=== PATIENT | male | born 1960 | race African-American/Black ===

== ENCOUNTER 2017-05-05 05:30 | Outpatient (CLI) | payer BC, OTHER ==
[~2017-05-05] VITALS: Ht 180.3 cm; Wt 95.3 kg
[2017-05-05] MEDS ORDERED: QUET25TA73 PO ×2 (10:49)
[2017-05-05] MEDS ORDERED: METF500T4 PO ×2 (10:49)
[2017-05-05] MEDS ORDERED: BACL10TA PO ×2 (10:49)
[2017-05-05] MEDS ORDERED: NITR100C10 PO ×2 (10:49)
[2017-05-05] MEDS ORDERED: OXYC-465 PO ×2 (10:49)
[2017-05-05] MEDS ORDERED: SIMV10TA3 PO ×2 (10:49)
[2017-05-05] MEDS ORDERED: LISI10TA2 PO ×2 (10:49)
[2017-05-07] MEDS ORDERED: NITR-68 PO ×2 (10:38)
[2017-05-07] MEDS ORDERED: TAMS0.4C98 PO ×2 (10:38)
== END 2017-05-05 10:50 ==
LOC: PREOP 05:30
PROVIDERS: ATTEND Urology
DX: Z01.818 Encounter for other preprocedural examination; N20.1 Calculus of ureter

== ENCOUNTER 2017-05-07 07:15 | Day surgery (SDC) | payer BC, OTHER ==
[~2017-05-07] VITALS: Ht 180.3 cm; Wt 95.3 kg
[~2017-05-07 07:15] MED LIST: BACL10TA PO; LISI10TA2 PO; METF500T4 PO; NITR100C10 PO; OXYC-465 PO; QUET25TA73 PO; SIMV10TA3 PO
[2017-05-07 07:22] VITALS: BP 134/95
--- NOTE | 2017-05-07 07:36 | Progress Note-Pre Operative ---
Pre-Operative Progress Note H&P Reviewed The H&P was reviewed, patient examined and no changes noted. Date Seen by Provider: May 07, 2017 Time Seen by Provider: 07:35 Date H&P Reviewed: May 07, 2017 Time H&P Reviewed: 07:35 Pre-Operative Diagnosis: RT URETERAL STONE KIANA MATSON MD May 07, 2017 7:36 am
[2017-05-07] MEDS ORDERED: LACTATED RINGERS 1,000 ML IV PRN (07:37)
[2017-05-07] MEDS ORDERED: cefTRIAXone 1 GM/NS 50 ML IVPB IV ONE ×2 (07:45)
[2017-05-07] MEDS ORDERED: CATHETER FLUSH 10 ML SYR IV PRN (07:45)
[2017-05-07] MEDS ORDERED: fentaNYL INJECTION 100 MCG/2 ML AMP ONE (08:07)
[2017-05-07] MEDS ORDERED: proPOfol 200 MG/20 ML (DIPRIVAN) VIAL IV ONE (08:08)
[2017-05-07] MEDS ORDERED: MIDAZOLAM 2 MG/2 ML (VERSED) VIAL ONE (08:08)
[2017-05-07] MEDS ORDERED: LACTATED RINGERS 1,000 ML IV ONE (08:08)
[2017-05-07] MEDS ORDERED: SEVOFLURANE (ULTANE) 15 ML INHAL SOLN ONE (08:08)
[2017-05-07] MEDS ORDERED: LIDOCAINE PF 2% 5 ML (XYLOCAINE) VIAL ONE (08:08)
[2017-05-07] MEDS ORDERED: FUROSEMIDE 40 MG/4 ML INJ (LASIX) ONE (08:11)
[2017-05-07] MEDS ORDERED: ONDANSETRON 4 MG/2 ML (SDV) Z0FRAN ONE (08:11)
--- NOTE | 2017-05-07 08:33 | Progress Note-Post Operative ---
Post-Operative Progess Note Surgeon (s)/Shovel Logger (s) Surgeon KIANA MATSON MD Shovel Logger: N/A Pre-Operative Diagnosis RT URETERAL STONE (PROXIMAL) Post-Operative Diagnosis SAME Procedure & Operative Findings Date of Procedure 05/07/17 Procedure Performed/Findings RT ESWL FOR RT PROXIMAL URETERAL STONE Anesthesia Type GENERAL Estimated Blood Loss Estimated blood loss (mL): N/A Specimens/Packing Specimens Removed N/A Packing: N/A KIANA MATSON MD May 07, 2017 8:32 am
--- NOTE | 2017-05-07 08:38 | Discharge Inst-Urology ---
Discharge Inst-Urology Discharge Medications New, Converted, or Re-newed RX: RX on Chart Patient Instructions/Follow Up Plan Please make appointment to been seen in office Saturday 05/12. KUB prior to it KUB on way home Post ESWL instructions Increase oral fluids for 48 hours and then as needed. Diet and Activity as tolerated. If questions or concerns contact your physician Or seek help at emergency department. KIANA MATSON MD May 07, 2017 8:38 am
[2017-05-07 09:45] VITALS: BP 142/94
[2017-05-07 10:15] VITALS: BP 143/95
--- NOTE | 2017-05-07 10:22 | Diagnostic Imaging Report ---
Supine view of the abdomen. INDICATION: Right-sided stone. FINDINGS: There is a 9-mm calcification seen in the mid abdomen at L3-L4 disc level on the right side which may represent a ureteric stone. No other suspicious calcifications identified. Moderate amounts of fecal material seen in the colon. Mild/ moderate degenerative changes of the hip joint seen. IMPRESSION: A 9-mm calcification to the right of the spine at L3-L4 level may represent a proximal right ureteric stone. Dictated by: Dictated on workstation # [id number]
--- NOTE | 2017-05-07 10:31 | Diagnostic Imaging Report ---
Supine view of the abdomen. INDICATION: Post lithotripsy. FINDINGS: A 9-mm proximal right ureter stone is seen at upper L4 level with no gross fragmentation seen at this time. No other definite stone seen. IMPRESSION: Proximal right ureteric 9-mm stone. Dictated by: Dictated on workstation # [id number]
[2017-05-07] MEDS ORDERED: NITR-68 PO (10:38)
[2017-05-07] MEDS ORDERED: TAMS0.4C98 PO (10:38)
[2017-05-07 10:45] VITALS: BP 128/90
[2017-05-07 11:05] VITALS: BP 128/90
--- NOTE | 2017-05-07 17:22 | OPERATIVE REPORT ---
PROCEDURE PHYSICIAN: KIANA MATSON DATE OF PROCEDURE: 05/07/2017 PREOPERATIVE DIAGNOSIS: Right proximal ureteral stone. POSTOPERATIVE DIAGNOSIS: Right proximal ureteral stone. OPERATION: Right ESWL. SURGEON: Tita. ANESTHESIA: General. COMPLICATIONS: None. PROCEDURE: Under satisfactory general anesthesia, the patient supine on the ESWL table, the right proximal ureteral stone was localized. Shocks were delivered KV of 6. Total of 3000 shocks were delivered and the stone was seen to be fragmented well. The patient received 30 mg of Toradol and 40 mg of Lasix at the end of the procedure. He tolerated the procedure and anesthesia well and was sent to recovery room in stable condition. Noted on his lab work that his renal stone profile was essentially normal. When we see him at the office we will do a stone risk profile. I will see him back on Friday with a KUB and depending on the results, we will decide if he needs another ESWL next Friday or not. Job ID: [id number] Dictated Date: 05/07/2017 08:49:11 Public Information Officer Date: 05/07/2017 17:18:02 / fabian
== END 2017-05-07 11:05 | disposition home or self-care (01) ==
LOC: SDC 07:15
PROVIDERS: ATTEND Urology
DX: N20.1 Calculus of ureter (principal); Z11.2 Encounter for screening for other bacterial diseases; I10 Essential (primary) hypertension; E11.9 Type 2 diabetes mellitus without complications; Z79.899 Other long term (current) drug therapy; F17.210 Nicotine dependence, cigarettes, uncomplicated; E78.5 Hyperlipidemia, unspecified; B18.2 Chronic viral hepatitis C; J45.909 Unspecified asthma, uncomplicated
CPT/HCPCS: 74000; 82962; 87081

== ENCOUNTER → 2017-05-13 | Outpatient (CLI) | payer BC ==
[~2017-05-13] MED LIST changes: +NITR-68 PO; +TAMS0.4C98 PO
--- NOTE | 2017-05-13 14:09 | Diagnostic Imaging Report ---
EXAMINATION: Supine view of the abdomen. INDICATION: Right ureteric stone. FINDINGS: When compared to 05/07/2017, the previously seen 9 mm density along the proximal right ureter is not seen. This is possibly related to fragmentation with passage or stone retrieval. No definitive stone is seen at this time along the urinary tract. IMPRESSION: No definite stone is seen at this time. Dictated by: Dictated on workstation # [id number]
== END ==
LOC: RAD 10:35
PROVIDERS: ATTEND Urology
DX: N20.1 Calculus of ureter (principal)
CPT/HCPCS: 74000

== ENCOUNTER → 2020-08-08 | Outpatient (CLI) | payer BC ==
[~2020-08-08] MED LIST changes: +METF-397 PO; -METF500T4 PO; -OXYC-465 PO; +OXYC-556 PO; +SIMV10TA26 PO; -SIMV10TA3 PO; -TAMS0.4C98 PO; +TMSL.4C PO
--- NOTE | 2020-08-08 14:34 | Diagnostic Imaging Report ---
INDICATION: Chronic liver disease, evaluate for osteoporosis, osseous demineralization. COMPARISON: None available. FINDINGS: AP Spine L1-L4: [BMD (g/cm2): 1.018] [T-Score: -1.9] [Z-Score: -2.9] [BMD Previous: NA] [BMD % Change: NA] LT Hip Neck: [BMD (g/cm2): 0.830] [T-Score: -1.8] [Z-Score: -2.4] LT Hip Total: [BMD (g/cm2):0.912] [T-Score:-1.3] [Z-Score: -2.2] [BMD Previous: NA] [BMD % Change: NA] RT Hip Neck: [BMD (g/cm2):1.045] [T-Score:-0.2] [Z-Score:-0.8] RT Hip Total: [BMD (g/cm2):1.004] [T-score:-0.7] [Z-Score:-1.6] [BMD Previous:NA] [BMD % Change:NA] *Indicates significant change from prior examination based on 95% confidence level. World Health Organization criteria for BMD interpretation classify patients as Normal (T-score at or above -1.0), Osteopenic (T-score between -1.0 and -2.5) or Osteoporotic (T-score at or below -2.5). LIMITATIONS AND MODIFICATION: None. FRACTURE RISK (FRAX SCORE): The ten year probability of (%): Major Osteoporotic Fracture: [6.6] Hip Fracture: [1.6] IMPRESSION: 1. Osteopenia (Low bone mass). 2. Baseline examination. 3. See below National Osteoporosis Foundation guidelines on when to potentially initiate pharmacologic therapy. Based on the National Osteoporosis Foundation Guidelines, pharmacologic treatment should be initiated in any of the following, unless clinical conditions suggest otherwise: * Any patient with prior fragility fracture of the hip or vertebrae. A spine fracture indicates 5X risk for subsequent spine fracture and 2X risk for subsequent hip fracture. * Osteoporosis (T-score <-2.5). * Postmenopausal women and men age 50 and older with low bone mass/osteopenia (T-score between -1.0 and -2.5) by DXA and 10-year major osteoporotic fracture greater than 20% or a 10-year probability of hip fracture greater than 3%. These fracture risks are supplied above in the FRAX score, if applicable. * Clinician judgement and/or patient preferences may indicate treatment for people with 10-year fracture probabilities above or below these levels. Dictated by: Dictated on workstation # [id number]
== END ==
LOC: RAD 12:30
PROVIDERS: ATTEND Nurse Practitioner Family
DX: Z13.820 Encounter for screening for osteoporosis (principal); M54.9 Dorsalgia, unspecified; M85.80 Other specified disorders of bone density and structure, unspecified site; K74.69 Other cirrhosis of liver
CPT/HCPCS: 77080

== ENCOUNTER → 2020-12-26 | Outpatient (CLI) | payer OTHER ==
[~2020-12-26] MED LIST changes: -LISI10TA2 PO; +LISI10TA25 PO; +QUET25TA34 PO; -QUET25TA73 PO
[2020-12-26 13:04] LABS: HEMATOCRIT 47 % (40-54); HEMOGLOBIN 15.3 G/DL (13.3-17.7); MEAN CORPUSCULAR HEMOGLOBIN 26 PG (25-34); WHITE BLOOD COUNT 9.5 10^3/uL (4.3-11.0)
[2020-12-26 13:05] LABS: BASOPHILS % (AUTO) 1 % (0-10); EOSINOPHILS # (AUTO) 0.1 10^3/uL (0.0-0.3); EOSINOPHILS % (AUTO) 1 % (0-10); LYMPHOCYTES # (AUTO) 2.9 X 10^3 (1.0-4.0); LYMPHOCYTES % (AUTO) 31 % (12-44); MEAN CORPUSCULAR HGB CONC 33 G/DL (32-36); MEAN CORPUSCULAR VOLUME 81 FL (80-99); MEAN PLATELET VOLUME 9.8 FL (7.4-10.4); MONOCYTES # (AUTO) 0.6 X 10^3 (0.0-1.0); MONOCYTES % (AUTO) 6 % (0-12); NEUTROPHILS # (AUTO) 5.8 X 10^3 (1.8-7.8); NEUTROPHILS % (AUTO) 61 % (42-75); PLATELET COUNT 275 10^3/uL (130-400)
[2020-12-26 13:06] LABS: BASOPHILS # (AUTO) 0.1 10^3/uL (0.0-0.1)
[2020-12-26 13:11] LABS: PROTHROMBIN TIME PATIENT 13.1 SEC (12.2-14.7)
[2020-12-26 13:22] LABS: ALANINE AMINOTRANSFERASE 35 U/L (0-55); ALBUMIN 4.6 GM/DL (3.2-4.5); ALKALINE PHOSPHATASE 100 U/L (40-136); BILIRUBIN,TOTAL 0.3 MG/DL (0.1-1.0); BUN/CREATININE RATIO 16; CALCIUM 9.7 MG/DL (8.5-10.1); CARBON DIOXIDE 20 MMOL/L (21-32); CHLORIDE 102 MMOL/L (98-107); GFR ESTIMATED > 60; GLUCOSE 134 MG/DL (70-105); POTASSIUM 4.6 MMOL/L (3.6-5.0); SODIUM 137 MMOL/L (135-145)
== END ==
LOC: LAB FS 12:29
PROVIDERS: ATTEND Nurse Practitioner Adult Health
DX: K74.60 Unspecified cirrhosis of liver (principal); E11.9 Type 2 diabetes mellitus without complications; E55.9 Vitamin D deficiency, unspecified; Z86.19 Personal history of other infectious and parasitic diseases
CPT/HCPCS: 36415; 80053; 82105; 82306; 85025; 85610

== ENCOUNTER 2021-03-18 07:34 | Inpatient (IN) | payer OTHER ==
[~2021-03-18] VITALS: Ht 180.3 cm; Wt 100.8 kg
[2021-03-18] MEDS ORDERED: NS IV 500 ML 500 ML IV ONE (08:30)
[2021-03-18] MEDS ORDERED: RT-ALBUTEROL/IPRATROPIUM 3 ML (DUONEB) VIAL INH ONE (08:30)
--- NOTE | 2021-03-18 08:30 | ED Respiratory ---
General Chief Complaint: Respiratory Problems Stated Complaint: SOB | COUGH | ABDOMINAL PAIN | HOT FLASH Nursing Triage Note: Patient presents to the ED with c/o of shortness of breath, chest discomfort, and cough. He states that he started having shortness of breath Friday that has worsened over the last 2 days. He reports chest pain when he coughs. He states, "I think I have pneumonia." Patient oxygen saturation 82% on RA placed on 6L of oxygen via nasal cannula and his saturation is now 93%. History of Present Illness Date Seen by Provider: March 18, 2021 Time Seen by Provider: 08:15 Initial Comments 61-year-old male presents with shortness of breath, cough, chest pain with cough. He reports that around 5 days ago he started feeling a little rough but then over the last 2 days he has had increasing cough, shortness of breath. Upon arrival to the ER he O2 saturation was 82%. Patient was placed on O2 initial 6 L and improved to 93 he was slowly decreased to 2 L and maintained. Patient has abdominal discomfort with known liver enlargement with hepatitis C. He feels like he has been sweating a lot. He does not report any fever outside of the "sweating a lot" no nausea vomiting. Denies orthopnea. Allergies and Home Medications Allergies Coded Allergies: No Known Drug Allergies (Unverified , 05/05/17) Home Medications Baclofen 10 Mg Tablet, 10 MG PO TID, (Reported) Lisinopril 10 Mg Tablet, 10 MG PO DAILY, (Reported) Metformin HCl 500 Mg Tablet, 500 MG PO BID WITH MEALS, (Reported) Nitrofurantoin Macrocrystal 100 Mg Capsule, 100 MG PO BID TAKE ONE CAPSULE BY MOUTH TWICE A DAY FOR 7 DAYS. USE ALL OF THIS MEDICATION PRESCRIBED. Prescribed by: NICOLE TALAVERA on 05/07/17 1038 Oxycodone HCl/Acetaminophen 1 Each Tablet, 1 EACH PO Q4H PRN for PAIN-MILD TO MODERATE, (Reported) Quetiapine Fumarate 25 Mg Tablet, 25 MG PO BID, (Reported) Simvastatin 10 Mg Tablet, 10 MG PO DAILY, (Reported) Tamsulosin HCl 0.4 Mg Cap, 0.4 MG PO DAILY TAKE ONE CAPSULE BY MOUTH DAILY FOR 14 DAYS. Prescribed by: NICOLE TALAVERA on 05/07/17 1038 Patient Home Medication List Home Medication List Reviewed: Yes Review of Systems Review of Systems Constitutional: see HPI, malaise Respiratory: cough, short of breath Cardiovascular: No chest pain, No palpitations Gastrointestinal: abdominal pain, other (Distention) Musculoskeletal: no symptoms reported Skin: no symptoms reported Psychiatric/Neurological: No Symptoms Reported Hematologic/Lymphatic: No Symptoms Reported Past Gctfxzv-Jrcpyy-Upepby Hx Past Med/Social Hx: Reviewed Nursing Past Med/Soc Hx Patient Social History Alcohol Use: Occasionally Uses Number of Drinks Today: II Alcohol Beverage of Choice: Other Smoking Status: Current Everyday Smoker Type Used: Cigarettes 2nd Hand Smoke Exposure: No Recent Infectious Disease Expo: No Recent Hopitalizations: No Seasonal Allergies Seasonal Allergies: No Past Medical History Surgeries: Yes (right ing hernia) Respiratory: Yes COPD, Emphysema Cardiac: Yes High Cholesterol, Hypertension Neurological: Yes (seizure one time related to a med) Neuropathy Reproductive Disorders: No Genitourinary: No Kidney Stones Gastrointestinal: Yes (Enlarged Liver) Hepatitis Musculoskeletal: Yes Arthritis Endocrine: Yes Diabetes, Non-Insulin dep Cancer: No Psychosocial: No Integumentary: Yes (STATES HAD A WOUND "STAPH INFECTION" 2007, DENIES MRSA, NO CURRENT WOUNDS) Blood Disorders: No Physical Exam Vital Signs - First Documented 03/18/21 07:35 Temp 36.3 Pulse 122 Resp 31 B/P (MAP) 152/87 (108) Pulse Ox 93 O2 Delivery Nasal Cannula O2 Flow Rate 6.00 Capillary Refill : Less Than 3 Seconds Height: 5'11.00" Weight: 210lbs. 0.0oz. 95.765563dp; 31.00 BMI Method: General Appearance: mild distress Respiratory: no respiratory distress, no accessory muscle use, decreased breath sounds Cardiovascular: normal peripheral pulses, tachycardia Gastrointestinal: soft, distended, tenderness (Mild diffuse) Extremities: normal range of motion, non-tender Skin: normal color, warm/dry, other (Multiple old scars) Focused Exam Lactate Level 03/18/21 08:35: Lactic Acid Level 1.45 Lactic Acid Level Laboratory Tests Test 03/18/21 08:35 Lactic Acid Level 1.45 MMOL/L (0.50-2.00) Progress/Results/Core Measures Suspected Sepsis Recent Fever Within 48 Hours: No Infection Criteria Present: Suspected New Infection New/Unexplained Altered Menta: No Sepsis Screen: Possible Sepsis Risk SIRS Temperature: Pulse: 122 Respiratory Rate: 31 Laboratory Tests 03/18/21 08:35: White Blood Count 13.7H Blood Pressure 152 /87 Mean: 108 03/18/21 08:35: Lactic Acid Level 1.45 Laboratory Tests 03/18/21 08:35: Creatinine 0.81, INR Comment 1.1, Platelet Count 292, Total Bilirubin 0.6 Results/Orders Lab Results Laboratory Tests Test 03/18/21 08:35 03/18/21 08:37 Range/Units White Blood Count 13.7 H 4.3-11.0 10^3/uL Red Blood Count 4.66 4.35-5.85 10^6/uL Hemoglobin 12.6 L 13.3-17.7 G/DL Hematocrit 38 L 40-54 % Mean Corpuscular Volume 82 80-99 FL Mean Corpuscular Hemoglobin 27 25-34 PG Mean Corpuscular Hemoglobin Concent 33 32-36 G/DL Red Cell Distribution Width 15.6 H 10.0-14.5 % Platelet Count 292 130-400 10^3/uL Mean Platelet Volume 10.0 7.4-10.4 FL Immature Granulocyte % (Auto) 1 % Neutrophils (%) (Auto) 80 H 42-75 % Lymphocytes (%) (Auto) 12 12-44 % Monocytes (%) (Auto) 6 0-12 % Eosinophils (%) (Auto) 1 0-10 % Basophils (%) (Auto) 0 0-10 % Neutrophils # (Auto) 11.0 H 1.8-7.8 X 10^3 Lymphocytes # (Auto) 1.6 1.0-4.0 X 10^3 Monocytes # (Auto) 0.8 0.0-1.0 X 10^3 Eosinophils # (Auto) 0.1 0.0-0.3 10^3/uL Basophils # (Auto) 0.1 0.0-0.1 10^3/uL Immature Granulocyte # (Auto) 0.1 0.0-0.1 10^3/uL Prothrombin Time 14.6 12.2-14.7 SEC INR Comment 1.1 0.8-1.4 Sodium Level 131 L 135-145 MMOL/L Potassium Level 6.4 H 3.6-5.0 MMOL/L Chloride Level 101 98-107 MMOL/L Carbon Dioxide Level 17 L 21-32 MMOL/L Anion Gap 13 5-14 MMOL/L Blood Urea Nitrogen 9 7-18 MG/DL Creatinine 0.81 0.60-1.30 MG/DL Estimat Glomerular Filtration Rate > 60 BUN/Creatinine Ratio 11 Glucose Level 112 H 70-105 MG/DL Lactic Acid Level 1.45 0.50-2.00 MMOL/L Calcium Level 9.1 8.5-10.1 MG/DL Corrected Calcium 9.8 8.5-10.1 MG/DL Total Bilirubin 0.6 0.1-1.0 MG/DL Aspartate Amino Transf (AST/SGOT) 66 H 5-34 U/L Alanine Aminotransferase (ALT/SGPT) 22 0-55 U/L Alkaline Phosphatase 102 40-136 U/L Troponin I < 0.30 <0.30 NG/ML Pro-B-Type Natriuretic Peptide 250.1 H <75.0 PG/ML Total Protein 8.0 6.4-8.2 GM/DL Albumin 3.1 L 3.2-4.5 GM/DL C-Reactive Protein 28.65 H <0.50 MG/DL My Orders Orders - LYNCH,MALENA L DO Cbc With Automated Diff (03/18/21 08:30) Comprehensive Metabolic Panel (03/18/21 08:30) Lactic Acid Analyzer (03/18/21 08:30) Troponin I Fs (03/18/21 08:30) Chest Pa/Lat (2 View) (03/18/21 08:30) Ed Iv/Invasive Line Start (03/18/21 08:30) Ns Iv 500 Ml (Sodium Chloride 0.9%) (03/18/21 08:30) Albuterol/Ipra Inhalation Soln (Duoneb I (03/18/21 08:30) Svn Small Volume Nebulizer (03/18/21 08:30) Ekg Tracing (03/18/21 07:50) Crp Fs (03/18/21 08:37) Arterial Blood Gas (03/18/21 09:36) Protime With Inr (03/18/21 09:36) Probnp Fs (03/18/21 09:36) Furosemide Injection (Lasix Injection) (03/18/21 09:45) Nitroglycerin 0.4 Mg Btl 25's (Nitrostat (03/18/21 10:00) Medications Given in ED Current Medications Medications Dose Ordered Sig/Marcio Route Start Time Stop Time Status Last Admin Dose Admin Albuterol/ Ipratropium 3 ml ONCE ONCE INH 03/18/21 08:30 03/18/21 08:33 DC 03/18/21 08:49 3 ML Furosemide 40 mg ONCE ONCE IVP 03/18/21 09:45 03/18/21 09:47 DC 03/18/21 09:52 40 MG Sodium Chloride 500 ml @ 0 mls/hr Q0M ONCE IV 03/18/21 08:30 03/18/21 08:33 DC 03/18/21 08:49 999 MLS/HR Vital Signs/I&O 03/18/21 07:35 Temp 36.3 Pulse 122 Resp 31 B/P (MAP) 152/87 (108) Pulse Ox 93 O2 Delivery Nasal Cannula O2 Flow Rate 6.00 Capillary Refill : Less Than 3 Seconds Blood Pressure Mean: 108 Progress Note : Progress Note Patient with oxygen improvement at 2 L of O2. He is feeling a lot better. Patient felt better following a DuoNeb treatment. Patient has x-ray that shows mixed picture of pulmonary edema with likely some pneumonia. Patient be treated with some Rocephin, azithromycin and IV Lasix. Patient to be transferred to [place] for further inpatient treatment hospitalization. Discussed with Dr. Pearce who accepted patient. She would like patient placed in ICU for observation initially. Dr. Pearce requested ABG. Patient is a very difficult stick due to previous IV drug use in the past. Lab and nursing was able to get radial blood draw. Patient was offered femoral stick but declined, stating that he would go home first. Patient will be transferred in stable condition and he says they can attempt the ABG down there. Patient was also offered BiPAP to help push some of fluid off his lines and declined at this time. ECG Initial ECG Impression Date: March 18, 2021 Initial ECG Impression Time: 07:50 Initial ECG Rate: 121 Initial ECG Rhythm: S.Tach Initial ECG Impression: Nonspecific Changes Comment Sinus tach, occasional pac, no acute findings. Diagnostic Imaging Diagonstic Imaging: Xray Plain Films/CT/US/NM/MRI: chest Comments Indication: Shortness of breath. Findings: There is widespread abnormal interstitial and alveolar opacities demonstrated within the lungs that demonstrates some peripheral sparing. There is enlargement of the cardiac silhouette. Primary considerations would include pulmonary edema though the possibility of multifocal pneumonia would need to be considered in the appropriate setting. There is no large effusion. There is no pneumothorax. IMPRESSION: Widespread bilateral abnormal interstitial and alveolar opacities which do demonstrate some apparent peripheral sparing. Primary considerations would be that of pulmonary edema though a multifocal pneumonia would need to be considered. Chest CT follow-up should also be considered after treatment. Departure Impression Primary Impression: Pneumonia Qualified Codes: J18.9 - Pneumonia, unspecified organism Additional Impression: Pulmonary edema Qualified Codes: J81.0 - Acute pulmonary edema Disposition: 30 STILL A PATIENT Condition: Stable Admissions Decision to Admit Reason: Admit from ER (General) Decision to Admit/Date: March 18, 2021 Time/Decision to Admit Time: 09:53 Departure-Patient Inst. Referrals: LIAM SCHERER APRN (PCP/Family) Primary Care Physician MALENA LYNCH DO March 18, 2021 08:30
[2021-03-18 08:45] LABS: BASOPHILS # (AUTO) 0.1 10^3/uL (0.0-0.1); BASOPHILS % (AUTO) 0 % (0-10); EOSINOPHILS # (AUTO) 0.1 10^3/uL (0.0-0.3); EOSINOPHILS % (AUTO) 1 % (0-10); HEMATOCRIT 38 % (40-54); HEMOGLOBIN 12.6 G/DL (13.3-17.7); LYMPHOCYTES # (AUTO) 1.6 X 10^3 (1.0-4.0); LYMPHOCYTES % (AUTO) 12 % (12-44); MEAN CORPUSCULAR HEMOGLOBIN 27 PG (25-34); MEAN CORPUSCULAR HGB CONC 33 G/DL (32-36); MEAN CORPUSCULAR VOLUME 82 FL (80-99); MONOCYTES # (AUTO) 0.8 X 10^3 (0.0-1.0); MONOCYTES % (AUTO) 6 % (0-12); NEUTROPHILS % (AUTO) 80 % (42-75); PLATELET COUNT 292 10^3/uL (130-400); WHITE BLOOD COUNT 13.7 10^3/uL (4.3-11.0)
[2021-03-18 09:08] LABS: SODIUM 131 MMOL/L (135-145)
[2021-03-18 09:09] LABS: CARBON DIOXIDE 17 MMOL/L (21-32); CHLORIDE 101 MMOL/L (98-107)
[2021-03-18 09:10] LABS: ALANINE AMINOTRANSFERASE 22 U/L (0-55); ALBUMIN 3.1 GM/DL (3.2-4.5); ALKALINE PHOSPHATASE 102 U/L (40-136); BILIRUBIN,TOTAL 0.6 MG/DL (0.1-1.0); BUN/CREATININE RATIO 11; CALCIUM 9.1 MG/DL (8.5-10.1); CREATININE SERUM 0.81 MG/DL (0.60-1.30); GFR ESTIMATED > 60; GLUCOSE 112 MG/DL (70-105)
--- NOTE | 2021-03-18 09:15 | Diagnostic Imaging Report ---
Indication: Shortness of breath. Findings: There is widespread abnormal interstitial and alveolar opacities demonstrated within the lungs that demonstrates some peripheral sparing. There is enlargement of the cardiac silhouette. Primary considerations would include pulmonary edema though the possibility of multifocal pneumonia would need to be considered in the appropriate setting. There is no large effusion. There is no pneumothorax. IMPRESSION: Widespread bilateral abnormal interstitial and alveolar opacities which do demonstrate some apparent peripheral sparing. Primary considerations would be that of pulmonary edema though a multifocal pneumonia would need to be considered. Chest CT follow-up should also be considered after treatment. Dictated by: Dictated on workstation # [id number]
[2021-03-18 09:28] LABS: POTASSIUM 6.4 MMOL/L (3.6-5.0)
[2021-03-18] MEDS ORDERED: FUROSEMIDE 40 MG/4 ML INJ (LASIX) IVP ONE (09:45)
[2021-03-18] MEDS ORDERED: NITROGLYCERIN 0.4 MG SL TABS BTL 25'S SL ONE ×2 (09:53→10:00)
[2021-03-18 09:55] LABS: INR 1.1 (0.8-1.4); PROTHROMBIN TIME PATIENT 14.6 SEC (12.2-14.7)
--- NOTE | 2021-03-18 11:29 | History & Physical-Hospitalist ---
History of Present Illness HPI/Chief Complaint CC: Dyspnea HPI: This is a 61yoAAM clinic patient of [facility] who presents to ICU 2 from [facility] ER due to acute respiratory failure. Patient appears to have pulmonary edema and PNA. COVID test was negative. BiPAP was attempted but he did not tolerate that well and will transition to Vapotherm after reviewing his ABG. Abx maintained and all home meds were restarted. Patient has a h/o HCV and hepatomegly but his abdomen appears to be distended. Source: patient, RN/MD, old records Exam Limitations: clinical condition (on biPAP) Date Seen 03/18/21 Time Seen by a Provider: 12:15 Attending Physician Lakisha Pearce Bradley P Aprn Referring Physician Date of Admission March 18, 2021 at 11:00 Home Medications & Allergies Home Medications Reviewed patient Home Medication Reconciliation performed by pharmacy medication reconciliations chemistry technician and/or nursing. Patients Allergies have been reviewed. Allergies Allergies Coded Allergies No Known Drug Allergies (Unverified05/05/17) Past Medical/Social/Family Hx Patient Social History Marrital Status: single Employed/Student: unemployed Tobacco Use?: Yes Smoking Status: Current Everyday Smoker Alcohol Use?: Yes Alcohol type: Beer, Hard Liquor Alcohol Frequency: Daily Immunizations Up To Date First/Initial COVID19 Vaccinat: December 2020 Second COVID19 Vaccination Leon: January 2021 Past Medical History HCV Chronic pain on Oxycodone Hepatomegly Mood disorder on Seroquel HTN DM Depression BPH Review of Systems Constitutional: see HPI, malaise, weakness Respiratory: dyspnea on exertion Physical Exam Physical Exam Vital Signs Vital Signs - First Documented 03/18/21 03/18/21 07:35 11:10 Temp 36.3 Pulse 122 Resp 31 B/P (MAP) 152/87 (108) Pulse Ox 93 O2 Delivery Nasal Cannula O2 Flow Rate 6.00 FiO2 80 Capillary Refill : Less Than 3 Seconds Height, Weight, BMI Height: 5'11.00" Weight: 210lbs. 0.0oz. 95.773319kf; 31.00 BMI Method: General Appearance: Anxious, Chronically ill, Mild Distress Eyes: Right Eye Normal Inspection, Right Eye PERRL HEENT: PERRL/EOMI, Normal ENT Inspection, Pharynx Normal, Moist Mucous Membranes Neck: Full Range of Motion, Normal Inspection, Non Tender Respiratory: Chest Non Tender, Lungs Clear, Normal Breath Sounds, No Accessory Muscle Use, No Respiratory Distress Cardiovascular: Regular Rate, Rhythm, No Edema, No Gallop, No JVD, No Murmur, Normal Peripheral Pulses Gastrointestinal: Normal Bowel Sounds, No Organomegaly, No Pulsatile Mass, Soft, Hepatomegaly, Tenderness Back: Normal Inspection, No CVA Tenderness, No Vertebral Tenderness Extremity: Normal Capillary Refill, Normal Inspection, Normal Range of Motion, Non Tender, No Calf Tenderness, No Pedal Edema Neurologic/Psychiatric: Alert, Oriented x3, No Motor/Sensory Deficits, Normal Mood/Affect Skin: Normal Color, Warm/Dry Lymphatic: No Adenopathy Results Results/Procedures Labs Laboratory Tests 03/18/21 08:35 03/19/21 03:21 Patient resulted labs reviewed. Assessment/Plan Admission Diagnosis Assessment: Acute respiratory failure placed on biPAP PNA Pulmonary edema Leukocytosis Alcoholism Smoker HCV Chronic pain on Oxycodone Hepatomegly Mood disorder on Seroquel HTN DM Depression BPH Plan: Home meds IV abx ICU Vapotherm Monitor closely Admission Status: Inpatient Order (span 2 midnights) Reason for Inpatient Admission: resp failure Diagnosis/Problems Diagnosis/Problems (1) Pneumonia Status: Acute Qualifiers: Pneumonia type: due to unspecified organism Laterality: unspecified laterality Lung location: unspecified part of lung Qualified Codes: J18.9 - Pneumonia, unspecified organism (2) Pulmonary edema Status: Acute Qualifiers: Chronicity: acute Qualified Codes: J81.0 - Acute pulmonary edema LAKISHA PEARCE DO March 18, 2021 11:29
[2021-03-18 11:40] VITALS: BP 105/72
[2021-03-18 11:43] LABS: ABG BASE EXCESS -3.8 MMOL/L (-2.5-2.5); ABG OXYGEN SATURATION 61 % (94-100); ABG PCO2 36 MMHG (35-45); ABG PH 7.37 (7.37-7.43); ABG TCO2 21.9 MMOL/L (21.0-31.0); ALLENS TEST POSITIVE; INSPIRED O2 80; VENTILATOR NO
[2021-03-18 11:44] LABS: PATIENT TEMP 37
[2021-03-18 11:45] LABS: ABG PO2 37 MMHG (79-93)
[2021-03-18 12:00] LABS: ABG BASE EXCESS -3.3 MMOL/L (-2.5-2.5); ABG OXYGEN SATURATION 97 % (94-100); ABG PCO2 35 MMHG (35-45); ABG PH 7.39 (7.37-7.43); ABG PO2 78 MMHG (79-93); ABG TCO2 21.9 MMOL/L (21.0-31.0)
[2021-03-18 12:02] LABS: ALLENS TEST POSITIVE; INSPIRED O2 60; PATIENT TEMP 37; VENTILATOR NO
[2021-03-18 12:20] VITALS: BP 102/73
[2021-03-18] MEDS ORDERED: RT-ALBUTEROL/IPRATROPIUM 3 ML (DUONEB) VIAL INH PRN (12:30)
[2021-03-18] MEDS ORDERED: CATHETER FLUSH 10 ML SYR IV PRN (12:45)
[2021-03-18] MEDS ORDERED: RT-ALBUTEROL SULF 2.5 MG/3 ML PRE-MIX VIAL IH PRN (12:45)
[2021-03-18] MEDS: AZITHROMYCIN 500 MG/NS 250 ML IVPB IV SCH ×2 (13:08)
[2021-03-18] MEDS: ENOXAPARIN 40 MG/0.4 ML (LOVENOX) SYR SC SCH (13:08)
[2021-03-18] MEDS: cefTRIAXone 1,000 MG/SWFI 10 ML IV PUSH IV SCH ×2 (13:08)
[2021-03-18] MEDS: RT-ALBUTEROL/IPRATROPIUM 3 ML (DUONEB) VIAL INH SCH ×3 (13:27→21:14)
[2021-03-18] MEDS: CATHETER FLUSH 10 ML SYR IV SCH ×2 (14:28→22:06)
[2021-03-18] MEDS ORDERED: OXYC10TA7 PO (17:14)
[2021-03-18] MEDS ORDERED: NON-FORMULARY MEDICATION 1 EA EA (Oxycodone HCl 10 MG) PO PRN (17:15)
[2021-03-18] MEDS ORDERED: AMLO5TAB4 PO (19:48)
[2021-03-18] MEDS ORDERED: GLIP10TA13 PO (19:48)
[2021-03-18] MEDS ORDERED: SERT-412 PO (19:48)
[2021-03-18] MEDS ORDERED: OMEP20TA7 PO (19:48)
[2021-03-18] MEDS ORDERED: EMPA1TAB21 PO (19:50)
[2021-03-18] MEDS: QUEtiapine 25 MG (SEROquel) TAB IMMEDIATE RELEASE PO SCH (21:21)
[2021-03-19] MEDS: RT-ALBUTEROL/IPRATROPIUM 3 ML (DUONEB) VIAL INH SCH ×6 (02:31→21:46)
[2021-03-19 03:34] LABS: BASOPHILS % (AUTO) 0 % (0-10); EOSINOPHILS # (AUTO) 0.1 10^3/uL (0.0-0.3); EOSINOPHILS % (AUTO) 1 % (0-10); HEMATOCRIT 34 % (40-54); HEMOGLOBIN 11.1 g/dL (13.3-17.7); LYMPHOCYTES # (AUTO) 2.8 10^3/uL (1.0-4.0); LYMPHOCYTES % (AUTO) 18 % (12-44); MEAN CORPUSCULAR HEMOGLOBIN 27 pg (25-34); MEAN CORPUSCULAR HGB CONC 33 g/dL (32-36); MEAN CORPUSCULAR VOLUME 82 fL (80-99); MEAN PLATELET VOLUME 9.6 fL (9.0-12.2); MONOCYTES # (AUTO) 1.4 10^3/uL (0.0-1.0); MONOCYTES % (AUTO) 9 % (0-12); NEUTROPHILS # (AUTO) 10.7 10^3/uL (1.8-7.8); NEUTROPHILS % (AUTO) 71 % (42-75); PLATELET COUNT 308 10^3/uL (130-400); WHITE BLOOD COUNT 15.2 10^3/uL (4.3-11.0)
[2021-03-19 03:59] LABS: BUN/CREATININE RATIO 9; CALCIUM 9.2 MG/DL (8.5-10.1); CARBON DIOXIDE 20 MMOL/L (21-32); CHLORIDE 103 MMOL/L (98-107); CREATININE SERUM 1.02 MG/DL (0.60-1.30); GFR ESTIMATED > 60; GLUCOSE 104 MG/DL (70-105); MAGNESIUM 1.7 MG/DL (1.6-2.4); PHOSPHORUS 3.2 MG/DL (2.3-4.7); POTASSIUM 3.8 MMOL/L (3.6-5.0); SODIUM 136 MMOL/L (135-145)
[2021-03-19 04:09] LABS: BAND NEUTROPHILS 2 %; LYMPHOCYTES % (MANUAL) 22 %; MONOCYTES % (MANUAL) 10 %; NEUTROPHILS % (MANUAL) 66 %
[2021-03-19 04:10] LABS: ANISOCYTOSIS SLIGHT; NUCLEATED RED BLOOD CELLS 1; POIKILOCYTOSIS SLIGHT; POLYCHROMASIA SLIGHT; SPHEROCYTES SLIGHT
--- NOTE | 2021-03-19 06:05 | Pulmonary Consultation ---
History of Present Illness History of Present Illness Date Seen by Provider: March 19, 2021 Time Seen by Provider: 05:56 Date of Admission Allergies and Home Medications Allergies Coded Allergies: No Known Drug Allergies (Unverified , 05/05/17) Home Medications Amlodipine Besylate 5 Mg Tablet, 5 MG PO DAILY, (Reported) Baclofen 10 Mg Tablet, 10 MG PO TID, (Reported) Empagliflozin/Metformin HCl 1 Each Tab.bp.24h, 1 EACH PO DAILY, (Reported) Glipizide 10 Mg Tablet, 10 MG PO DAILY, (Reported) Lisinopril 10 Mg Tablet, 40 MG PO DAILY, (Reported) Nitrofurantoin Macrocrystal 100 Mg Capsule, 100 MG PO BID TAKE ONE CAPSULE BY MOUTH TWICE A DAY FOR 7 DAYS. USE ALL OF THIS MEDICATION PRESCRIBED. Prescribed by: NICOLE TALAVERA on 05/07/17 1038 Omeprazole 20 Mg Tablet.dr, 20 MG PO DAILY, (Reported) Oxycodone HCl 10 Mg Tablet, 10 MG PO TID PRN for PAIN-MODERATE (5-7), (Reported) Oxycodone HCl/Acetaminophen 1 Each Tablet, 1 EACH PO Q4H PRN for PAIN-MILD TO MODERATE, (Reported) Quetiapine Fumarate 25 Mg Tablet, 100 MG PO BID, (Reported) Sertraline HCl 25 Mg Tablet, 25 MG PO DAILY, (Reported) Simvastatin 10 Mg Tablet, 10 MG PO DAILY, (Reported) Tamsulosin HCl 0.4 Mg Cap, 0.4 MG PO DAILY TAKE ONE CAPSULE BY MOUTH DAILY FOR 14 DAYS. Prescribed by: NICOLE TALAVERA on 05/07/17 1038 Past Jmykrxn-Ckhcvw-Xihtdb Hx Past Med/Social Hx: Reviewed Nursing Past Med/Soc Hx Patient Social History Alcohol Use: Occasionally Uses Number of Drinks Today: II Alcohol Beverage of Choice: Other Smoking Status: Current Everyday Smoker Type Used: Cigarettes 2nd Hand Smoke Exposure: No Recent Infectious Disease Expo: No Recent Hopitalizations: No Have you traveled recently?: No Alcohol Use?: Yes Seasonal Allergies Seasonal Allergies: No Past Medical History Surgeries: Yes (right ing hernia) Respiratory: Yes COPD, Emphysema Cardiac: Yes High Cholesterol, Hypertension Neurological: Yes (seizure one time related to a med) Neuropathy Reproductive Disorders: No Genitourinary: No Kidney Stones Gastrointestinal: Yes (Enlarged Liver) Hepatitis Musculoskeletal: Yes Arthritis Endocrine: Yes Diabetes, Non-Insulin dep Cancer: No Psychosocial: No Integumentary: Yes (STATES HAD A WOUND "STAPH INFECTION" 2007, DENIES MRSA, NO CURRENT WOUNDS) Blood Disorders: No Review of Systems Time Seen by Provider: 05:56 Sepsis Event Evaluation Height, Weight, BMI Height: 5'11.00" Weight: 210lbs. 0.0oz. 95.273684oa; 31.99 BMI Method: Exam Exam Vital Signs Date Time Temp Pulse Resp B/P (MAP) Pulse Ox O2 Delivery O2 Flow Rate FiO2 03/19/21 05:23 96 Vapotherm 35.00 50.00 03/19/21 04:15 97 Vapotherm 35.00 60.00 03/19/21 04:00 114 85/57 (66) 95 Vapotherm 35.00 70.00 03/19/21 04:00 Vapotherm 30.00 70 03/19/21 04:00 36.5 03/19/21 03:18 117 108/72 (84) 94 Vapotherm 35.00 70.00 03/19/21 03:00 117 94 Vapotherm 35.00 70.00 03/19/21 02:31 95 Vapotherm 35.00 60 03/19/21 02:00 112 125/93 (104) 97 Vapotherm 35.00 70.00 03/19/21 01:00 113 03/19/21 01:00 113 30 129/80 (96) 95 Vapotherm 35.00 70.00 03/19/21 00:51 113 126/81 (96) 94 Vapotherm 35.00 70.00 03/19/21 00:00 Vapotherm 30.00 70 03/19/21 00:00 37.0 03/18/21 23:00 118 36 110/67 (81) 94 Vapotherm 35.00 70.00 03/18/21 22:00 116 38 127/80 (96) 97 Vapotherm 35.00 70.00 03/18/21 21:40 115 124/81 (95) 96 Vapotherm 35.00 70.00 03/18/21 21:14 93 Vapotherm 35.00 60 03/18/21 20:00 Vapotherm 30.00 70 03/18/21 20:00 121 28 96 Vapotherm 35.00 70.00 03/18/21 19:19 36.6 120 24 131/83 (99) 93 Vapotherm 35.00 70.00 03/18/21 19:01 93 Vapotherm 35.00 60 03/18/21 19:00 118 03/18/21 18:00 115 97/71 (80) 100 Vapotherm 35.00 70.00 03/18/21 17:00 112 102/70 (81) 94 Vapotherm 35.00 70.00 03/18/21 16:00 Vapotherm 03/18/21 15:34 37.4 118 25 98/80 (86) 93 Vapotherm 35.00 70.00 03/18/21 15:26 35.00 60.00 03/18/21 15:08 94 Vapotherm 35.00 60 03/18/21 15:00 121 36 98/80 (90) 90 Vapotherm 35.00 70.00 03/18/21 14:00 94/66 (76) Vapotherm 35.00 80.00 03/18/21 14:00 35.00 70.00 03/18/21 13:22 95 Vapotherm 35.00 80 03/18/21 13:00 117 26 111/80 (90) 95 Vapotherm 35.00 80.00 03/18/21 12:40 132 03/18/21 12:20 36.3 123 96 80 03/18/21 12:15 Vapotherm 35.00 80.00 03/18/21 12:12 96 Vapotherm 35.00 80 03/18/21 12:00 123 34 102/73 (83) 93 NIV Bilevel 80.00 03/18/21 11:40 128 44 94 60.00 03/18/21 11:10 NIV Bilevel 80 03/18/21 11:10 143 30 147/107 (120) 99 NIV Bilevel 80.00 03/18/21 10:06 36.3 129 26 128/78 (108) 93 Nasal Cannula 3.00 03/18/21 07:35 36.3 122 31 152/87 (108) 93 Nasal Cannula 6.00 I & O 03/19/21 07:00 Intake Total 965 ml Output Total 450 ml Balance 515 ml Height & Weight Height: 5'11.00" Weight: 210lbs. 0.0oz. 95.263028fk; 31.99 BMI Method: General Appearance: Anxious, Chronically ill, Mild Distress HEENT: PERRL/EOMI, Normal ENT Inspection, Pharynx Normal, Moist Mucous Membranes Neck: Full Range of Motion, Normal Inspection, Non Tender Respiratory: Chest Non Tender, Lungs Clear, Normal Breath Sounds, No Accessory Muscle Use, No Respiratory Distress Cardiovascular: Regular Rate, Rhythm, No Edema, No Gallop, No JVD, No Murmur, Normal Peripheral Pulses Capillary Refill: Less Than 3 Seconds Gastrointestinal: soft, distended, tenderness (Mild diffuse) Extremity: Normal Capillary Refill, Normal Inspection, Normal Range of Motion, Non Tender, No Calf Tenderness, No Pedal Edema Neurologic/Psychiatric: Alert, Oriented x3, No Motor/Sensory Deficits, Normal Mood/Affect Skin: Normal Color, Warm/Dry Lymphatic: No Adenopathy Results Lab Laboratory Tests 03/18/21 08:35 03/19/21 03:21 Assessment/Plan Assessment/Plan Acute respiratory failure -Currently on Vapotherm 50% PNA -Rocephin and Azithromax -Cultures pending -Check RVP and influenza -COVID is negative Pulmonary Edema -Lasix -Check ECHO -IVF currently hep locked Alcoholism -Monitor Tobacco dependance -Education HCV Chronic pain on oxycodone HTN DM Depression BPH VETO LANE DO March 19, 2021 06:05
[2021-03-19] MEDS: CATHETER FLUSH 10 ML SYR IV SCH ×3 (06:09→22:35)
[2021-03-19] MEDS: glipiZIDE 5 MG (GLUCOTROL) TAB PO SCH (07:01)
--- NOTE | 2021-03-19 07:33 | Diagnostic Imaging Report ---
INDICATION: Followup pneumonia. Dyspnea. COMPARISON: 03/18/2021 FINDINGS: Single frontal radiographic view of the chest was obtained and continues to demonstrate diffuse prominence of the interstitium with more focal confluent alveolar opacities of the bilateral lower lung bowie, left greater than right. Consolidation of the left base appears more prominent. There is no large effusion or pneumothorax. Cardiac silhouette is mildly enlarged. Pulmonary vasculature is stable. Osseous structures show no acute abnormalities. IMPRESSION: 1. Persistent bilateral diffuse mixed interstitial and alveolar opacities with interval progression of consolidation in the left lower lung. Appearance may be on the basis of mixed interstitial and alveolar edema, although pneumonia remains within the differential. Clinical correlation is advised. 2. Cardiomegaly. Dictated by: Dictated on workstation # [id number]
[2021-03-19] MEDS: amLODIPine 5 MG (NORVASC) TAB PO SCH (08:38)
[2021-03-19] MEDS: SERTRALINE 50 MG (ZOLOFT) TABLET PO SCH (08:38)
[2021-03-19] MEDS: lisINopril 10 MG (PRINIVIL) TABLET PO SCH (08:38)
[2021-03-19] MEDS: QUEtiapine 25 MG (SEROquel) TAB IMMEDIATE RELEASE PO SCH ×2 (08:38→19:47)
[2021-03-19] MEDS: SIMvastatin 10 MG (ZOCOR) TAB PO SCH (08:38)
[2021-03-19] MEDS: PANTOPRAZOLE 20 MG TABLET (PROTONIX) PO SCH (08:38)
[2021-03-19] MEDS ORDERED: ASPI-1238 PO (09:09)
[2021-03-19] MEDS ORDERED: GABA300C PO (09:09)
[2021-03-19] MEDS ORDERED: FENO48TA10 PO (09:09)
[2021-03-19] MEDS ORDERED: AMLO-250 PO (09:09)
[2021-03-19] MEDS ORDERED: QUET100T33 PO (09:09)
[2021-03-19] MEDS ORDERED: EMPA1TAB15 PO (09:09)
[2021-03-19] MEDS ORDERED: TIZA4TAB4 PO (09:09)
[2021-03-19] MEDS ORDERED: LISI40TA9 PO (09:09)
[2021-03-19] MEDS ORDERED: OMEP20CA18 PO (09:09)
[2021-03-19] MEDS: ENOXAPARIN 40 MG/0.4 ML (LOVENOX) SYR SC SCH (13:30)
[2021-03-19] MEDS: AZITHROMYCIN 500 MG/NS 250 ML IVPB IV SCH ×2 (13:30)
[2021-03-19] MEDS: cefTRIAXone 1,000 MG/SWFI 10 ML IV PUSH IV SCH ×2 (13:30)
--- NOTE | 2021-03-19 15:21 | Progress Note ---
Subjective Subjective/Events-last exam Pt states he feels slightly better since admission, but still feels markedly short of breath and overall poorly. Focused Exam Lactate Level 03/18/21 08:35: Lactic Acid Level 1.45 Objective Exam Last Set of Vital Signs Vital Signs Date Time Temp Pulse Resp B/P (MAP) Pulse Ox O2 Delivery O2 Flow Rate FiO2 03/19/21 14:59 94 Vapotherm 25.00 40 03/19/21 14:00 116 48 116/99 (105) 03/19/21 11:51 37.0 Capillary Refill : Less Than 3 Seconds I&O Intake and Output 03/19/21 00:00 Intake Total 915 ml Output Total 450 ml Balance 465 ml Intake Oral 915 ml Output Urine Total 450 ml # Voids 2 Daily Weight Change No General: Alert, Mild Distress Lungs: Clear to Auscultation Heart: No Murmurs, Other (tachycardic) Neuro: Normal Speech Psych/Mental Status: Mood NL Results/Procedures Lab Laboratory Tests 03/19/21 03:21: White Blood Count 15.2H, Red Blood Count 4.14L, Hemoglobin 11.1L, Hematocrit 34L , Mean Corpuscular Volume 82, Mean Corpuscular Hemoglobin 27, Mean Corpuscular Hemoglobin Concent 33, Red Cell Distribution Width 15.0H, Platelet Count 308, Mean Platelet Volume 9.6, Immature Granulocyte % (Auto) 1, Neutrophils (%) (Auto) 71, Lymphocytes (%) (Auto) 18, Monocytes (%) (Auto) 9, Eosinophils (%) (Auto) 1, Basophils (%) (Auto) 0, Neutrophils # (Auto) 10.7H, Lymphocytes # (Auto) 2.8, Monocytes # (Auto) 1.4H, Eosinophils # (Auto) 0.1, Basophils # (Auto) 0.0, Immature Granulocyte # (Auto) 0.2H, Neutrophils % (Manual) 66, Lymphocytes % (Manual) 22, Monocytes % (Manual) 10, Band Neutrophils 2, Nucleated Red Blood Cells 1, Polychromasia SLIGHT, Poikilocytosis SLIGHT, Anisocytosis SLIGHT, Spherocytes SLIGHT, Sodium Level 136, Potassium Level 3.8, Chloride Level 103, Carbon Dioxide Level 20L, Anion Gap 13, Blood Urea Nitrogen 9, Creatinine 1.02, Estimat Glomerular Filtration Rate > 60, BUN/Creatinine Ratio 9, Glucose Level 104, Calcium Level 9.2, Phosphorus Level 3.2, Magnesium Level 1.7 03/19/21 10:28: Microbiology 03/19/21 Influenza Types A,B Antigen (ALESHA) - Final, Complete Assessment/Plan Assessment/Plan (1) Pneumonia Status: Acute Assessment & Plan: Multifocal infiltrate on x-ray with possible consolidation left lower lung. May need CT for further work-up if not improving as expected. Sars-CoV-2 negative, Flu A and B neg, respiratory viral panel pending. Continue azithromycin and ceftriaxone. Qualifiers: Qualified Codes: J18.9 - Pneumonia, unspecified organism (2) Pulmonary edema Status: Acute Assessment & Plan: Echo with hyperdynamic function and grade 1 diastolic dysfunction. BNP slightly elevated, will give a dose of lasix. Qualifiers: Qualified Codes: J81.0 - Acute pulmonary edema (3) Acute respiratory failure Status: Acute Assessment & Plan: Secondary to pulmonary edema/pneumonia. Requiring 6 lpm supplemental oxygen, declined bipap previously and is currently on vapotherm, but stable. Qualifiers: Qualified Codes: J96.01 - Acute respiratory failure with hypoxia (4) Diabetes mellitus, type 2 Status: Chronic Assessment & Plan: Home glipizide was continued and metformin/Jardiance held. Qualifiers: Qualified Codes: E11.65 - Type 2 diabetes mellitus with hyperglycemia (5) Hepatitis C Status: Chronic Qualifiers: (6) Hypertension Status: Chronic Assessment & Plan: Borderline hypotensive, monitor closely. Qualifiers: Qualified Codes: I10 - Essential (primary) hypertension (7) DVT prophylaxis Status: Acute Assessment & Plan: Enoxaparin JAIME VALLADARES MD March 19, 2021 15:21
[2021-03-19] MEDS ORDERED: FUROSEMIDE 40 MG (LASIX) TAB PO ONE (20:45)
[2021-03-20] MEDS: RT-ALBUTEROL/IPRATROPIUM 3 ML (DUONEB) VIAL INH SCH ×6 (02:20→22:00)
[2021-03-20 03:40] LABS: BASOPHILS # (AUTO) 0.1 10^3/uL (0.0-0.1); BASOPHILS % (AUTO) 0 % (0-10); EOSINOPHILS # (AUTO) 0.2 10^3/uL (0.0-0.3); EOSINOPHILS % (AUTO) 2 % (0-10); HEMATOCRIT 32 % (40-54); HEMOGLOBIN 10.8 g/dL (13.3-17.7); LYMPHOCYTES # (AUTO) 2.2 10^3/uL (1.0-4.0); LYMPHOCYTES % (AUTO) 20 % (12-44); MEAN CORPUSCULAR HEMOGLOBIN 27 pg (25-34); MEAN CORPUSCULAR HGB CONC 33 g/dL (32-36); MEAN CORPUSCULAR VOLUME 81 fL (80-99); MEAN PLATELET VOLUME 9.5 fL (9.0-12.2); MONOCYTES # (AUTO) 1.1 10^3/uL (0.0-1.0); MONOCYTES % (AUTO) 10 % (0-12); NEUTROPHILS # (AUTO) 7.2 10^3/uL (1.8-7.8); NEUTROPHILS % (AUTO) 65 % (42-75); PLATELET COUNT 362 10^3/uL (130-400); WHITE BLOOD COUNT 11.1 10^3/uL (4.3-11.0)
[2021-03-20 04:00] LABS: CHLORIDE 103 MMOL/L (98-107); POTASSIUM 3.8 MMOL/L (3.6-5.0); SODIUM 139 MMOL/L (135-145)
[2021-03-20 04:01] LABS: CALCIUM 9.7 MG/DL (8.5-10.1); GLUCOSE 103 MG/DL (70-105)
[2021-03-20 04:03] LABS: CARBON DIOXIDE 19 MMOL/L (21-32)
[2021-03-20 04:05] LABS: CREATININE SERUM 0.88 MG/DL (0.60-1.30); GFR ESTIMATED > 60; PHOSPHORUS 3.6 MG/DL (2.3-4.7)
[2021-03-20 04:06] LABS: BUN/CREATININE RATIO 11
[2021-03-20 04:08] LABS: MAGNESIUM 1.9 MG/DL (1.6-2.4)
--- NOTE | 2021-03-20 05:49 | Pulmonary Progress Note ---
Subjective Time Seen by a Provider: 05:45 Subjective/Events-last exam Pt appears to be doing better. Sepsis Event Evaluation Height, Weight, BMI Height: 5'11.00" Weight: 210lbs. 0.0oz. 95.962989le; 31.99 BMI Method: Focused Exam Lactate Level 03/18/21 08:35: Lactic Acid Level 1.45 Exam Exam Vital Signs Date Time Temp Pulse Resp B/P (MAP) Pulse Ox O2 Delivery O2 Flow Rate FiO2 03/20/21 04:00 107 20 137/88 (104) 93 Vapotherm 25.00 25.00 03/20/21 04:00 93 Vapotherm 25.00 30 03/20/21 03:32 37.0 112 36 93 Vapotherm 20.00 25.00 03/20/21 03:00 111 20 118/70 (86) 97 Vapotherm 25.00 35.00 03/20/21 02:20 94 Vapotherm 25.00 30 03/20/21 02:00 113 20 118/65 (82) 93 Vapotherm 25.00 35.00 03/20/21 01:00 112 03/20/21 01:00 110 20 120/72 (88) 100 Vapotherm 25.00 35.00 03/20/21 00:11 36.4 Vapotherm 25.00 30.00 03/20/21 00:00 95 Vapotherm 25.00 30 03/20/21 00:00 111 20 141/80 (100) 96 Vapotherm 25.00 35.00 03/19/21 23:00 112 18 125/85 (98) 96 Vapotherm 25.00 35.00 03/19/21 22:00 110 43 121/86 (98) 96 Vapotherm 25.00 35.00 03/19/21 21:47 94 Vapotherm 25.00 40 03/19/21 21:00 110 45 132/83 (99) 94 Vapotherm 25.00 35.00 03/19/21 20:00 37.3 03/19/21 20:00 97 Vapotherm 25.00 35 03/19/21 20:00 110 25 102/88 (93) 96 Vapotherm 25.00 35.00 03/19/21 19:48 39 98 Vapotherm 25.00 35.00 03/19/21 19:21 92 Vapotherm 25.00 40 03/19/21 19:00 110 24 122/83 (96) 96 Vapotherm 25.00 40.00 03/19/21 19:00 110 03/19/21 18:00 108 40 125/76 (92) 96 Vapotherm 25.00 40.00 03/19/21 17:00 112 39 111/66 (81) 95 Vapotherm 25.00 40.00 03/19/21 16:00 Vapotherm 25.00 40 03/19/21 16:00 129 61 115/74 (88) 93 Vapotherm 25.00 40.00 03/19/21 16:00 37.7 03/19/21 14:59 94 Vapotherm 25.00 40 03/19/21 14:00 116 48 116/99 (105) 94 Vapotherm 25.00 40.00 03/19/21 13:00 117 29 92/63 (73) 92 Vapotherm 25.00 40.00 03/19/21 12:42 126 03/19/21 12:00 Vapotherm 25.00 40 03/19/21 12:00 116 43 119/72 (88) 92 Vapotherm 25.00 40.00 03/19/21 11:51 37.0 03/19/21 11:00 116 47 102/70 (81) 94 Vapotherm 25.00 40.00 03/19/21 10:37 92 Vapotherm 25.00 40 03/19/21 10:15 Vapotherm 25.00 40.00 03/19/21 10:00 Vapotherm 20.00 40.00 03/19/21 10:00 123 55 116/83 (94) 82 Vapotherm 20.00 40.00 03/19/21 09:00 116 38 98/70 (79) 85 Vapotherm 20.00 30.00 03/19/21 08:00 113 25 89 Vapotherm 20.00 30.00 03/19/21 08:00 Vapotherm 20.00 30 03/19/21 07:40 36.2 03/19/21 07:00 112 42 91 Vapotherm 20.00 30.00 03/19/21 06:58 114 03/19/21 06:38 112 90 Vapotherm 20.00 30.00 03/19/21 06:35 91 Vapotherm 20.00 30 03/19/21 06:15 97 Vapotherm 25.00 40.00 03/19/21 06:00 111 92/68 (76) 94 Vapotherm 35.00 50.00 I & O 03/20/21 06:59 Intake Total 940 ml Output Total 25 ml Balance 915 ml Height & Weight Height: 5'11.00" Weight: 210lbs. 0.0oz. 95.212833xt; 31.99 BMI Method: General Appearance: Anxious, Chronically ill, Mild Distress HEENT: PERRL/EOMI, Normal ENT Inspection, Pharynx Normal, Moist Mucous Membranes Neck: Full Range of Motion, Normal Inspection, Non Tender Respiratory: Chest Non Tender, Lungs Clear, Normal Breath Sounds, No Accessory Muscle Use, No Respiratory Distress Cardiovascular: Regular Rate, Rhythm, No Edema, No Gallop, No JVD, No Murmur, Normal Peripheral Pulses Capillary Refill: Less Than 3 Seconds Gastrointestinal: soft, distended, tenderness (Mild diffuse) Extremity: Normal Capillary Refill, Normal Inspection, Normal Range of Motion, Non Tender, No Calf Tenderness, No Pedal Edema Neurologic/Psychiatric: Alert, Oriented x3, No Motor/Sensory Deficits, Normal Mood/Affect Skin: Normal Color, Warm/Dry Lymphatic: No Adenopathy Results Lab Laboratory Tests 03/18/21 08:35 03/19/21 03:21 03/20/21 03:30 Assessment/Plan Assessment/Plan Acute respiratory failure -Currently on Vapotherm 50% PNA -Rocephin and Azithromax -Cultures pending -Check RVP and influenza -COVID is negative Pulmonary Edema -Lasix -Check ECHO -IVF currently hep locked Alcoholism -Monitor Tobacco dependance -Education HCV Chronic pain on oxycodone HTN DM Depression BPH VETO LANE DO March 20, 2021 05:49
[2021-03-20] MEDS ORDERED: KCL 20 MEQ TAB (K-DUR) PO ONE (06:00)
[2021-03-20] MEDS ORDERED: FUROSEMIDE 40 MG/4 ML INJ (LASIX) IVP ONE (06:00)
[2021-03-20] MEDS: glipiZIDE 5 MG (GLUCOTROL) TAB PO SCH (06:34)
[2021-03-20] MEDS: CATHETER FLUSH 10 ML SYR IV SCH ×3 (06:34→19:31)
--- NOTE | 2021-03-20 08:00 | Diagnostic Imaging Report ---
INDICATION: Pulmonary edema, pneumonia, follow-up. Dyspnea. TECHNIQUE: Single view chest 2:51 AM. CORRELATION STUDY: 03/19/2021 FINDINGS: Heart size remains enlarged. Vasculature is largely obscured. Scattered asymmetric areas of bilateral pulmonary opacities are again demonstrated. Most pronounced at the lung bases right slightly greater than left. There is also some involvement of the upper lobe distributions as well. IMPRESSION: 1. Extensive multilobe mixed alveolar infiltrates are again demonstrated. Overall without definitive change from prior. Dictated by: Dictated on workstation # [id number]
--- NOTE | 2021-03-20 08:40 | Progress Note ---
Subjective Subjective/Events-last exam Afebrile, still feeling short of breath, but better than yesterday. Focused Exam Lactate Level 03/18/21 08:35: Lactic Acid Level 1.45 Objective Exam Last Set of Vital Signs Vital Signs Date Time Temp Pulse Resp B/P (MAP) Pulse Ox O2 Delivery O2 Flow Rate FiO2 03/20/21 08:32 118/83 (95) 03/20/21 08:00 36.4 114 30 93 Vapotherm 25.00 25.00 03/20/21 07:05 25 Capillary Refill : Less Than 3 Seconds I&O Intake and Output 03/20/21 00:00 Intake Total 1090 ml Output Total 25 ml Balance 1065 ml Intake Oral 1090 ml Output Urine Total 25 ml # Voids 11 General: Alert, No Acute Distress Lungs: Other (decreased air movement throughout) Heart: Other (tachycardic) Neuro: Normal Speech Psych/Mental Status: Mood NL Results/Procedures Lab Laboratory Tests 03/19/21 10:28: 03/20/21 03:30: White Blood Count 11.1H, Red Blood Count 4.01L, Hemoglobin 10.8L, Hematocrit 32L , Mean Corpuscular Volume 81, Mean Corpuscular Hemoglobin 27, Mean Corpuscular Hemoglobin Concent 33, Red Cell Distribution Width 14.9H, Platelet Count 362, Mean Platelet Volume 9.5, Immature Granulocyte % (Auto) 3, Neutrophils (%) (Auto) 65, Lymphocytes (%) (Auto) 20, Monocytes (%) (Auto) 10, Eosinophils (%) (Auto) 2, Basophils (%) (Auto) 0, Neutrophils # (Auto) 7.2, Lymphocytes # (Auto) 2.2, Monocytes # (Auto) 1.1H, Eosinophils # (Auto) 0.2, Basophils # (Auto) 0.1, Immature Granulocyte # (Auto) 0.3H, Sodium Level 139, Potassium Level 3.8, Chloride Level 103, Carbon Dioxide Level 19L, Anion Gap 17H, Blood Urea Nitrogen 10, Creatinine 0.88, Estimat Glomerular Filtration Rate > 60, BUN/Creatinine Ratio 11, Glucose Level 103, Calcium Level 9.7, Phosphorus Level 3.6, Magnesium Level 1.9 Microbiology 03/19/21 Influenza Types A,B Antigen (ALESHA) - Final, Complete Assessment/Plan Assessment/Plan (1) Pneumonia Status: Acute Assessment & Plan: Multifocal infiltrate on x-ray with possible consolidation left lower lung. May need CT for further work-up if not improving as expected. Sars-CoV-2 negative, Flu A and B neg, respiratory viral panel pending. Continue azithromycin and ceftriaxone. 03/20 will add prednisone given history of suspected COPD per patient report. Qualifiers: Qualified Codes: J18.9 - Pneumonia, unspecified organism (2) Pulmonary edema Status: Acute Assessment & Plan: Echo with hyperdynamic function and grade 1 diastolic dysfunction. BNP slightly elevated, will give a dose of lasix. 03/20 some clinical improvement with lasix, will continue daily for now. Qualifiers: Qualified Codes: J81.0 - Acute pulmonary edema (3) Acute respiratory failure Status: Acute Assessment & Plan: Secondary to pulmonary edema/pneumonia. Requiring 6 lpm supplemental oxygen, declined bipap previously and is currently on vapotherm, but stable. 03/20 stable on vapotherm at FiO2 25%, will transfer to floor with telemetry Qualifiers: Qualified Codes: J96.01 - Acute respiratory failure with hypoxia (4) Diabetes mellitus, type 2 Status: Chronic Assessment & Plan: Home glipizide was continued and metformin/Jardiance held. 03/20 sliding scale insulin, diabetic diet Qualifiers: Qualified Codes: E11.65 - Type 2 diabetes mellitus with hyperglycemia (5) Hepatitis C Status: Chronic Assessment & Plan: per patient, history of treatment with follow up und etectable viral load. Qualifiers: (6) Hypertension Status: Chronic Assessment & Plan: Borderline hypotensive, monitor closely. Qualifiers: Qualified Codes: I10 - Essential (primary) hypertension (7) DVT prophylaxis Status: Acute Assessment & Plan: Enoxaparin JAIME VALLADARES MD March 20, 2021 08:40
[2021-03-20] MEDS: FUROSEMIDE 40 MG (LASIX) TAB PO SCH (08:50)
[2021-03-20] MEDS: predniSONE 20 MG TAB PO SCH (08:50)
[2021-03-20] MEDS: lisINopril 10 MG (PRINIVIL) TABLET PO SCH (08:50)
[2021-03-20] MEDS: SIMvastatin 10 MG (ZOCOR) TAB PO SCH (08:50)
[2021-03-20] MEDS: PANTOPRAZOLE 20 MG TABLET (PROTONIX) PO SCH (08:51)
[2021-03-20] MEDS: ASPIRIN E.C. 81 MG (ECOTRIN) TAB PO SCH (08:51)
[2021-03-20] MEDS: amLODIPine 5 MG (NORVASC) TAB PO SCH (08:51)
[2021-03-20] MEDS: SERTRALINE 50 MG (ZOLOFT) TABLET PO SCH (08:51)
[2021-03-20] MEDS: AZITHROMYCIN 250 MG TAB (ZITHROMAX) PO SCH (08:51)
[2021-03-20] MEDS: QUEtiapine 25 MG (SEROquel) TAB IMMEDIATE RELEASE PO SCH ×2 (08:51→19:31)
[2021-03-20] MEDS: cefTRIAXone 1,000 MG/SWFI 10 ML IV PUSH IV SCH ×2 (12:32)
[2021-03-20] MEDS: inSUlin ASPART (NovoLOG) 1 UNIT/0.01 ML (CHARGE PER UNIT) SC SCH ×4 (12:33→21:32)
[2021-03-20] MEDS: ENOXAPARIN 40 MG/0.4 ML (LOVENOX) SYR SC SCH (12:33)
[2021-03-21] MEDS: RT-ALBUTEROL/IPRATROPIUM 3 ML (DUONEB) VIAL INH SCH ×6 (02:03→21:30)
[2021-03-21 06:20] LABS: HEMATOCRIT 33 % (40-54); HEMOGLOBIN 11.1 g/dL (13.3-17.7); MEAN CORPUSCULAR HEMOGLOBIN 27 pg (25-34); MEAN CORPUSCULAR HGB CONC 34 g/dL (32-36); MEAN CORPUSCULAR VOLUME 80 fL (80-99); MEAN PLATELET VOLUME 9.6 fL (9.0-12.2); PLATELET COUNT 455 10^3/uL (130-400); WHITE BLOOD COUNT 9.8 10^3/uL (4.3-11.0)
[2021-03-21] MEDS: CATHETER FLUSH 10 ML SYR IV SCH ×3 (06:22→22:55)
[2021-03-21] MEDS: inSUlin ASPART (NovoLOG) 1 UNIT/0.01 ML (CHARGE PER UNIT) SC SCH ×4 (06:22→21:33)
[2021-03-21] MEDS: glipiZIDE 5 MG (GLUCOTROL) TAB PO SCH (06:23)
[2021-03-21 06:34] LABS: ALBUMIN 3.4 GM/DL (3.2-4.5)
[2021-03-21 06:35] LABS: CHLORIDE 103 MMOL/L (98-107); POTASSIUM 3.7 MMOL/L (3.6-5.0); SODIUM 138 MMOL/L (135-145)
[2021-03-21 06:36] LABS: CALCIUM 10.1 MG/DL (8.5-10.1)
[2021-03-21 06:37] LABS: GLUCOSE 121 MG/DL (70-105); TOTAL PROTEIN 7.6 GM/DL (6.4-8.2)
[2021-03-21 06:38] LABS: CARBON DIOXIDE 23 MMOL/L (21-32)
[2021-03-21 06:39] LABS: BILIRUBIN,TOTAL 0.4 MG/DL (0.1-1.0)
[2021-03-21 06:40] LABS: ALKALINE PHOSPHATASE 99 U/L (40-136)
[2021-03-21 06:41] LABS: CREATININE SERUM 0.81 MG/DL (0.60-1.30); GFR ESTIMATED > 60
[2021-03-21 06:42] LABS: BUN/CREATININE RATIO 21
[2021-03-21 06:43] LABS: ALANINE AMINOTRANSFERASE 79 U/L (0-55)
[2021-03-21] MEDS: QUEtiapine 25 MG (SEROquel) TAB IMMEDIATE RELEASE PO SCH ×2 (09:38→21:33)
[2021-03-21] MEDS: amLODIPine 5 MG (NORVASC) TAB PO SCH (09:39)
[2021-03-21] MEDS: ASPIRIN E.C. 81 MG (ECOTRIN) TAB PO SCH (09:39)
[2021-03-21] MEDS: predniSONE 20 MG TAB PO SCH (09:39)
[2021-03-21] MEDS: PANTOPRAZOLE 20 MG TABLET (PROTONIX) PO SCH (09:40)
[2021-03-21] MEDS: lisINopril 10 MG (PRINIVIL) TABLET PO SCH (09:40)
[2021-03-21] MEDS: SIMvastatin 10 MG (ZOCOR) TAB PO SCH (09:44)
[2021-03-21] MEDS: FUROSEMIDE 40 MG (LASIX) TAB PO SCH (09:44)
[2021-03-21] MEDS: cefTRIAXone 1,000 MG/SWFI 10 ML IV PUSH IV SCH ×2 (09:45)
[2021-03-21] MEDS: SERTRALINE 50 MG (ZOLOFT) TABLET PO SCH (09:45)
[2021-03-21] MEDS: AZITHROMYCIN 250 MG TAB (ZITHROMAX) PO SCH (09:45)
[2021-03-21] MEDS: ENOXAPARIN 40 MG/0.4 ML (LOVENOX) SYR SC SCH (09:45)
[2021-03-21 11:14] LABS: PARAINFLU 1 PCR Not Detected (Not Detected); PARAINFLU 2 PCR Not Detected (Not Detected); RSV PCR TEST Not Detected (Not Detected)
--- NOTE | 2021-03-21 13:45 | Progress Note ---
Subjective Subjective/Events-last exam Feeling much better, is on nasal cannula this morning. He states he does not want to go home with oxygen. Objective Exam Last Set of Vital Signs Vital Signs Date Time Temp Pulse Resp B/P (MAP) Pulse Ox O2 Delivery O2 Flow Rate FiO2 03/21/21 12:34 99 03/21/21 12:00 35.9 20 108/68 (81) 97 High Flow N/C 4.00 3.00 03/21/21 07:29 30 Capillary Refill : Less Than 3 Seconds I&O Intake and Output 03/20/21 23:59 Intake Total 1370 ml Balance 1370 ml Intake Oral 1370 ml # Voids 8 General: Alert, No Acute Distress Lungs: Clear to Auscultation, Normal Air Movement Heart: Regular Rate, No Murmurs Abdomen: Normal Bowel Sounds, Other (distended) Extremities: No Edema Psych/Mental Status: Mood NL Results/Procedures Lab Laboratory Tests 03/20/21 17:02: Glucometer 200H 03/20/21 21:06: Glucometer 204H 03/20/21 21:08: Glucometer 215H 03/21/21 06:10: Glucometer 101 03/21/21 06:15: White Blood Count 9.8, Red Blood Count 4.12L, Hemoglobin 11.1L, Hematocrit 33L, Mean Corpuscular Volume 80, Mean Corpuscular Hemoglobin 27, Mean Corpuscular Hemoglobin Concent 34, Red Cell Distribution Width 14.6H, Platelet Count 455H, Mean Platelet Volume 9.6, Sodium Level 138, Potassium Level 3.7, Chloride Level 103, Carbon Dioxide Level 23, Anion Gap 12, Blood Urea Nitrogen 17, Creatinine 0.81, Estimat Glomerular Filtration Rate > 60, BUN/Creatinine Ratio 21, Glucose Level 121H, Calcium Level 10.1, Corrected Calcium 10.6H, Total Bilirubin 0.4, Aspartate Amino Transf (AST/SGOT) 104H, Alanine Aminotransferase (ALT/SGPT) 79H, Alkaline Phosphatase 99, Total Protein 7.6, Albumin 3.4 03/21/21 10:57: Glucometer 155H Microbiology 03/19/21 Influenza Types A,B Antigen (ALESHA) - Final, Complete Assessment/Plan Assessment/Plan (1) Pneumonia Status: Acute Assessment & Plan: Multifocal infiltrate on x-ray with possible consolidation left lower lung. May need CT for further work-up if not improving as expected. Sars-CoV-2 negative, Flu A and B neg, respiratory viral panel pending. Continue azithromycin and ceftriaxone. 03/20 will add prednisone given history of suspected COPD per patient report. 03/21 significantly improved, continue prednisone burst and wean oxygen as tolerated Qualifiers: Qualified Codes: J18.9 - Pneumonia, unspecified organism (2) Pulmonary edema Status: Acute Assessment & Plan: Echo with hyperdynamic function and grade 1 diastolic dysfunction. BNP slightly elevated, will give a dose of lasix. 03/20 some clinical improvement with lasix, will continue daily for now. Qualifiers: Qualified Codes: J81.0 - Acute pulmonary edema (3) Acute respiratory failure Status: Acute Assessment & Plan: Secondary to pulmonary edema/pneumonia. Requiring 6 lpm supplemental oxygen, declined bipap previously and is currently on vapotherm, but stable. 03/20 stable on vapotherm at FiO2 25%, will transfer to floor with telemetry 03/21 continued improvement, on 2 lpm nasal cannula at time of exam Qualifiers: Qualified Codes: J96.01 - Acute respiratory failure with hypoxia (4) Diabetes mellitus, type 2 Status: Chronic Assessment & Plan: Home glipizide was continued and metformin/Jardiance held. 03/20 sliding scale insulin, diabetic diet Qualifiers: Qualified Codes: E11.65 - Type 2 diabetes mellitus with hyperglycemia (5) Hepatitis C Status: Chronic Assessment & Plan: per patient, history of treatment with follow up undetectable viral load. Qualifiers: (6) Hypertension Status: Chronic Assessment & Plan: Borderline hypotensive, monitor closely. Qualifiers: Qualified Codes: I10 - Essential (primary) hypertension (7) DVT prophylaxis Status: Acute Assessment & Plan: Enoxaparin JAIME VALLADARES MD March 21, 2021 13:45
[2021-03-21 15:42] VITALS: BP 108/68
[2021-03-22] MEDS: RT-ALBUTEROL/IPRATROPIUM 3 ML (DUONEB) VIAL INH SCH ×6 (02:24→22:21)
[2021-03-22 05:28] LABS: HEMATOCRIT 33 % (40-54); MEAN CORPUSCULAR HEMOGLOBIN 27 pg (25-34); MEAN CORPUSCULAR HGB CONC 33 g/dL (32-36); MEAN CORPUSCULAR VOLUME 81 fL (80-99); MEAN PLATELET VOLUME 9.4 fL (9.0-12.2); PLATELET COUNT 535 10^3/uL (130-400)
[2021-03-22 05:39] LABS: ALBUMIN 3.4 GM/DL (3.2-4.5); CHLORIDE 102 MMOL/L (98-107); POTASSIUM 3.7 MMOL/L (3.6-5.0); SODIUM 137 MMOL/L (135-145)
[2021-03-22 05:41] LABS: CALCIUM 9.7 MG/DL (8.5-10.1)
[2021-03-22 05:42] LABS: GLUCOSE 122 MG/DL (70-105); TOTAL PROTEIN 7.5 GM/DL (6.4-8.2)
[2021-03-22 05:43] LABS: CARBON DIOXIDE 22 MMOL/L (21-32)
[2021-03-22] MEDS: inSUlin ASPART (NovoLOG) 1 UNIT/0.01 ML (CHARGE PER UNIT) SC SCH ×4 (05:43→20:54)
[2021-03-22] MEDS: CATHETER FLUSH 10 ML SYR IV SCH ×3 (05:43→20:42)
[2021-03-22 05:44] LABS: BILIRUBIN,TOTAL 0.3 MG/DL (0.1-1.0)
[2021-03-22 05:45] LABS: ALKALINE PHOSPHATASE 92 U/L (40-136); CREATININE SERUM 0.86 MG/DL (0.60-1.30); GFR ESTIMATED > 60
[2021-03-22 05:46] LABS: BUN/CREATININE RATIO 20
[2021-03-22 05:48] LABS: ALANINE AMINOTRANSFERASE 140 U/L (0-55)
[2021-03-22] MEDS: glipiZIDE 5 MG (GLUCOTROL) TAB PO SCH (06:01)
[2021-03-22] MEDS: ASPIRIN E.C. 81 MG (ECOTRIN) TAB PO SCH (09:04)
[2021-03-22] MEDS: AZITHROMYCIN 250 MG TAB (ZITHROMAX) PO SCH (09:04)
[2021-03-22] MEDS: predniSONE 20 MG TAB PO SCH (09:04)
[2021-03-22] MEDS: lisINopril 10 MG (PRINIVIL) TABLET PO SCH (09:04)
[2021-03-22] MEDS: amLODIPine 5 MG (NORVASC) TAB PO SCH (09:04)
[2021-03-22] MEDS: SIMvastatin 10 MG (ZOCOR) TAB PO SCH (09:04)
[2021-03-22] MEDS: FUROSEMIDE 40 MG (LASIX) TAB PO SCH (09:04)
[2021-03-22] MEDS: PANTOPRAZOLE 20 MG TABLET (PROTONIX) PO SCH (09:04)
[2021-03-22] MEDS: SERTRALINE 50 MG (ZOLOFT) TABLET PO SCH (09:04)
[2021-03-22] MEDS: QUEtiapine 25 MG (SEROquel) TAB IMMEDIATE RELEASE PO SCH ×2 (09:04→20:42)
--- NOTE | 2021-03-22 13:01 | Progress Note ---
Subjective Subjective/Events-last exam Doing pretty well overall, but gets short of breath when he tries to go to sleep. Objective Exam Last Set of Vital Signs Vital Signs Date Time Temp Pulse Resp B/P (MAP) Pulse Ox O2 Delivery O2 Flow Rate FiO2 03/22/21 10:32 92 Room Air 03/22/21 09:18 36.6 84 18 114/68 (83) 03/22/21 08:30 03/21/21 15:42 28 Capillary Refill : Less Than 3 Seconds I&O Intake and Output 03/22/21 00:00 Intake Total 2340 ml Balance 2340 ml Intake Oral 2340 ml # Voids 9 General: Alert, No Acute Distress Lungs: Clear to Auscultation, Normal Air Movement Heart: Regular Rate Abdomen: Other (distended) Extremities: No Edema Psych/Mental Status: Mood NL Results/Procedures Lab Laboratory Tests 03/21/21 16:32: Glucometer 170H 03/21/21 19:51: Glucometer 184H 03/22/21 05:20: White Blood Count 10.0, Red Blood Count 4.10L, Hemoglobin 11.0L, Hematocrit 33L, Mean Corpuscular Volume 81, Mean Corpuscular Hemoglobin 27, Mean Corpuscular Hemoglobin Concent 33, Red Cell Distribution Width 14.8H, Platelet Count 535H, Mean Platelet Volume 9.4, Sodium Level 137, Potassium Level 3.7, Chloride Level 102, Carbon Dioxide Level 22, Anion Gap 13, Blood Urea Nitrogen 17, Creatinine 0.86, Estimat Glomerular Filtration Rate > 60, BUN/Creatinine Ratio 20, Glucose Level 122H, Calcium Level 9.7, Corrected Calcium 10.2H, Total Bilirubin 0.3, Aspartate Amino Transf (AST/SGOT) 154H, Alanine Aminotransferase (ALT/SGPT) 140H , Alkaline Phosphatase 92, Total Protein 7.5, Albumin 3.4 03/22/21 10:51: Glucometer 192H Microbiology 03/19/21 Influenza Types A,B Antigen (ALESHA) - Final, Complete Assessment/Plan Assessment/Plan (1) Pneumonia Status: Acute Assessment & Plan: Multifocal infiltrate on x-ray with possible consolidation left lower lung. May need CT for further work-up if not improving as expected. Sars-CoV-2 negative, Flu A and B neg, respiratory viral panel pending. Continue azithromycin and ceftriaxone. 03/20 will add prednisone given history of suspected COPD per patient report. 03/21 significantly improved, continue prednisone burst and wean oxygen as tolerated 03/22 will do overnight oxygen study to see if he needs home O2 for nighttime use, is not requiring during the day today Qualifiers: Qualified Codes: J18.9 - Pneumonia, unspecified organism (2) Pulmonary edema Status: Acute Assessment & Plan: Echo with hyperdynamic function and grade 1 diastolic dysfunction. BNP slightly elevated, will give a dose of lasix. 03/20 some clinical improvement with lasix, will continue daily for now. Qualifiers: Qualified Codes: J81.0 - Acute pulmonary edema (3) Acute respiratory failure Status: Resolved Assessment & Plan: Secondary to pulmonary edema/pneumonia. Requiring 6 lpm supplemental oxygen, declined bipap previously and is currently on vapotherm, but stable. 03/20 stable on vapotherm at FiO2 25%, will transfer to floor with telemetry 03/21 continued improvement, on 2 lpm nasal cannula at time of exam 03/22 tolerating room air most of the time while awake Qualifiers: Qualified Codes: J96.01 - Acute respiratory failure with hypoxia (4) Diabetes mellitus, type 2 Status: Chronic Assessment & Plan: Home glipizide was continued and metformin/Jardiance held. 03/20 sliding scale insulin, diabetic diet Qualifiers: Qualified Codes: E11.65 - Type 2 diabetes mellitus with hyperglycemia (5) Hepatitis C Status: Chronic Assessment & Plan: per patient, history of treatment with follow up undetectable viral load. Qualifiers: (6) Hypertension Status: Chronic Assessment & Plan: Borderline hypotensive, monitor closely. Qualifiers: Qualified Codes: I10 - Essential (primary) hypertension (7) DVT prophylaxis Status: Acute Assessment & Plan: Enoxaparin JAIME VALLADARES MD March 22, 2021 13:01
[2021-03-22] MEDS ORDERED: cefTRIAXone 1,000 MG IV (ROCEPHIN) VIAL ONE (13:49)
[2021-03-22] MEDS: ENOXAPARIN 40 MG/0.4 ML (LOVENOX) SYR SC SCH (14:16)
[2021-03-22] MEDS: cefTRIAXone 1,000 MG/SWFI 10 ML IV PUSH IV SCH ×2 (14:16)
[2021-03-23] MEDS: RT-ALBUTEROL/IPRATROPIUM 3 ML (DUONEB) VIAL INH SCH ×3 (02:38→10:48)
[2021-03-23] MEDS: inSUlin ASPART (NovoLOG) 1 UNIT/0.01 ML (CHARGE PER UNIT) SC SCH ×2 (05:31→11:20)
[2021-03-23] MEDS: glipiZIDE 5 MG (GLUCOTROL) TAB PO SCH (05:31)
[2021-03-23] MEDS: CATHETER FLUSH 10 ML SYR IV SCH ×2 (05:32→13:16)
[2021-03-23 05:38] LABS: HEMATOCRIT 35 % (40-54); HEMOGLOBIN 11.6 g/dL (13.3-17.7); MEAN CORPUSCULAR HEMOGLOBIN 27 pg (25-34); MEAN CORPUSCULAR HGB CONC 33 g/dL (32-36); MEAN CORPUSCULAR VOLUME 81 fL (80-99); MEAN PLATELET VOLUME 9.4 fL (9.0-12.2); PLATELET COUNT 617 10^3/uL (130-400); WHITE BLOOD COUNT 11.4 10^3/uL (4.3-11.0)
[2021-03-23 06:01] LABS: ALBUMIN 3.5 GM/DL (3.2-4.5); CHLORIDE 103 MMOL/L (98-107); POTASSIUM 3.8 MMOL/L (3.6-5.0); SODIUM 137 MMOL/L (135-145)
[2021-03-23 06:03] LABS: CALCIUM 9.7 MG/DL (8.5-10.1)
[2021-03-23 06:04] LABS: GLUCOSE 111 MG/DL (70-105); TOTAL PROTEIN 7.3 GM/DL (6.4-8.2)
[2021-03-23 06:05] LABS: CARBON DIOXIDE 21 MMOL/L (21-32)
[2021-03-23 06:06] LABS: BILIRUBIN,TOTAL 0.2 MG/DL (0.1-1.0)
[2021-03-23 06:07] LABS: ALKALINE PHOSPHATASE 96 U/L (40-136)
[2021-03-23 06:08] LABS: CREATININE SERUM 0.77 MG/DL (0.60-1.30); GFR ESTIMATED > 60
[2021-03-23 06:09] LABS: BUN/CREATININE RATIO 22
[2021-03-23 06:10] LABS: ALANINE AMINOTRANSFERASE 150 U/L (0-55)
[2021-03-23] MEDS: ASPIRIN E.C. 81 MG (ECOTRIN) TAB PO SCH (09:25)
[2021-03-23] MEDS: QUEtiapine 25 MG (SEROquel) TAB IMMEDIATE RELEASE PO SCH (09:25)
[2021-03-23] MEDS: SERTRALINE 50 MG (ZOLOFT) TABLET PO SCH (09:26)
[2021-03-23] MEDS: FUROSEMIDE 40 MG (LASIX) TAB PO SCH (09:26)
[2021-03-23] MEDS: lisINopril 10 MG (PRINIVIL) TABLET PO SCH (09:26)
[2021-03-23] MEDS: PANTOPRAZOLE 20 MG TABLET (PROTONIX) PO SCH (09:26)
[2021-03-23] MEDS: predniSONE 20 MG TAB PO SCH (09:26)
[2021-03-23] MEDS: amLODIPine 5 MG (NORVASC) TAB PO SCH (09:26)
[2021-03-23] MEDS: SIMvastatin 10 MG (ZOCOR) TAB PO SCH (09:27)
[2021-03-23] MEDS ORDERED: RT-ALBUINH IH (10:53)
[2021-03-23] MEDS ORDERED: PRD20T PO (10:53)
--- NOTE | 2021-03-23 11:01 | Discharge Summary ---
Discharge Summary Hospital Course Problems/Diagnosis: (1) Pneumonia Status: Acute Assessment & Plan: Multifocal infiltrate on x-ray with possible consolidation left lower lung. May need CT for further work-up if not improving as expected. Sars-CoV-2 negative, Flu A and B neg, respiratory viral panel pending. Continue azithromycin and ceftriaxone. 03/20 will add prednisone given history of suspected COPD per patient report. 03/21 significantly improved, continue prednisone burst and wean oxygen as tolerated 03/22 will do overnight oxygen study to see if he needs home O2 for nighttime use, is not requiring during the day today 03/23 maintaining oxygenation well on room air, 5 days of ceftriaxone and azithromycin completed. Qualifiers: Qualified Codes: J18.9 - Pneumonia, unspecified organism (2) Pulmonary edema Status: Resolved Resolution Date/Time: 03/23/21 @ 10:55 Assessment & Plan: Echo with hyperdynamic function and grade 1 diastolic dysfunction. BNP slightly elevated, will give a dose of lasix. 03/20 some clinical improvement with lasix, will continue daily for now. 03/22 did not continue lasix on d/c, may need to resume pending clinical course. Qualifiers: Qualified Codes: J81.0 - Acute pulmonary edema (3) Acute respiratory failure Status: Resolved Resolution Date/Time: 03/22/21 @ 13:01 Assessment & Plan: Secondary to pulmonary edema/pneumonia. Requiring 6 lpm supplemental oxygen, declined bipap previously and is currently on vapotherm, but stable. 03/20 stable on vapotherm at FiO2 25%, will transfer to floor with telemetry 03/21 continued improvement, on 2 lpm nasal cannula at time of exam 03/22 tolerating room air most of the time while awake 03/23 no desaturation even with exertion on day of d/c Qualifiers: Qualified Codes: J96.01 - Acute respiratory failure with hypoxia (4) Diabetes mellitus, type 2 Status: Chronic Assessment & Plan: Home glipizide was continued and metformin/Jardiance held. 03/20 sliding scale insulin, diabetic diet Qualifiers: Qualified Codes: E11.65 - Type 2 diabetes mellitus with hyperglycemia (5) Hepatitis C Status: Chronic Assessment & Plan: per patient, history of treatment with follow up undetectable viral load. Qualifiers: (6) Hypertension Status: Chronic Assessment & Plan: Continued home medications. Qualifiers: Qualified Codes: I10 - Essential (primary) hypertension Hospital Course Date of Admission: March 18, 2021 at 11:00 Admission Diagnosis : Family Physician/Provider: Slava Amaya Aprn Date of Discharge: 03/23/21 Discharge Diagnosis: see problem list Hospital Course: See problem list Labs and Pending Lab Test: Laboratory Tests 03/22/21 16:33: Glucometer 179H 03/22/21 20:51: Glucometer 165H 03/23/21 05:19: Glucometer 105 03/23/21 05:20: White Blood Count 11.4H, Red Blood Count 4.35, Hemoglobin 11.6L, Hematocrit 35L, Mean Corpuscular Volume 81, Mean Corpuscular Hemoglobin 27, Mean Corpuscular Hemoglobin Concent 33, Red Cell Distribution Width 14.6H, Platelet Count 617H, Mean Platelet Volume 9.4, Sodium Level 137, Potassium Level 3.8, Chloride Level 103, Carbon Dioxide Level 21, Anion Gap 13, Blood Urea Nitrogen 17, Creatinine 0.77, Estimat Glomerular Filtration Rate > 60, BUN/Creatinine Ratio 22, Glucose Level 111H, Calcium Level 9.7, Corrected Calcium 10.1, Total Bilirubin 0.2, Aspartate Amino Transf (AST/SGOT) 96H, Alanine Aminotransferase (ALT/SGPT) 150H, Alkaline Phosphatase 96, Total Protein 7.3, Albumin 3.5 Microbiology 03/19/21 Influenza Types A,B Antigen (ALESHA) - Final, Complete Home Meds Active Proair Hfa (Albuterol Sulfate) 1 Puff Puff 2 Puff IH Q4H 1 PUFF = 90 MCG Prednisone 20 Mg Tab 40 Mg PO DAILY 2 Days Reported Aspirin EC (Aspirin) 81 Mg Tablet.dr 81 Mg PO DAILY Fenofibrate (Fenofibrate Nanocrystallized) 48 Mg Tablet 48 Mg PO DAILY Quetiapine Fumarate 100 Mg Tablet 100 Mg PO BID Omeprazole 20 Mg Capsule.dr 20 Mg PO DAILY Amlodipine Besylate 5 Mg Tablet 5 Mg PO DAILY Lisinopril 40 Mg Tablet 40 Mg PO DAILY Neurontin (Gabapentin) 300 Mg Capsule 300 Mg PO DAILY Synjardy Xr 10-1,000 mg Tablet (Empagliflozin/Metformin HCl) 1 Each Tab.bp.24h 1 Ea PO DAILY Tizanidine HCl 4 Mg Tablet 4 Mg PO TID PRN Glipizide 10 Mg Tablet 10 Mg PO DAILY Sertraline HCl 25 Mg Tablet 25 Mg PO DAILY Oxycodone HCl 10 Mg Tablet 10 Mg PO TID PRN Simvastatin 10 Mg Tablet 10 Mg PO DAILY Assessment/Pt DC Instructions Follow up with Colin Amaya on March 28 at 9 am. Discharge Diet: ADA Diet Activity as Tolerated: Yes Discharge Physical Examination Allergies: Coded Allergies: No Known Drug Allergies (Unverified , 05/05/17) General Appearance: No Apparent Distress, WD/WN Respiratory: Lungs Clear, Normal Breath Sounds Cardiovascular: Regular Rate, Rhythm, No Murmur Gastrointestinal: Other (distended) Extremity: No Pedal Edema Skin: Normal Color, Warm/Dry Neurologic/Psychiatric: Alert, No Motor/Sensory Deficits Copy Copies To 1: SIMA Chavira BETHANY N MD March 23, 2021 11:00
[2021-03-23] MEDS: ENOXAPARIN 40 MG/0.4 ML (LOVENOX) SYR SC SCH (13:11)
== END 2021-03-23 14:25 | disposition home or self-care (01) | DRG 193 ==
LOC: EDUNIT# 07:34 → ER FS 07:36 → ICU 11:00 → 4TH 03-20 10:27
PROVIDERS: ADMIT Internal Medicine; ATTEND Family Medicine
PROC: 5A09357 Assistance with Respiratory Ventilation, Less than 24 Consecutive Hours, Continuous Positive Airway Pressure (ICD-10-PCS; principal; 2021-03-18)
DX: J18.9 Pneumonia, unspecified organism (principal); J81.0 Acute pulmonary edema; J96.01 Acute respiratory failure with hypoxia; Z79.84 Long term (current) use of oral hypoglycemic drugs; Z79.899 Other long term (current) drug therapy; F17.210 Nicotine dependence, cigarettes, uncomplicated; J43.9 Emphysema, unspecified; E78.00 Pure hypercholesterolemia, unspecified; I10 Essential (primary) hypertension; E11.40 Type 2 diabetes mellitus with diabetic neuropathy, unspecified; M19.90 Unspecified osteoarthritis, unspecified site; Z20.822 Contact with and (suspected) exposure to COVID-19; G89.29 Other chronic pain; F32.9 Major depressive disorder, single episode, unspecified; N40.0 Benign prostatic hyperplasia without lower urinary tract symptoms; F10.20 Alcohol dependence, uncomplicated; B19.20 Unspecified viral hepatitis C without hepatic coma; E11.65 Type 2 diabetes mellitus with hyperglycemia
CPT/HCPCS: 36410; 36415; 71045; 71046; 76937; 80048; 80053; 82805; 82947; 83605; 83735; 83880; 84100; 84484; 85007; 85025; 85027; 85610; 86141; 87631; 87636; 87804; 93005; 93306; 94640; 94660; 94664; 94760; 94761; 96374

== ENCOUNTER 2021-12-22 15:55 | Emergency (ER) | payer OTHER ==
[~2021-12-22] VITALS: Ht 180 cm; Wt 115.0 kg
[~2021-12-22 15:55] MED LIST changes: +AMLO-250 PO; +AMLO5TAB4 PO; +ASPI-1238 PO; +EMPA1TAB15 PO; +EMPA1TAB21 PO; +FENO48TA11 PO; +GABA300C PO; +GLIP10TA13 PO; +LISI40TA9 PO; +OMEP20CA18 PO; +OMEP20TA7 PO; +OXYC10TA7 PO; +PRD20T PO; +QUET100T33 PO; -QUET25TA34 PO; +QUET25TA35 PO; +RT-ALBUINH IH; +SERT-412 PO; +TIZA-186 PO
[2021-12-22] MEDS ORDERED: ORPHENADRINE 60 MG/2 ML (NORFLEX) AMP (ED ONLY) IM STA (16:06)
[2021-12-22] MEDS ORDERED: KETOROLAC 60 MG/2 ML VIAL IM STA (16:06)
[2021-12-22 16:07] VITALS: BP 164/94
--- NOTE | 2021-12-22 16:19 | ED Neck-Back Pain/Injury ---
General Chief Complaint: Head/Cervical Problems Stated Complaint: NECK PAIN Source of Information: Patient History of Present Illness Date Seen by Provider: Dec 22, 2021 Time Seen by Provider: 15:58 Initial Comments 61-year-old male presenting with complaints of left-sided neck pain. He states this is been going on for a week and started when he woke up 1 morning. He has had something similar and was told it was a pinched nerve. However it is never been as severe or lasted as long as this week. He did see his primary provider yesterday and was prescribed a muscle relaxer similar to the Flexeril. He sta rosalinda that it was not helping and he has not slept for the last 2 days because of his pain. He came to the emergency department today because he was still having severe pain. His pain is all on the left side and worse with movement. He denies any injury to cause the pain to start and just states he woke up with pain about a week ago. Location: C-Spine Timing/Duration: 1 Week Severity: Severe Pain/Injury Location: Neck Method of Injury: Unknown Modifying Factors: Improves With Cold Therapy Associated Symptoms: muscle spasms; No fever, No weakness, No numbness in legs/feet, No tingling in legs/feet, No sensory/motor loss, No lower back pain, No loss of bladder control, No loss of bowel control Allergies and Home Medications Allergies Coded Allergies: No Known Drug Allergies (Unverified , 05/05/17) Patient Home Medication List Home Medication List Reviewed: Yes Albuterol Sulfate (Proair Hfa) 1 Puff Puff, 2 PUFF IH Q4H Prescribed by: JAIME VALLADARES on 03/23/21 1053 Amlodipine Besylate (Amlodipine Besylate) 5 Mg Tablet, 5 MG PO DAILY, (Reported) Entered as Reported by: JAZ BISHOP on 03/19/21 0909 Aspirin (Aspirin EC) 81 Mg Tablet.dr, 81 MG PO DAILY, (Reported) Entered as Reported by: JAZ BISHOP on 03/19/21 0909 Diazepam (Diazepam) 5 Mg Tablet, 5 MG PO BID PRN for neck pain/muscle spasms Prescribed by: ARIANNA OCOL on 12/22/21 1654 Empagliflozin/Metformin HCl (Synjardy Xr 10-1,000 mg Tablet) 1 Each Tab.bp.24h, 1 EA PO DAILY, (Reported) Entered as Reported by: JAZ BISHOP on 03/19/21908 Fenofibrate Nanocrystallized (Fenofibrate) 48 Mg Tablet, 48 MG PO DAILY, (Reported) Entered as Reported by: JAZ BISHOP on 03/19/21908 Gabapentin (Neurontin) 300 Mg Capsule, 300 MG PO DAILY, (Reported) Entered as Reported by: JAZ BISHOP on 03/19/21908 Glipizide (Glipizide) 10 Mg Tablet, 10 MG PO DAILY, (Reported) Entered as Reported by: ROSEMARIE DESAI on 03/18/211947 Lisinopril (Lisinopril) 40 Mg Tablet, 40 MG PO DAILY, (Reported) Entered as Reported by: JAZ BISHOP on 03/19/21908 Omeprazole (Omeprazole) 20 Mg Capsule.dr, 20 MG PO DAILY, (Reported) Entered as Reported by: JAZ BISHOP on 03/19/21908 Oxycodone HCl (Oxycodone HCl) 10 Mg Tablet, 10 MG PO TID PRN for PAIN-MODERATE (5-7), (Reported) Entered as Reported by: RAVEN CELIS on 03/18/21 1714 Prednisone (Prednisone) 20 Mg Tab, 40 MG PO DAILY Prescribed by: JAIME VALLADARES on 03/23/21 1053 Prednisone (Prednisone) 20 Mg Tab, 40 MG PO DAILY Prescribed by: ARIANNA COOL on 12/22/21 1653 Quetiapine Fumarate (Quetiapine Fumarate) 100 Mg Tablet, 100 MG PO BID, (Reported) Entered as Reported by: JAZ BISHOP on 03/19/21908 Sertraline HCl (Sertraline HCl) 25 Mg Tablet, 25 MG PO DAILY, (Reported) Entered as Reported by: ROSEMARIE DESAI on 03/18/211947 Simvastatin (Simvastatin) 10 Mg Tablet, 10 MG PO DAILY, (Reported) Entered as Reported by: RUSTY ZUÑIGA on 05/05/17 1049 Tizanidine HCl (Tizanidine HCl) 4 Mg Tablet, 4 MG PO TID PRN for MUSCLE SPASMS, (Reported) Entered as Reported by: JAZ BISHOP on 5/24/21 0909 Review of Systems Constitutional: No chills, No fever EENTM: no symptoms reported Respiratory: no symptoms reported Cardiovascular: no symptoms reported Gastrointestinal: no symptoms reported Genitourinary: no symptoms reported Musculoskeletal: see HPI Skin: No change in color, No rash Psychiatric/Neurological: Anxiety Past Jotouud-Oopkgn-Awvdkl Hx Patient Social History Tobacco Use?: Yes Tobacco type used: Cigarettes Substance use?: No Alcohol Use?: Yes Alcohol type: Beer Alcohol Frequency: Daily Seasonal Allergies Seasonal Allergies: No Past Medical History Surgeries: Yes (right ing hernia) Respiratory: Yes COPD, Emphysema Cardiac: Yes High Cholesterol, Hypertension Neurological: Yes (seizure one time related to a med) Neuropathy Reproductive Disorders: No Genitourinary: No Kidney Stones Gastrointestinal: Yes (Enlarged Liver) Hepatitis Musculoskeletal: Yes Arthritis Endocrine: Yes Diabetes, Non-Insulin dep Cancer: No Psychosocial: No Integumentary: Yes (STATES HAD A WOUND "STAPH INFECTION" 2007, DENIES MRSA, NO CURRENT WOUNDS) Blood Disorders: No Physical Exam Vital Signs Vital Signs - First Documented 12/22/21 16:07 Temp 37.3 Pulse 117 Resp 18 B/P (MAP) 164/94 (117) Pulse Ox 98 O2 Delivery Room Air Capillary Refill : Height, Weight, BMI Height: 5'11.00" Weight: 210lbs. 0.0oz. [id number]; 31.99 BMI Method: General Appearance: Anxious, Mild Distress HEENT: PERRL/EOMI, Pharynx Normal Neck: Limited Range of Motion (pain with PROM or AROM to left ); No Lymphadenopathy (L), No Lymphadenopathy (R); Tender Lateral (left sternocleidom astoid muscle and trapezius m uscle tender to palpation with spasms) Cardiovascular: Normal Peripheral Pulses, Tachycardia Respiratory: Chest Non Tender, Lungs Clear, Normal Breath Sounds, No Accessory Muscle Use, No Respiratory Distress Peripheral Pulses: 2+ Carotid (R), 2+ Carotid (L), 2+ Radial Pulses (R), 2+ Radial Pulses (L) Gastrointestinal: Normal Bowel Sounds, No Pulsatile Mass, Non Tender, Soft Extremity: Normal Capillary Refill, Normal Inspection, No Pedal Edema Neurologic/Psychiatric: Alert, Oriented x3, salon assistant II-XII Norm as Tested Skin: Normal Color, Warm/Dry; No Rash Progress/Results/Core Measures Results/Orders My Orders Orders - ENYART,ARIANNA E MD Ketorolac Injection (Toradol Injection) (12/22/21 16:06) Orphenadrine Inj (Ed Only) (Norflex Inje (12/22/21 16:06) Ct Cervical Spine Wo (12/22/21 16:07) Cervical Collar: Apply (12/22/21 16:57) Vital Signs/I&O 12/22/21 16:07 Temp 37.3 Pulse 117 Resp 18 B/P (MAP) 164/94 (117) Pulse Ox 98 O2 Delivery Room Air Progress Progress Note #1: Progress Note Since he mentioned that Toradol in the office helped him will repeat that along with norflex and obtain CT scan of his cervical spine to look for acute bony abnormality to cause a muscle torticollis for him. Progress Note #2: Progress Note CT scan shows degenerative changes but no fracture or displacement. From review of his external medication history and KTRACS he already takes Oxycodone IR 10 mg 3 times a day chronically and Gabapentin for neuropathy. He has recently been prescribed multiple muscle relaxers, most recently Robaxin. Can offer him a soft collar cervical support to wear for the next week and a few valium to help him sleep as well as a steroid course for inflammation. Counseled to work with his primary and if continued problems may need MRI or to see informatics specialist or follow up with Physical therapy again. Diagnostic Imaging Diagonstic Imaging: CT Plain Films/CT/US/NM/MRI: c-spine Comments NAME: ETELVINA CARRILLO [facility] REC#: [id number] PT STATUS: REG ER : 1960 PHYSICIAN: ARIANNA COOL MD ADMIT DATE: 12/22/21/ER FS Draft Date of Exam:12/22/21 CT CERVICAL SPINE WO PROCEDURE: CT cervical spine without contrast. TECHNIQUE: Multiple contiguous axial images were obtained through the cervical spine without the use of intravenous contrast. Sagittal and coronal reformations were then performed. Auto Exposure Controls were utilized during the CT exam to meet ALARA standards for radiation dose reduction. INDICATION: Neck pain. COMPARISON: None available. FINDINGS: Straightening of the normal cervical lordosis without significant anterolisthesis or retrolisthesis. Alignment of the atlantooccipital joint is well maintained. Besides endplate degenerative changes, particularly involving C5 and C6, vertebral body heights are otherwise well maintained. Moderate disc space height loss at C5/C6 and C6/C7. No acute fracture or dislocation. No destructive osseous process. Scattered facet joint degenerative changes and uncovertebral joint hypertrophy. Multilevel small disc bulges are also suggested. Multilevel low level central canal stenosis is present without severe osseous central canal stenosis. Moderate bilateral neural foraminal stenosis at C5/C6. Moderate left and mild right neural foraminal stenosis at C6/C7. No apical pneumothorax. Scattered vascular calcifications. 1 cm region of sclerosis is noted involving the left aspect of the C3 vertebral body extending into the pedicle. IMPRESSION: No acute fracture with mild to moderate multilevel degenerative changes present, greatest at C5/C6 and C6/C7. If there is concern for underlying radiculopathy, further evaluation with MRI non-emergently would be recommended. Nonspecific 1 cm sclerotic focus within the left aspect of C3. This is favored to relate to a bone island though sclerotic metastatic disease is not completely excluded though felt less likely. Dictated on workstation # [id number] Dict: 12/22/21 1629 Trans: 12/22/21 1640 [facility] [id number] Interpreted by: RANJAN GUEVARA MD Electronically signed by: Reviewed: Reviewed by Me Departure Impression Primary Impression: Muscular torticollis Additional Impression: Cervical radiculopathy Disposition: 01 HOME, SELF-CARE Condition: Stable Departure-Patient Inst. Decision time for Depature: 16:54 Referrals: LIAM SCHERER APRN (PCP/Family) Primary Care Physician Patient Instructions: Torticollis, Adult, Cervical Muscle Strain (DC) Add. Discharge Instructions: Try using the soft collar cervical support to help with your neck pain. Use this for the next week to help keep your neck support and allow the muscles in your neck to relax. Use the diazepam or Valium to help with sleep and muscle spasms. This will make you more sleepy in addition to your chronic pain medicine that you already take. Take the steroid to help with inflammation and pain in your neck. This will elevate your blood sugars over the next 5 to 7 days while you are taking the medication but then that will improve. Be careful about your diet and watch what you eat to help limit your spikes in your sugar. Follow-up through the clinic if you continue to have problems and this is not resolving they may need to get an MRI or have you see a informatics specialist or refer you back to physical therapy again All discharge instructions reviewed with patient and/or family. Voiced understanding. Scripts Prednisone (Prednisone) 20 Mg Tab 40 MG PO DAILY for neck pain/spasm for 5 Days, #10 TAB 0 Refills Prov: ARIANNA COOL MD 12/22/21 Diazepam (Diazepam) 5 Mg Tablet 5 MG PO BID PRN for neck pain/muscle spasms for 5 Days, #10 TAB 0 Refills Prov: ARIANNA COOL MD 12/22/21 ARIANNA COOL MD Dec 22, 2021 16:19
--- NOTE | 2021-12-22 16:41 | Diagnostic Imaging Report ---
PROCEDURE: CT cervical spine without contrast. TECHNIQUE: Multiple contiguous axial images were obtained through the cervical spine without the use of intravenous contrast. Sagittal and coronal reformations were then performed. Auto Exposure Controls were utilized during the CT exam to meet ALARA standards for radiation dose reduction. INDICATION: Neck pain. COMPARISON: None available. FINDINGS: Straightening of the normal cervical lordosis without significant anterolisthesis or retrolisthesis. Alignment of the atlantooccipital joint is well maintained. Besides endplate degenerative changes, particularly involving C5 and C6, vertebral body heights are otherwise well maintained. Moderate disc space height loss at C5/C6 and C6/C7. No acute fracture or dislocation. No destructive osseous process. Scattered facet joint degenerative changes and uncovertebral joint hypertrophy. Multilevel small disc bulges are also suggested. Multilevel low level central canal stenosis is present without severe osseous central canal stenosis. Moderate bilateral neural foraminal stenosis at C5/C6. Moderate left and mild right neural foraminal stenosis at C6/C7. No apical pneumothorax. Scattered vascular calcifications. 1 cm region of sclerosis is noted involving the left aspect of the C3 vertebral body extending into the pedicle. IMPRESSION: No acute fracture with mild to moderate multilevel degenerative changes present, greatest at C5/C6 and C6/C7. If there is concern for underlying radiculopathy, further evaluation with MRI non-emergently would be recommended. Nonspecific 1 cm sclerotic focus within the left aspect of C3. This is favored to relate to a bone island though sclerotic metastatic disease is not completely excluded though felt less likely. Dictated by: Dictated on workstation # [id number]
[2021-12-22] MEDS ORDERED: PRD20T PO (16:53)
[2021-12-22] MEDS ORDERED: DIAZ5TAB49 PO (16:53)
== END 2021-12-22 17:00 | disposition home or self-care (01) ==
LOC: EDUNIT# 15:55 → ER FS 15:56
DX: M43.6 Torticollis (principal); M54.12 Radiculopathy, cervical region; F17.210 Nicotine dependence, cigarettes, uncomplicated
CPT/HCPCS: 72125

== ENCOUNTER 2022-02-14 05:42 | Outpatient (CLI) | payer OTHER ==
[~2022-02-14] VITALS: Ht 180.4 cm; Wt 115.0 kg
[~2022-02-14 05:42] MED LIST changes: +DIAZ5TAB49 PO; +OMEP20TA56 PO; -OMEP20TA7 PO
[2022-02-15] MEDS ORDERED: GBPN600T PO (12:05)
[2022-02-15] MEDS ORDERED: ERGO1250 PO (12:05)
[2022-02-15] MEDS ORDERED: METF-479 PO (12:05)
[2022-02-15] MEDS ORDERED: TRIA15OI9 TP (12:05)
== END 2022-02-15 14:44 | disposition home or self-care (01) ==
LOC: PREOP 05:42
PROVIDERS: ATTEND Surgery
DX: Z01.818 Encounter for other preprocedural examination (principal)

== ENCOUNTER 2022-02-25 07:24 | Day surgery (SDC) | payer OTHER ==
[~2022-02-25] VITALS: Ht 180.3 cm; Wt 102.5 kg
[~2022-02-25 07:24] MED LIST changes: +ERGO1250 PO; +GBPN600T PO; +METF-479 PO; +TRIA15OI9 TP
[2022-02-25] MEDS ORDERED: LACTATED RINGERS 1,000 ML IV STA (07:26)
[2022-02-25] MEDS ORDERED: HURRICAINE EXT TUBE (BENZOCAINE) XX PRN (07:30)
[2022-02-25] MEDS ORDERED: proPOfol 200 MG/20 ML (DIPRIVAN) VIAL IV ONE (07:41)
[2022-02-25 07:50] VITALS: BP 121/74
--- NOTE | 2022-02-25 08:16 | Progress Note-Pre Operative ---
Pre-Operative Progress Note H&P Reviewed The H&P was reviewed, patient examined and no changes noted. Time Seen by Provider: 08:13 Date H&P Reviewed: February 25, 2022 Time H&P Reviewed: 08:13 Pre-Operative Diagnosis: Dysphagia SETH GREY DO February 25, 2022 08:16
[2022-02-25 08:30] VITALS: BP 90/42
--- NOTE | 2022-02-25 08:34 | Progress Note-Post Operative ---
Post-Operative Progess Note Surgeon (s)/Vibrating Screed Operator (s) Surgeon SETH GREY DO Vibrating Screed Operator: none Pre-Operative Diagnosis Dysphagia Post-Operative Diagnosis Gastritis Hiatal hernia Procedure & Operative Findings Date of Procedure 02/25/22 Procedure Performed/Findings EGD with bx PROCEDURE NOTE: After informed consent was obtained, the patient was brought to the endoscopy suite, placed in bed in left lateral decubitus position. He was administered IV sedation by the FORENSIC EXAMINER who then monitored vitals the entire time, heart rate, blood pressure and pulse ox and the scope was inserted down the mouth through the esophagus into the stomach. On the way down, did not find any obstruction and able to easily push into the stomach, pushed past the antrum into the duodenum. Duodenum looked good. Pulled back and did a biopsy of antrum, then retroflexed the scope, saw a very small sliding of the GE junction; which means there is a very small hiatal hernia, took a picture of this and then did a biopsy of the body of the stomach. Next, pulled the scope into the GE junction, took a picture of the esoph- ageal changes and then did a biopsy of the GE junction. Pushed the scope back into the stomach, suctioned all the air out of the stomach. At this point pulled the scope up the esophagus, took two pictures on the way up and pulled the scope out. The patient tolerated the procedure, and he recovered in endoscopy suite. Anesthesia Type IV sedation by FORENSIC EXAMINER Estimated Blood Loss Estimated blood loss (mL): scant Specimens/Packing Specimens Removed antral bx GE jxn body of stomach SETH GREY DO February 25, 2022 08:34
[2022-02-25 08:35] VITALS: BP_SYST 120; BP_SYST 89; BP_DIAS 54; BP_DIAS 83
--- NOTE | 2022-02-25 08:35 | Endoscopy Discharge Instruct ---
Endo Procedure/Findings Findings 1.: Gastritis 2.: Hiatal Hernia 3.: Other Findings (Esophagitis) Discharge Instructions - Activity: You might feel a little sleepy until tomorrow. This is due to the medicine you received to relax you. Until tomorrow, you should: NOT drive a car, operate machinery or power tools. NOT drink any alcoholic beverages. NOT make any important decisions or sign importortant papers. Do not return to work until tomorrow, unless otherwise instructed. Resume previous activities tomorrow. Diet: Start by taking liquids. If you tolerate liquids, advance to solid food. 1.: EGD in 3 years Notify Physician - If you experience excessive bleeding, unusual abdominal pain, fever, or chest pain, contact your doctor immediately. SETH GREY DO February 25, 2022 08:35
[2022-02-25 09:06] VITALS: BP 120/83
--- NOTE | 2022-02-25 12:59 | Anesthesia-General Post-Op ---
MAC Patient Condition Mental Status/LOC: Same as Preop Cardiovascular: Satisfactory Nausea/Vomiting: Absent Respiratory: Satisfactory Pain: Controlled Complications: Absent Post Op Complications Complications None Follow Up Care/Instructions Patient Instructions None needed. Anesthesiology Discharge Order Discharge Order Patient is doing well, no complaints, stable vital signs, no apparent adverse anesthesia problems. No complications reported per nursing. NATALIIA KRISHNAMURTHY CRNA February 25, 2022 12:59
== END 2022-02-25 09:13 | disposition home or self-care (01) ==
LOC: ENDO 07:24
PROVIDERS: ATTEND Surgery
DX: K29.50 Unspecified chronic gastritis without bleeding (principal); R13.10 Dysphagia, unspecified; K44.9 Diaphragmatic hernia without obstruction or gangrene; F17.210 Nicotine dependence, cigarettes, uncomplicated
CPT/HCPCS: 82947; 88305

== ENCOUNTER 2022-07-15 16:41 | Emergency (ER) | payer OTHER ==
[~2022-07-15] VITALS: Ht 180 cm; Wt 100.0 kg
[2022-07-15] MEDS ORDERED: KETOROLAC 30 MG/ML VIAL IVP ONE (17:45)
[2022-07-15] MEDS ORDERED: LACTATED RINGERS 1,000 ML IV ONE (17:45)
--- NOTE | 2022-07-15 18:25 | Diagnostic Imaging Report ---
CLINICAL INDICATIONS: Patient with pain in shoulder after lifting parent. Pain. EXAM: X-ray of the right shoulder, 3 views. COMPARISON: None. 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 There is slight elevation of the lateral aspect of the right clavicle in relation to the acromion, but this is of unknown age. If there is concern for right AC joint injury, then x-ray of both shoulders with and without weights would better evaluate. 2: Otherwise, there is no acute fracture or dislocation. 3: There is small degenerative spurs involving the inferior glenoid rim region. Dictated by: Dictated on workstation # [id number]
[2022-07-15 19:23] LABS: SODIUM 133 MMOL/L (135-145)
[2022-07-15 19:24] LABS: ALANINE AMINOTRANSFERASE 28 U/L (0-55); ALBUMIN 4.5 GM/DL (3.2-4.5); ALKALINE PHOSPHATASE 80 U/L (40-136); BILIRUBIN,TOTAL 0.6 MG/DL (0.1-1.0); BUN/CREATININE RATIO 5; CARBON DIOXIDE 21 MMOL/L (21-32); CHLORIDE 92 MMOL/L (98-107); CREATININE SERUM 4.64 MG/DL (0.60-1.30); GFR ESTIMATED 13; GLUCOSE 173 MG/DL (70-105); MAGNESIUM 2.2 MG/DL (1.6-2.4); POTASSIUM 4.1 MMOL/L (3.6-5.0); TOTAL PROTEIN 7.6 GM/DL (6.4-8.2)
[2022-07-15 19:25] LABS: BASOPHILS % (AUTO) 0 % (0-10); EOSINOPHILS % (AUTO) 0 % (0-10); HEMATOCRIT 41 % (40-54); HEMOGLOBIN 13.6 g/dL (13.3-17.7); LYMPHOCYTES # (AUTO) 2.1 10^3/uL (1.0-4.0); LYMPHOCYTES % (AUTO) 31 % (12-44); MEAN CORPUSCULAR HEMOGLOBIN 28 pg (25-34); MEAN CORPUSCULAR HGB CONC 33 g/dL (32-36); MEAN CORPUSCULAR VOLUME 82 fL (80-99); MEAN PLATELET VOLUME 10.1 fL (9.0-12.2); MONOCYTES # (AUTO) 0.9 10^3/uL (0.0-1.0); MONOCYTES % (AUTO) 13 % (0-12); NEUTROPHILS # (AUTO) 3.7 10^3/uL (1.8-7.8); NEUTROPHILS % (AUTO) 55 % (42-75); PLATELET COUNT 170 10^3/uL (130-400); WHITE BLOOD COUNT 6.7 10^3/uL (4.3-11.0)
--- NOTE | 2022-07-15 19:43 | ED General ---
General Chief Complaint: Upper Extremity Stated Complaint: R SHOULDER PAIN Nursing Triage Note: Patient has ambulated to ER 4 with cc of right shoulder pain. Patient reports that he had lifted his father today to help him to the car when he had pain in his shoulder and back. Patient reports that the he did take oxycodone for his pain. His shoulder has continued to hurt this afternoon and he came to ER for evaluation. Source of Information: Patient Exam Limitations: No Limitations (SHADIA ARRINGTON MD) History of Present Illness Date Seen by Provider: Jul 15, 2022 Time Seen by Provider: 17:28 Initial Comments This 62-year-old gentleman presents to the emergency room with primary complaint of right shoulder pain that developed abruptly while he was trying to lift his father to take him to dialysis. He denies any prior injury or pain in the shoulder. This was a nontraumatic event as he was simply attempting to lift his dad. Patient has altered level of alertness. He seems to drift off at times during the conversation and his delivery of the history is difficult to understand. He is also noted to be diaphoretic. His eyes are bloodshot. He reports generally drinking a half pint of liquor per day. He also admits to taking some oxycodone prior to arriving to the ER. He gives a history of he rniated disks but is unclear about what level. He additionally has diabetes, hyperlipidemia, and hypertension. Initial blood pressure was 86/60. Patient reports feeling lightheaded. (SHADIA ARRINGTON MD) Allergies and Home Medications Allergies Coded Allergies: No Known Drug Allergies (Unverified , 05/05/17) Patient Home Medication List Home Medication List Reviewed: Yes (SHADIA ARRINGTON MD) Amlodipine Besylate (Amlodipine Besylate) 5 Mg Tablet, 5 MG PO DAILY, (Reported) Entered as Reported by: JAZ BISHOP on 03/19/21 09 Empagliflozin/Metformin HCl (Synjardy Xr 10-1,000 mg Tablet) 1 Each Tab.bp.24h, 1 EA PO DAILY, (Reported) Entered as Reported by: JAZ BISHOP on 03/19/21908 Ergocalciferol (Vitamin D2) (Vitamin D2) 1,250 Mcg (46793 Unit) Capsule, 1,250 MCG PO WEEK, (Reported) Entered as Reported by: AKOSUA HARRIS on 02/15/22 120 Gabapentin (Gabapentin) 600 Mg Tablet, 600 MG PO BID, (Reported) Entered as Reported by: AKOSUA HARRIS on 02/15/22 120 Glipizide (Glipizide) 10 Mg Tablet, 10 MG PO DAILY, (Reported) Entered as Reported by: ROSEMARIE DESAI on 03/18/211947 Lisinopril (Lisinopril) 40 Mg Tablet, 40 MG PO DAILY, (Reported) Entered as Reported by: JAZ BISHOP on 03/19/21 09 Metformin HCl (Metformin HCl ER) 1,000 Mg Tab.er.24, 1,000 MG PO BID, (Reported) Entered as Reported by: AKOSUA HARRIS on 02/15/22 120 Omeprazole (Omeprazole) 20 Mg Capsule.dr, 20 MG PO DAILY, (Reported) Entered as Reported by: JAZ BISHOP on 03/19/21 09 Oxycodone HCl (Oxycodone HCl) 10 Mg Tablet, 10 MG PO TID PRN for PAIN-MODERATE (5-7), (Reported) Entered as Reported by: RAVEN CELIS on 03/18/21 1714 Last Action: Reviewed Quetiapine Fumarate (Quetiapine Fumarate) 100 Mg Tablet, 100 MG PO BID, (Reported) Entered as Reported by: JAZ BISHOP on 03/19/21 09 Sertraline HCl (Sertraline HCl) 25 Mg Tablet, 25 MG PO DAILY, (Reported) Entered as Reported by: ROSEMARIE DESAI on 03/18/211947 Simvastatin (Simvastatin) 10 Mg Tablet, 10 MG PO DAILY, (Reported) Entered as Reported by: RUSTY ZUÑIGA on 05/05/17 1049 Triamcinolone Acetonide (Triamcinolone Acetonide 0.5% Ointment) 0.5 % Oint, 15 GM TP BID, (Reported) Entered as Reported by: KAOSUA HARRIS on 02/15/22 120 Review of Systems Review of Systems Constitutional: see HPI, diaphoresis EENTM: no symptoms reported Respiratory: no symptoms reported Cardiovascular: see HPI Gastrointestinal: no symptoms reported Genitourinary: no symptoms reported Skin: no symptoms reported Psychiatric/Neurological: See HPI Hematologic/Lymphatic: No Symptoms Reported Immunological/Allergic: no symptoms reported (SHADIA ARRINGTON MD) Past Hlxotbl-Zsdkin-Cxankn Hx Patient Social History Tobacco Use?: Yes Tobacco type used: Cigarettes Smoking Status: Current Everyday Smoker Use of E-Cig and/or Vaping dev: No Substance use?: No Alcohol Use?: No (SHADIA ARRINGTON MD) Immunizations Up To Date First/Initial COVID19 Vaccinat: December 2020 Second COVID19 Vaccination Leon: January 2021 Third COVID19 Vaccination Date: NO (SHADIA ARRINGTON MD) Seasonal Allergies Seasonal Allergies: No (SHADIA ARRINGTON MD) Past Medical History Surgeries: Yes (right ing hernia) Respiratory: Yes COPD, Emphysema Cardiac: Yes High Cholesterol, Hypertension Neurological: Yes (seizure one time related to a med) Neuropathy Reproductive Disorders: No Genitourinary: Yes Kidney Stones Gastrointestinal: Yes (Enlarged Liver) Hepatitis Musculoskeletal: Yes Arthritis Endocrine: Yes Diabetes, Non-Insulin dep Cancer: No Psychosocial: No Integumentary: Yes (STATES HAD A WOUND "STAPH INFECTION" 2007, DENIES MRSA, NO CURRENT WOUNDS) Blood Disorders: No (SHADIA ARRINGTON MD) Physical Exam Vital Signs Vital Signs - First Documented 07/15/22 17:31 Temp 35.9 Pulse 88 Resp 20 B/P (MAP) 86/60 (69) Pulse Ox 97 O2 Delivery Room Air ([facility] DO) Vital Signs Capillary Refill : (SHADIA ARRINGTON MD) Height, Weight, BMI Height: 5'11.00" Weight: 210lbs. 0.0oz. 95.159123ok; 30.00 BMI Method: General Appearance: WD/WN, Other (Mild to moderate distress when moving the right arm) HEENT: Normal ENT Inspection, Other (Injected, hyperemic sclera) Neck: Normal Inspection; No JVD Respiratory: Lungs Clear, Normal Breath Sounds, No Accessory Muscle Use Cardiovascular: Regular Rate, Rhythm, No Edema, No Murmur Gastrointestinal: Normal Bowel Sounds, Non Tender, Soft Extremity: Normal Inspection, No Pedal Edema, Other (Right shoulder is tender to palpation anteriorly near the biceps insertion but also posteriorly at various points. He reports the posterior tenderness is more significant.) Neurologic/Psychiatric: No Motor/Sensory Deficits, Other (Patient delivers a difficult history. He has decreased alertness and sluggish speech. He occasionally drifts off during conversation and seems hypersomnolent. No focal motor deficits appreciated.) Skin: Normal Color, Diaphoresis (SHADIA ARRINGTON MD) Progress/Results/Core Measures Suspected Sepsis SIRS Temperature: Pulse: 88 Respiratory Rate: 20 Laboratory Tests 07/15/22 16:50: White Blood Count 6.7 Blood Pressure 86 /60 Mean: 69 Laboratory Tests 07/15/22 16:50: Creatinine 4.64H, Platelet Count 170, Total Bilirubin 0.6 (SHADIA ARRINGTON MD) Results/Orders Lab Results Laboratory Tests Test 07/15/22 16:50 Range/Units White Blood Count 6.7 4.3-11.0 10^3/uL Red Blood Count 4.94 4.30-5.52 10^6/uL Hemoglobin 13.6 13.3-17.7 g/dL Hematocrit 41 40-54 % Mean Corpuscular Volume 82 80-99 fL Mean Corpuscular Hemoglobin 28 25-34 pg Mean Corpuscular Hemoglobin Concent 33 32-36 g/dL Red Cell Distribution Width 16.0 H 10.0-14.5 % Platelet Count 170 130-400 10^3/uL Mean Platelet Volume 10.1 9.0-12.2 fL Immature Granulocyte % (Auto) 0 % Neutrophils (%) (Auto) 55 42-75 % Lymphocytes (%) (Auto) 31 12-44 % Monocytes (%) (Auto) 13 H 0-12 % Eosinophils (%) (Auto) 0 0-10 % Basophils (%) (Auto) 0 0-10 % Neutrophils # (Auto) 3.7 1.8-7.8 10^3/uL Lymphocytes # (Auto) 2.1 1.0-4.0 10^3/uL Monocytes # (Auto) 0.9 0.0-1.0 10^3/uL Eosinophils # (Auto) 0.0 0.0-0.3 10^3/uL Basophils # (Auto) 0.0 0.0-0.1 10^3/uL Immature Granulocyte # (Auto) 0.0 0.0-0.1 10^3/uL Percent Immature Platelet Fraction 4.4 0.0-7.6 % Sodium Level 133 L 135-145 MMOL/L Potassium Level 4.1 3.6-5.0 MMOL/L Chloride Level 92 L 98-107 MMOL/L Carbon Dioxide Level 21 21-32 MMOL/L Anion Gap 20 H 5-14 MMOL/L Blood Urea Nitrogen 23 H 7-18 MG/DL Creatinine 4.64 H 0.60-1.30 MG/DL Estimat Glomerular Filtration Rate 13 BUN/Creatinine Ratio 5 Glucose Level 173 H 70-105 MG/DL Calcium Level 10.0 8.5-10.1 MG/DL Corrected Calcium 9.6 8.5-10.1 MG/DL Magnesium Level 2.2 1.6-2.4 MG/DL Total Bilirubin 0.6 0.1-1.0 MG/DL Aspartate Amino Transf (AST/SGOT) 32 5-34 U/L Alanine Aminotransferase (ALT/SGPT) 28 0-55 U/L Alkaline Phosphatase 80 40-136 U/L Total Protein 7.6 6.4-8.2 GM/DL Albumin 4.5 3.2-4.5 GM/DL Serum Alcohol < 10 <10 MG/DL (BOBBI BOYD DO) Medications Given in ED Current Medications Medications Dose Ordered Sig/Marcio Route Start Time Stop Time Status Last Admin Dose Admin Ketorolac Tromethamine 15 mg ONCE ONCE IVP 07/15/22 17:45 07/15/22 17:46 DC 07/15/22 18:14 15 MG Lactated Ringer's 1,000 ml @ 0 mls/hr Q0M ONCE IV 07/15/22 17:45 07/15/22 17:46 DC 07/15/22 18:14 1,000 MLS/HR (BOBBI BOYD DO) Vital Signs/I&O 07/15/22 17:31 Temp 35.9 Pulse 88 Resp 20 B/P (MAP) 86/60 (69) Pulse Ox 97 O2 Delivery Room Air (BOBBI BOYD DO) Vital Signs/I&O Capillary Refill : (SHADIA ARRINGTON MD) Blood Pressure Mean: 69 Progress Note : Time: 19:46 Progress Note Patient was initially hydrated with a liter of LR. Toradol 15 mg IV was administered for pain control. Labs were reviewed and he was found to have significant acute kidney injury. A second liter of fluid (normal saline) was ordered for further hydration. Patient needs admission at this point for treatment and monitoring of his acute kidney injury. Care is being transitioned to Dr. Boyd at this time. X-ray revealed no definite acute injury of the right shoulder. (SHADIA ARRINGTON MD) Diagnostic Imaging Diagonstic Imaging: Xray Plain Films/CT/US/NM/MRI: other (Right shoulder) Comments NAME: ETELVINA CARRILLO [facility] REC#: [id number] PT STATUS: REG ER : 1960 PHYSICIAN: SHADIA ARRINGTON MD ADMIT DATE: 07/15/22/ER FS Draft Date of Exam:07/15/22 SHOULDER 3 VIEW RIGHT CLINICAL INDICATIONS: Patient with pain in shoulder after lifting parent. Pain. EXAM: X-ray of the right shoulder, 3 views. COMPARISON: None. 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 There is slight elevation of the lateral aspect of the right clavicle in relation to the acromion, but this is of unknown age. If there is concern for right AC joint injury, then x-ray of both shoulders with and without weights would better evaluate. 2: Otherwise, there is no acute fracture or dislocation. 3: There is small degenerative spurs involving the inferior glenoid rim region. Dictated on workstation # [id number] Dict: 07/15/221816 Trans: 07/15/221823 [facility] [id number] Interpreted by: PATRICIA ARIAS MD Reviewed: Reviewed by Me (SHADIA ARRINGTON MD) Departure Communication (Admissions) Patient is hemodynamically stable, alert, oriented and able to make his own medical decisions. He goes back and forth multiple times on whether he can be transferred for further evaluation of his hypotension, MIGUEL. He states his father is in the car and he needs to get him home and he also has given to dialysis on Friday. States multiple times and there is no one else that can help him. Advised he should call family or friends in the area to see if they might be able to help him. He called his cousin who is unable to accommodate. He states he has no other family in the area. Unfortunately he decides to leave AGAINST MEDICAL ADVICE. I gave him strict return precautions and did advise him that his symptoms could be life-threatening or lead to chronic kidney problems with the need for dialysis. He states understanding. Did advise he can return to care for further evaluation should he change his mind. He states understanding. Request that he get his kidney function rechecked as soon as possible and increase his fluids at home. He is to stop taking any home pain or blood pressure medications due to hypotension until he follows up with his primary doctor (BOBBI BOYD DO) Impression Primary Impression: Acute kidney injury Additional Impression: Hypotension Qualified Codes: I95.9 - Hypotension, unspecified Disposition: AGAINST MEDICAL ADVICE Condition: Against Medical Advice Transfer Transfer Reason: Exceeds level of care (SHADIA ARRINGTON MD) Departure-Patient Inst. Referrals: [facility]/NARDA (PCP/Family) Primary Care Physician Patient Instructions: Acute Kidney Injury, Low Blood Pressure (DC) Add. Discharge Instructions: As discussed we recommend that you be admitted to the hospital for your decreased kidney function as well as low blood pressures. You have declined stating that you need to take her father home and arrange dialysis. While I completely understand it is very important that you get your symptoms checked out immediately and know that they could be life-threatening. If you change your mind and wish to be evaluated you may come back to emergency department at any time. In the meantime I recommend you increase your fluids at home. Use the shoulder sling as needed for comfort. There is no bony injury to your shoulder however you may need to follow-up with your primary doctor for further imaging and testing as you may have damaged her rotator cuff. Need to have your kidney function rechecked as soon as possible. Do not take any home medications for blood pressure if you have them. All discharge instructions reviewed with patient and/or family. Voiced understanding. Copy Copies To 1: [facility]/SHADIA FOSTER MD Jul 15, 2022 19:43 BOBBI BOYD DO Jul 15, 2022 21:28
[2022-07-15] MEDS ORDERED: NS IV 1000 ML 1,000 ML IV SCH (19:45)
[2022-07-15 21:35] VITALS: BP 91/77
== END 2022-07-15 21:35 | disposition left against medical advice (07) ==
LOC: EDUNIT# 16:41 → ER FS 16:42
DX: I95.9 Hypotension, unspecified (principal); N17.9 Acute kidney failure, unspecified; F17.210 Nicotine dependence, cigarettes, uncomplicated; Z87.442 Personal history of urinary calculi
CPT/HCPCS: 36415; 73030; 80053; 80320; 83735; 85025

== ENCOUNTER 2022-11-03 17:03 | Emergency (ER) | payer OTHER ==
[~2022-11-03] VITALS: Ht 180.3 cm; Wt 105.5 kg
[~2022-11-03 17:03] MED LIST changes: +ALBU8.5H6 IH; -RT-ALBUINH IH
[2022-11-03] MEDS ORDERED: NS IV 1000 ML 1,000 ML IV STA ×2 (17:19→18:14)
[2022-11-03] MEDS ORDERED: ORPHENADRINE 60 MG/2 ML (NORFLEX) AMP (ED ONLY) IVP STA (17:19)
[2022-11-03 17:42] LABS: BASOPHILS % (AUTO) 0 % (0-10); EOSINOPHILS # (AUTO) 0.1 10^3/uL (0.0-0.3); EOSINOPHILS % (AUTO) 0 % (0-10); HEMATOCRIT 36 % (40-54); HEMOGLOBIN 12.3 g/dL (13.3-17.7); LYMPHOCYTES # (AUTO) 2.8 10^3/uL (1.0-4.0); LYMPHOCYTES % (AUTO) 22 % (12-44); MEAN CORPUSCULAR HEMOGLOBIN 28 pg (25-34); MEAN CORPUSCULAR HGB CONC 35 g/dL (32-36); MEAN CORPUSCULAR VOLUME 82 fL (80-99); MONOCYTES # (AUTO) 0.9 10^3/uL (0.0-1.0); MONOCYTES % (AUTO) 7 % (0-12); NEUTROPHILS % (AUTO) 70 % (42-75); PLATELET COUNT 150 10^3/uL (130-400); WHITE BLOOD COUNT 12.9 10^3/uL (4.3-11.0)
--- NOTE | 2022-11-03 17:57 | ED General ---
General Chief Complaint: Back Problems Stated Complaint: BACK PAIN Nursing Triage Note: Patient reports he has herniated discs in his lower back and has chronic back pain. He states the pain is worse today and the hydrocodone he is taking at home is not helping. Source of Information: Patient, Old Records (hospital admit to Dr. Pearce for [facility] primary care service in February 2021 for acute respiratory failure, Dr Dick, pulmonolgist, notes from February 2021) History of Present Illness Date Seen by Provider: Nov 03, 2022 Time Seen by Provider: 17:06 Initial Comments 62-year-old male presenting with complaints of acute exacerbation of his chronic low back pain. He states the pain has been worse since last night and he had taken hydrocodone at home but it was not helping. He denies any acute injury or activity to exacerbate his back pain. He complains of constant pain into his legs worse on the left side. He denies any loss of bowel or bladder control. He denies pain with urination. He has had no recent evaluation of his spine but states he had previously seen I specialist about his back and they wanted to do epidural injections with steroids and he refused so they said that they did not have anything else he could help him with. He has not seen anyone specifically about his back since then. He has diabetes and does not routinely check his s ugars. He is not following a strict diabetic diet. 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 He reports moving here from [place] to take care of them and follows with [facility] for his medical care and is scheduled to see new provider in [place] for follow up. He reports having bulging disc in lower back as the source of his back pains. Timing/Duration: 12-24 Hours Severity: Severe Modifying Factors: improves with Medication (mild improvement with Hydrocodone); worse with Movement Associated Systoms: No Chest Pain, No Cough; Diaphoresis (feels that he is sweating due to using medicine for eczema on his scalp); No Fever/Chills, No Headaches, No Loss of Appetite, No Malaise, No Nausea/Vomiting, No Rash, No Seizure, No Shortness of Air, No Syncope, No Weakness Allergies and Home Medications Allergies Coded Allergies: No Known Drug Allergies (Unverified , 05/05/17) Patient Home Medication List Home Medication List Reviewed: Yes Amlodipine Besylate (Amlodipine Besylate) 5 Mg Tablet, 5 MG PO DAILY, (Reported) Entered as Reported by: JAZ BISHOP on 03/19/21 09 Empagliflozin/Metformin HCl (Synjardy Xr 10-1,000 mg Tablet) 1 Each Tab.bp.24h, 1 EA PO DAILY, (Reported) Entered as Reported by: JAZ BISHOP on 03/19/21 09 Ergocalciferol (Vitamin D2) (Vitamin D2) 1,250 Mcg (73892 Unit) Capsule, 1,250 MCG PO WEEK, (Reported) Entered as Reported by: AKOSUA HARRIS on 02/15/22 120 Gabapentin (Gabapentin) 600 Mg Tablet, 600 MG PO BID, (Reported) Entered as Reported by: AKOSUA HARRIS on 02/15/22 120 Glipizide (Glipizide) 10 Mg Tablet, 10 MG PO DAILY, (Reported) Entered as Reported by: ROSEMARIE DESAI on 03/18/211947 Lisinopril (Lisinopril) 40 Mg Tablet, 40 MG PO DAILY, (Reported) Entered as Reported by: JAZ BISHOP on 03/19/21908 Meloxicam (Meloxicam) 7.5 Mg Tablet, 7.5 MG PO DAILY Prescribed by: ARIANNA COOL on 11/03/221942 Metformin HCl (Metformin HCl ER) 1,000 Mg Tab.er.24, 1,000 MG PO BID, (Reported) Entered as Reported by: AKOSUA HARRIS on 02/15/22 120 Omeprazole (Omeprazole) 20 Mg Capsule.dr, 20 MG PO DAILY, (Reported) Entered as Reported by: JAZ BISHOP on 03/19/21908 Oxycodone HCl (Oxycodone HCl) 10 Mg Tablet, 10 MG PO TID PRN for PAIN-MODERATE (5-7), (Reported) Entered as Reported by: RAVEN CELIS on 03/18/21 171 Quetiapine Fumarate (Quetiapine Fumarate) 100 Mg Tablet, 100 MG PO BID, (Reported) Entered as Reported by: JAZ BISHOP on 03/19/21 09 Sertraline HCl (Sertraline HCl) 25 Mg Tablet, 25 MG PO DAILY, (Reported) Entered as Reported by: ROSEMARIE DESAI on 03/18/21 194 Simvastatin (Simvastatin) 10 Mg Tablet, 10 MG PO DAILY, (Reported) Entered as Reported by: RUSTY ZUÑIGA on 05/05/17 1049 Triamcinolone Acetonide (Triamcinolone Acetonide 0.5% Ointment) 0.5 % Oint, 15 GM TP BID, (Reported) Entered as Reported by: AKOSUA HARRIS on 02/15/22 1205 Review of Systems Review of Systems Constitutional: see HPI; No chills; diaphoresis; No fever EENTM: no symptoms reported; No ear pain, No blurred vision, No vision loss, No epistaxis, No nose congestion Respiratory: No cough, No short of breath Cardiovascular: No chest pain, No edema, No palpitations, No syncope Gastrointestinal: No nausea, No vomiting Genitourinary: No dysuria, No hematuria Musculoskeletal: see HPI Skin: No rash Psychiatric/Neurological: Denies Headache, Denies Numbness, Denies Paresthesia, Denies Weakness Past Evjgett-Tuafhb-Tngygd Hx Patient Social History Tobacco Use?: Yes Smoking Status: Current Everyday Smoker Substance use?: No Alcohol Use?: Yes Pt feels they are or have been: No Immunizations Up To Date First/Initial COVID19 Vaccinat: December 2020 Second COVID19 Vaccination Leon: January 2021 Third COVID19 Vaccination Date: December 2020 Seasonal Allergies Seasonal Allergies: No Past Medical History Surgery/Hospitalization HX: neuropathy, DM, herniated discs Surgeries: Yes (right ing hernia) Respiratory: Yes COPD, Emphysema Cardiac: Yes High Cholesterol, Hypertension Neurological: Yes (seizure one time related to a med) Neuropathy Reproductive Disorders: No Genitourinary: Yes Kidney Stones Gastrointestinal: Yes (Enlarged Liver) Hepatitis Musculoskeletal: Yes Arthritis Endocrine: Yes Diabetes, Non-Insulin dep Cancer: No Psychosocial: No Integumentary: Yes (STATES HAD A WOUND "STAPH INFECTION" 2007, DENIES MRSA, NO CURRENT WOUNDS) Blood Disorders: No Physical Exam Vital Signs Vital Signs - First Documented 11/03/22 17:07 Temp 36.8 Pulse 135 Resp 18 B/P (MAP) 119/57 (77) Pulse Ox 93 O2 Delivery Room Air Capillary Refill : Less Than 3 Seconds Height, Weight, BMI Height: 5'11.00" Weight: 210lbs. 0.0oz. 95.506543ht; 32.00 BMI Method: General Appearance: No Apparent Distress, Obese, Other (diaphoretic) HEENT: PERRL/EOMI, Pharynx Normal, Moist Mucous Membranes Neck: Full Range of Motion, Normal Inspection, Non Tender, Supple Respiratory: Chest Non Tender, Lungs Clear, Normal Breath Sounds, No Accessory Muscle Use, No Respiratory Distress Cardiovascular: No Murmur, Normal Peripheral Pulses, Tachycardia Gastrointestinal: Normal Bowel Sounds, No Pulsatile Mass, Non Tender, Soft Rectal: Deferred Back: No CVA Tenderness, No Vertebral Tenderness, Muscle Spasm (left paraspinal muscle tenderness and spasms) Extremity: Normal Capillary Refill, Normal Inspection, Non Tender, No Calf Tenderness, No Pedal Edema Neurologic/Psychiatric: Alert, Oriented x3, sporting goods sales associate II-XII Norm as Tested Skin: Normal Color, Diaphoresis Progress/Results/Core Measures Suspected Sepsis SIRS Temperature: Pulse: 135 Respiratory Rate: 18 Laboratory Tests 11/03/22 17:40: White Blood Count 12.9H Blood Pressure 119 /57 Mean: 77 Laboratory Tests 11/03/22 17:40: Creatinine 0.93, INR Comment 0.9, Platelet Count 150, Total Bilirubin 0.6 Results/Orders Lab Results Laboratory Tests Test 11/03/22 17:32 11/03/22 17:40 11/03/22 18:55 Range/Units Glucometer 224 H 70-110 MG/DL White Blood Count 12.9 H 4.3-11.0 10^3/uL Red Blood Count 4.37 4.30-5.52 10^6/uL Hemoglobin 12.3 L 13.3-17.7 g/dL Hematocrit 36 L 40-54 % Mean Corpuscular Volume 82 80-99 fL Mean Corpuscular Hemoglobin 28 25-34 pg Mean Corpuscular Hemoglobin Concent 35 32-36 g/dL Red Cell Distribution Width 14.3 10.0-14.5 % Platelet Count 150 130-400 10^3/uL Mean Platelet Volume 10.0 9.0-12.2 fL Immature Granulocyte % (Auto) 1 % Neutrophils (%) (Auto) 70 42-75 % Lymphocytes (%) (Auto) 22 12-44 % Monocytes (%) (Auto) 7 0-12 % Eosinophils (%) (Auto) 0 0-10 % Basophils (%) (Auto) 0 0-10 % Neutrophils # (Auto) 9.0 H 1.8-7.8 10^3/uL Lymphocytes # (Auto) 2.8 1.0-4.0 10^3/uL Monocytes # (Auto) 0.9 0.0-1.0 10^3/uL Eosinophils # (Auto) 0.1 0.0-0.3 10^3/uL Basophils # (Auto) 0.0 0.0-0.1 10^3/uL Immature Granulocyte # (Auto) 0.1 0.0-0.1 10^3/uL Prothrombin Time 13.1 12.2-14.7 SEC INR Comment 0.9 0.8-1.4 Activated Partial Thromboplast Time 24 24-35 SEC Sodium Level 132 L 135-145 MMOL/L Potassium Level 3.9 3.6-5.0 MMOL/L Chloride Level 95 L 98-107 MMOL/L Carbon Dioxide Level 18 L 21-32 MMOL/L Anion Gap 19 H 5-14 MMOL/L Blood Urea Nitrogen 9 7-18 MG/DL Creatinine 0.93 0.60-1.30 MG/DL Estimat Glomerular Filtration Rate 93 BUN/Creatinine Ratio 10 Glucose Level 222 H 70-105 MG/DL Calcium Level 9.6 8.5-10.1 MG/DL Corrected Calcium 9.8 8.5-10.1 MG/DL Magnesium Level 1.2 L 1.6-2.4 MG/DL Total Bilirubin 0.6 0.1-1.0 MG/DL Aspartate Amino Transf (AST/SGOT) 24 5-34 U/L Alanine Aminotransferase (ALT/SGPT) 23 0-55 U/L Alkaline Phosphatase 77 40-136 U/L Troponin I < 0.30 <0.30 NG/ML Pro-B-Type Natriuretic Peptide 625.8 H <125.0 PG/ML Total Protein 6.9 6.4-8.2 GM/DL Albumin 3.8 3.2-4.5 GM/DL Serum Alcohol < 10 <10 MG/DL Urine Color YELLOW Urine Clarity CLEAR Urine pH 5.5 5-9 Urine Specific [place] <=1.005 1.016-1.022 Urine Protein NEGATIVE NEGATIVE Urine Glucose (UA) 3+ H NEGATIVE Urine Ketones NEGATIVE NEGATIVE Urine Nitrite NEGATIVE NEGATIVE Urine Bilirubin NEGATIVE NEGATIVE Urine Urobilinogen 0.2 < = 1.0 MG/DL Urine Leukocyte Esterase NEGATIVE NEGATIVE Urine RBC (Auto) NEGATIVE NEGATIVE Urine RBC 2-5 H /HPF Urine WBC 5-10 H /HPF Urine Crystals NONE /LPF Urine Bacteria FEW H /HPF Urine Casts NONE /LPF Urine Mucus NEGATIVE /LPF Urine Culture Indicated YES Urine Opiates Screen POSITIVE H NEGATIVE Urine Oxycodone Screen POSITIVE H NEGATIVE Urine Methadone Screen NEGATIVE NEGATIVE Urine Propoxyphene Screen NEGATIVE NEGATIVE Urine Barbiturates Screen NEGATIVE NEGATIVE Ur Tricyclic Antidepressants Screen POSITIVE H NEGATIVE Urine Phencyclidine Screen NEGATIVE NEGATIVE Urine Amphetamines Screen NEGATIVE NEGATIVE Urine Methamphetamines Screen NEGATIVE NEGATIVE Urine Benzodiazepines Screen NEGATIVE NEGATIVE Urine Cocaine Screen NEGATIVE NEGATIVE Urine Cannabinoids Screen NEGATIVE NEGATIVE My Orders Orders - ARIANNA COOL MD Cbc With Automated Diff (11/03/22 17:17) Magnesium (11/03/22 17:17) Ekg Tracing (11/03/22 17:17) Comprehensive Metabolic Panel (11/03/22 17:17) Protime With Inr (11/03/22 17:17) Partial Thromboplastin Time (11/03/22 17:17) O2 (11/03/22 17:17) Monitor-Rhythm Ecg Trace Only (11/03/22 17:17) Ed Iv/Invasive Line Start (11/03/22 17:17) Troponin I Fs (11/03/22 17:17) Probnp Fs (11/03/22 17:17) Ua Culture If Indicated (11/03/22 17:17) Accucheck Stat ONCE (11/03/22 17:17) Ct Lumbar Spine Wo (11/03/22 17:17) Ns Iv 1000 Ml (Sodium Chloride 0.9%) (11/03/22 17:19) Orphenadrine Inj (Ed Only) (Norflex Inje (11/03/22 17:19) Dexamethasone Injection (Decadron Injec (11/03/22 17:19) Drug Screen Stat (Urine) (11/03/22 17:23) Magnesium 1 Gm/100 Ml Ivpb (Magnesium Kaminski (11/03/22 18:14) Ns Iv 1000 Ml (Sodium Chloride 0.9%) (11/03/22 18:14) Alcohol (11/03/22 18:45) Urine Culture (11/03/22 18:55) Ketorolac Injection (Toradol Injection) (11/03/22 19:36) Vital Signs/I&O 11/03/22 11/03/22 17:07 19:47 Temp 36.8 Pulse 135 67 Resp 18 16 B/P (MAP) 119/57 (77) 131/96 Pulse Ox 93 96 O2 Delivery Room Air Room Air Capillary Refill : Less Than 3 Seconds Blood Pressure Mean: 77 Point of Care Testing Finger Stick Blood Glucose: 224 Progress Note #1: Progress Note Evaluate for potential life-threatening illness such as acute renal failure, electrolyte abnormality, heart attack, arrhythmia, urinary tract infection, drug abuse, acute spinal injury. Placed on cardiac lunchroom monitor with him having tachycardia on physical exam. Initial cardiac telemetry monitoring on my independent review and interpretation shows sinus tachycardia with a heart rate in the 120s. His initial blood pressure was okay at 119/57. His oxygen saturation is 93% on room air. he is afebrile. Order CT scan of lumbar spine to evaluate his acute on chronic low back pain. Electrocardiogram to further evaluate his sinus tachycardia seen on physical exam on cardiac telemetry monitoring. Labs to look at his blood counts, electrolytes and chemistry panel, cardiac enzymes, urinalysis, urine drug screen. From review of his previous emergency department visit he had acute renal failure at that time in June 2022 and had refused admission. On review of his electronic medical record in February 2021 he was admitted to [facility] for pneumonia and chest pain. On review of the cardiology notes of that admission he had sinus tachycardia on his electrocardiogram. They did a echocardiogram that showed hypertrophy with an ejection fraction of 80 to 85% that was estimated. He had grade 1 diastolic dysfunction. He did improve and was discharged home from that hospital admission. Will give NS 1 L IVF bolus for his tachycardia and hyperglycemia as his accucheck is 224. Since his prior labs from June 2022 had shown acute kidney injury will avoid toradol or NSAIDS for now but try a steroid along with muscle relaxer for his low back pain exacerbation. Progress Note #2: Time: 18:15 Progress Note After patient had received his steroid and muscle relaxer he had an episode of hypotension with decreased mental status. This improved with laying him down and as his IV fluids are infusing. He appears to have had a vasovagal or orthostatic hypotension possible reaction to the muscle relaxer in addition to some dehydration. Continue with the IV fluids and cardiac telemetry monitoring. On review of his labs his blood count showed mild elevation of his white blood cell to 12.9. He had some mild anemia with a hemoglobin of 12.3. His chemistry panel showed a normal renal function today but he did have the elevated glucose. His cardiac enzymes were negative and not elevated. I have reviewed the radiologist reading of his CT scan of the lumbar spine and it showed no acute bony injury or fracture. He had bulging disc at L3-4 and L4-5 without acute significant spinal canal stenosis. He had a low magnesium of 1.2 so we will supplement that and give additional IV fluids to try and help obtain a urinalysis sample. 1841 after further discussion with patient he admits to drinking some vodka at home today prior to coming to the ED. This could be another complication with his episode of hypotension and tachycardia. Will add on alcohol level. Continue to monitor cardiac telemetry monitoring and vital signs. try to get Urine specimen for testing from him as well. Review of his external medication history shows he had recent prescription for Oxycodone 10 mg q 8 hours prn pain for dorsalgia. I did ask him about this as he initially said he was taking hydrocodone but when I asked him about the Oxycodone instead of the Hydrocodone he apologized and said he had forgot that he was taking the "medicine that starts with an O and not the hydrocodone" . 1920 Alcohol level was <10 and Urine drug screen shows Opiates, Oxycodone, Tricyclics. He had dilute UA after getting over a liter of NS for IVF hydration. He had 3+ glucose in his urine to go with high serum glucose and poor control of Diabetes. He had no ketones to indicate DKA, negative Nit/LE to indicate UTI. He had 5-10 WBC and few bacteria so a culture was reflexed but he had no complaint of UTI symptoms so will defer antibiotic unless culture shows he requires one. On my personal review and interpretation of his cardiac lunchroom monitor he has improvement in his heart rate down to 100 sinus rhythm without ectopy or ischemia. Progress Note #3: Time: 19:38 Progress Note Reviewed with patient that his CT scan did not show acute changes to his spine but he has the chronic bulging disks. There was no acute compression of the spinal cord or nerve seen on the CT. If he continues to have severe symptoms then his primary doctor may want to order an MRI or have him see pain management or disability specialist. In the meantime since he already has a prescription for oxycodone I did not have a stronger pain medicine to prescribe him. Since he had that in addition to gabapentin will add in an NSAID but avoid muscle relaxer for home since he had drop in blood pressure with the muscle relaxer and muscle relaxers can have interaction with Oxycodone or any narcotic to cause additive sedation/hypotension. Patient had evidence of dehydration and his heart rate and blood pressure are improved with hydration of 2 L of NS while in ED. He was counseled to not be driving after taking Oxycodone and Gabapentin as they can cause sedation and confusion. He was alert and oriented and appropriate as I was reviewing his findings and plan for discharge. I advised him that with his low blood pressure and fast heart rate earlier I had considered having to admit him to the hospital as he was confused and slow to answer questions when he had the hypotension and tachycardia. However, with his significant improvement with IV fluid hydration and not showing acute kidney injury or acute coronary syndrome, I felt he was improved and stable where he would be safe to go home rather than be admitted. Patient agreed he was doing better and did not feel he needed admit. He was cautioned on the effects of Oxycodone and Gabapentin and advised that he was going to have elevation of glucose for 24 to 48 hours from the small dose of steroids here in ED he got for inflammation and pain. Will continue NSAID at home and give Toradol 30 mg IV prior to discharge. Counseled about follow up and return precautions for his acute on chronic back pain. ECG Initial ECG Impression Date: Nov 03, 2022 Initial ECG Impression Time: 17:27 Initial ECG Rate: 127 Initial ECG Rhythm: S.Tach Initial ECG Comparisson: Unchanged (similar to 03/18/2021) Comment Based on my personal review and interpretation his electrocardiogram shows sinus tachycardia with a heart rate of 127 bpm. TX interval [address] elevation. QT interval 390 ms with a QTc interval 465 ms. Overall this appears similar to tracing from March 18, 2021. Diagnostic Imaging Diagonstic Imaging: CT Plain Films/CT/US/NM/MRI: other (lumbar spine) Comments NAME: ETELVINA CARRILLO MED REC#: [id number] PT STATUS: REG ER : 1960 PHYSICIAN: ARIANNA COOL MD ADMIT DATE: 11/03/22/ER FS Draft Date of Exam:11/03/22 CT LUMBAR SPINE WO Procedure: CT lumbar spine without contrast. Technique: Multiple contiguous axial images were obtained through the lumbar spine without the use of intravenous contrast. Sagittal and coronal reformations were then performed. Auto Exposure Controls were utilized during the CT exam to meet ALARA standards for radiation dose reduction. Date: October,. Indication: 62-year-old male, low back pain. Comparison: None. Findings: The alignment of the lumbar spine is unremarkable. There is no identified acute fracture of the lumbar spine. There is mild disc height loss at L3-L4 and L4-L5. CT is limited for assessment of disc pathology as well as additional non-bony causes of pathology in the spinal canal. There is no CT apparent very large disc bulge or extrusion or identified high-grade spinal stenosis. There are atherosclerotic calcifications. The sacroiliac joints are grossly unremarkable in appearance. Impression: 1. No identified acute abnormality of the lumbar spine. 2. Mild disc height loss at L3-L4 and L4-L5 without CT apparent large disc protrusion or extrusion or high-grade spinal stenosis. Dictated on workstation # [id number] Dict: 11/03/22 1800 Trans: 11/03/22 1811 [facility] [id number] Interpreted by: KAYLENE SANTANA MD Electronically signed by: Reviewed: Reviewed by Me Critical Care Note Critical Care Total Time (minutes) 60 minutes Progress 60 minutes of critical care time was spent with the patient. Time excludes separately billable procedures. Time was spent obtaining history from patient, review of electronic medical record for prior hospital admission and pulmonary consult, ordering tests and reviewing results, ordering interventions and reviewing response, discussion with patient and documentation in the chart. Patient was at risk of cardiac and neurologic compromise as he had tachycardia and hypotension as well as mental status changes that required my direct monitoring and management to prevent worsening or complete failure of cardiac or neurologic systems. Departure Impression Primary Impression: Acute exacerbation of chronic low back pain Additional Impressions: Hyperglycemia due to type 2 diabetes mellitus Qualified Codes: E11.65 - Type 2 diabetes mellitus with hyperglycemia Vasovagal near syncope Orthostatic hypotension Hypomagnesemia Dehydration Opiate dependence, continuous Disposition: HOME, SELF-CARE Condition: Improved Departure-Patient Inst. Decision time for Depature: 19:43 Referrals: LOR GONZALEZ MD (PCP) Primary Care Physician [facility]DA (Family) Primary Care Physician Patient Instructions: Dehydration, Adult ED, Diabetes and Diet, High Blood Sugar, Adult ED, Low Back Pain ED, Opioids for Short-Term Treatment of Pain ED Add. Discharge Instructions: Your CT scan shows no new fractures or acute findings to make your pain worse. This could be from a strain since you are helping care for your parents. Check with clinic at least by the phone tomorrow. They may want to set you up for a MRI or refer you to pain management or spine doctor about your acute worsening of your low back pain. Continue with your Oxycodone and Gabapentin for pain. I prescribed an anti- inflammatory pain medicine to try and work along with these to help with your pain. You did get a single dose of steroids here in the ED so your blood sugars can be elevated for the next 24 to 48 hours as that wears out of your system. Watch your diet and be more strict with a diabetic diet. Follow up with clinic about your diabetes and chronic pain issues. Try to stay well hydrated and drink more water and electrolyte drinks as you are showing some dehydration here in the Emergency Department. All discharge instructions reviewed with patient and/or family. Voiced understanding. Scripts Meloxicam (Meloxicam) 7.5 Mg Tablet 7.5 MG PO DAILY for low back pain for 30 Days, #30 TAB 0 Refills Prov: ARIANNA COOL MD 11/03/22 ARIANNA COOL MD Nov 03, 2022 17:57
[2022-11-03 17:59] LABS: INR 0.9 (0.8-1.4); PROTHROMBIN TIME PATIENT 13.1 SEC (12.2-14.7)
[2022-11-03 18:05] LABS: ALBUMIN 3.8 GM/DL (3.2-4.5); BILIRUBIN,TOTAL 0.6 MG/DL (0.1-1.0); CALCIUM 9.6 MG/DL (8.5-10.1); CREATININE SERUM 0.93 MG/DL (0.60-1.30); MAGNESIUM 1.2 MG/DL (1.6-2.4); POTASSIUM 3.9 MMOL/L (3.6-5.0); TOTAL PROTEIN 6.9 GM/DL (6.4-8.2)
--- NOTE | 2022-11-03 18:12 | Diagnostic Imaging Report ---
Procedure: CT lumbar spine without contrast. Technique: Multiple contiguous axial images were obtained through the lumbar spine without the use of intravenous contrast. Sagittal and coronal reformations were then performed. Auto Exposure Controls were utilized during the CT exam to meet ALARA standards for radiation dose reduction. Date: October,. Indication: 62-year-old male, low back pain. Comparison: None. Findings: The alignment of the lumbar spine is unremarkable. There is no identified acute fracture of the lumbar spine. There is mild disc height loss at L3-L4 and L4-L5. CT is limited for assessment of disc pathology as well as additional non-bony causes of pathology in the spinal canal. There is no CT apparent very large disc bulge or extrusion or identified high-grade spinal stenosis. There are atherosclerotic calcifications. The sacroiliac joints are grossly unremarkable in appearance. Impression: 1. No identified acute abnormality of the lumbar spine. 2. Mild disc height loss at L3-L4 and L4-L5 without CT apparent large disc protrusion or extrusion or high-grade spinal stenosis. Dictated by: Dictated on workstation # [id number]
[2022-11-03] MEDS ORDERED: MAGNESIUM 1 GM/100 ML IVPB 100 ML IV STA (18:14)
[2022-11-03 18:59] LABS: BILIRUBIN,URINE NEGATIVE (NEGATIVE); CLARITY,URINE CLEAR; COLOR,URINE YELLOW; GLUCOSE, URINE (UA) 3+ (NEGATIVE); KETONES,URINE NEGATIVE (NEGATIVE); LEUKOCYTE ESTERASE ,URINE NEGATIVE (NEGATIVE); NITRITE,URINE NEGATIVE (NEGATIVE); PH,URINE 5.5 (5-9); PROTEIN,URINE NEGATIVE (NEGATIVE)
[2022-11-03 19:00] LABS: BACTERIA,URINE FEW /HPF
[2022-11-03 19:07] LABS: OXYCODONE STAT POSITIVE (NEGATIVE); TRICYCLIC ANTIDEPRESSANTS SCRE POSITIVE (NEGATIVE)
[2022-11-03 19:08] LABS: AMPHETAMINE SCREEN, URINE NEGATIVE (NEGATIVE); BARBITURATE SCREEN URINE NEGATIVE (NEGATIVE); BENZODIAZEPINES SCREEN URINE NEGATIVE (NEGATIVE); CANNABINOID SCREEN, URINE NEGATIVE (NEGATIVE); COCAINE SCREEN URINE NEGATIVE (NEGATIVE); METHADONE STAT NEGATIVE (NEGATIVE); OPIATE SCREEN URINE POSITIVE (NEGATIVE); PROPOXYPHENE STAT NEGATIVE (NEGATIVE)
[2022-11-03] MEDS ORDERED: KETOROLAC 30 MG/ML VIAL IVP STA (19:36)
[2022-11-03] MEDS ORDERED: MELO7.5T46 PO (19:43)
[2022-11-03 19:47] VITALS: BP 131/96
== END 2022-11-03 19:50 | disposition home or self-care (01) ==
LOC: EDUNIT# 17:03 → ER FS 17:05
DX: M54.50 Low back pain, unspecified (principal); G89.29 Other chronic pain; E11.65 Type 2 diabetes mellitus with hyperglycemia; R55 Syncope and collapse; I95.9 Hypotension, unspecified; E83.42 Hypomagnesemia; E86.0 Dehydration; F11.20 Opioid dependence, uncomplicated; F17.200 Nicotine dependence, unspecified, uncomplicated
CPT/HCPCS: 36415; 72131; 80053; 80306; 80320; 81000; 82947; 83735; 83880; 84484; 85025; 85610; 85730; 87088; 93005; 93041

== ENCOUNTER 2022-11-05 20:11 | Emergency (ER) | payer OTHER ==
[~2022-11-05] VITALS: Ht 180.3 cm; Wt 105.5 kg
[~2022-11-05 20:11] MED LIST changes: +MELO7.5T46 PO
[2022-11-05] MEDS ORDERED: predniSONE 20 MG TAB PO ONE (20:45)
[2022-11-05] MEDS ORDERED: RT-ALBUTEROL HFA 8.5 GM INHALER IH PRN (20:45)
--- NOTE | 2022-11-05 20:45 | ED Cough/URI ---
General Chief Complaint: Cough/Cold/Flu Symptoms Stated Complaint: SOA/WHEEZING Source: patient Exam Limitations: no limitations History of Present Illness Date Seen by Provider: Nov 05, 2022 Time Seen by Provider: 20:20 Initial Comments Patient is a 62-year-old diabetic smoker with history of asthma who presents with nonproductive and rib pain with increased shortness of breath and wheezing for the past 3 days. No fevers chills, nausea vomiting or sweats. Denies increased leg pain or swelling. No history of CAD, CHF. No medications or therapies taken prior to ED arrival. Timing/Duration: other Severity/Quality: other Prior Episodes/Possible Cause: other Modifying Factors: Improves With Other Associated Symptoms: other Allergies and Home Medications Allergies Coded Allergies: No Known Drug Allergies (Unverified , 05/05/17) Patient Home Medication List Home Medication List Reviewed: Yes Amlodipine Besylate (Amlodipine Besylate) 5 Mg Tablet, 5 MG PO DAILY, (Reported) Entered as Reported by: JAZ BISHOP on 03/19/21 09 Empagliflozin/Metformin HCl (Synjardy Xr 10-1,000 mg Tablet) 1 Each Tab.bp.24h, 1 EA PO DAILY, (Reported) Entered as Reported by: JAZ BISHOP on 03/19/21 09 Ergocalciferol (Vitamin D2) (Vitamin D2) 1,250 Mcg (61594 Unit) Capsule, 1,250 MCG PO WEEK, (Reported) Entered as Reported by: AKOSUA HARRIS on 02/15/22 120 Gabapentin (Gabapentin) 600 Mg Tablet, 600 MG PO BID, (Reported) Entered as Reported by: AKOSUA HARRIS on 02/15/22 1205 Glipizide (Glipizide) 10 Mg Tablet, 10 MG PO DAILY, (Reported) Entered as Reported by: ROSEMARIE DESAI on 03/18/211947 Lisinopril (Lisinopril) 40 Mg Tablet, 40 MG PO DAILY, (Reported) Entered as Reported by: JAZ BISHOP on 03/19/21 09 Meloxicam (Meloxicam) 7.5 Mg Tablet, 7.5 MG PO DAILY Prescribed by: ARIANNA COOL on 11/03/221942 Metformin HCl (Metformin HCl ER) 1,000 Mg Tab.er.24, 1,000 MG PO BID, (Reported) Entered as Reported by: AKOSUA HARRIS on 02/15/22 1205 Omeprazole (Omeprazole) 20 Mg Capsule.dr, 20 MG PO DAILY, (Reported) Entered as Reported by: JAZ BISHOP on 03/19/21 0909 Oxycodone HCl (Oxycodone HCl) 10 Mg Tablet, 10 MG PO TID PRN for PAIN-MODERATE (5-7), (Reported) Entered as Reported by: RAVEN CELIS on 03/18/21 1714 Quetiapine Fumarate (Quetiapine Fumarate) 100 Mg Tablet, 100 MG PO BID, (Reported) Entered as Reported by: JAZ BISHOP on 03/19/21 0909 Sertraline HCl (Sertraline HCl) 25 Mg Tablet, 25 MG PO DAILY, (Reported) Entered as Reported by: ROSEMARIE DESAI on 03/18/21 194 Simvastatin (Simvastatin) 10 Mg Tablet, 10 MG PO DAILY, (Reported) Entered as Reported by: RUSTY ZUÑIGA on 05/05/17 1049 Triamcinolone Acetonide (Triamcinolone Acetonide 0.5% Ointment) 0.5 % Oint, 15 GM TP BID, (Reported) Entered as Reported by: AKOSUA HARRIS on 02/15/22 1205 Review of Systems Review of Systems Constitutional: see HPI EENTM: see HPI Respiratory: see HPI Cardiovascular: see HPI Gastrointestinal: see HPI Genitourinary: see HPI Musculoskeletal: see HPI Skin: see HPI Psychiatric/Neurological: See HPI Hematologic/Lymphatic: See HPI Immunological/Allergic: see HPI All Other Systems Reviewed Negative Unless Noted: No Past Kvvjnke-Kdqffh-Krvyau Hx Patient Social History Tobacco Use?: No Immunizations Up To Date First/Initial COVID19 Vaccinat: December 2020 Second COVID19 Vaccination Leon: January 2021 Third COVID19 Vaccination Date: December 2020 Seasonal Allergies Seasonal Allergies: No Past Medical History Surgery/Hospitalization HX: neuropathy, DM, herniated discs Surgeries: Yes (right ing hernia) Respiratory: Yes COPD, Emphysema Cardiac: Yes High Cholesterol, Hypertension Neurological: Yes (seizure one time related to a med) Neuropathy Reproductive Disorders: No Genitourinary: Yes Kidney Stones Gastrointestinal: Yes (Enlarged Liver) Hepatitis Musculoskeletal: Yes Arthritis Endocrine: Yes Diabetes, Non-Insulin dep Cancer: No Psychosocial: No Integumentary: Yes (STATES HAD A WOUND "STAPH INFECTION" 2007, DENIES MRSA, NO CURRENT WOUNDS) Blood Disorders: No Physical Exam Vital Signs - First Documented 11/05/22 20:19 Temp 37.6 Pulse 128 Resp 24 B/P (MAP) 171/102 (125) Pulse Ox 93 O2 Delivery Room Air Capillary Refill : Height: 5'11.00" Weight: 210lbs. 0.0oz. 95.826199lg; 32.00 BMI Method: General Appearance: WD/WN, no apparent distress Eyes: Bilateral Eye Normal Inspection, Bilateral Eye PERRL, Bilateral Eye EOMI HEENT: PERRL/EOMI Neck: non-tender, full range of motion Respiratory: no accessory muscle use, decreased breath sounds; No accessory muscle use, No crackles, No rales; rhonchi, wheezing, inspiration, plerual rub, other Cardiovascular: regular rate, rhythm Gastrointestinal: soft, distended Extremities: normal range of motion, non-tender Neurologic/Psychiatric: alert, oriented x 3 Skin: normal color Focused Exam Sepsis Stage: Ruled Out Respiratory: Wheezing Progress/Results/Core Measures Suspected Sepsis SIRS Temperature: Pulse: Respiratory Rate: Laboratory Tests 11/05/22 22:00: White Blood Count 10.9 Blood Pressure / Mean: Laboratory Tests 11/05/22 22:00: Creatinine 0.60, Platelet Count 184, Total Bilirubin 0.8 Results/Orders Lab Results Laboratory Tests Test 11/05/22 20:45 11/05/22 22:00 Range/Units Influenza Type A (RT-PCR) Not Detected Not Detecte Influenza Type B (RT-PCR) Not Detected Not Detecte SARS-CoV-2 RNA (RT-PCR) Not Detected Not Detecte White Blood Count 10.9 4.3-11.0 10^3/uL Red Blood Count 4.43 4.30-5.52 10^6/uL Hemoglobin 12.4 L 13.3-17.7 g/dL Hematocrit 37 L 40-54 % Mean Corpuscular Volume 83 80-99 fL Mean Corpuscular Hemoglobin 28 25-34 pg Mean Corpuscular Hemoglobin Concent 34 32-36 g/dL Red Cell Distribution Width 14.6 H 10.0-14.5 % Platelet Count 184 130-400 10^3/uL Mean Platelet Volume 10.5 9.0-12.2 fL Immature Granulocyte % (Auto) 1 % Neutrophils (%) (Auto) 69 42-75 % Lymphocytes (%) (Auto) 19 12-44 % Monocytes (%) (Auto) 9 0-12 % Eosinophils (%) (Auto) 1 0-10 % Basophils (%) (Auto) 1 0-10 % Neutrophils # (Auto) 7.6 1.8-7.8 10^3/uL Lymphocytes # (Auto) 2.1 1.0-4.0 10^3/uL Monocytes # (Auto) 1.0 0.0-1.0 10^3/uL Eosinophils # (Auto) 0.1 0.0-0.3 10^3/uL Basophils # (Auto) 0.1 0.0-0.1 10^3/uL Immature Granulocyte # (Auto) 0.1 0.0-0.1 10^3/uL Sodium Level 139 135-145 MMOL/L Potassium Level 3.8 3.6-5.0 MMOL/L Chloride Level 100 98-107 MMOL/L Carbon Dioxide Level 20 L 21-32 MMOL/L Anion Gap 19 H 5-14 MMOL/L Blood Urea Nitrogen 6 L 7-18 MG/DL Creatinine 0.60 0.60-1.30 MG/DL Estimat Glomerular Filtration Rate 109 BUN/Creatinine Ratio 10 Glucose Level 156 H 70-105 MG/DL Calcium Level 9.7 8.5-10.1 MG/DL Corrected Calcium 10.0 8.5-10.1 MG/DL Total Bilirubin 0.8 0.1-1.0 MG/DL Aspartate Amino Transf (AST/SGOT) 51 H 5-34 U/L Alanine Aminotransferase (ALT/SGPT) 24 0-55 U/L Alkaline Phosphatase 97 40-136 U/L Pro-B-Type Natriuretic Peptide 638.3 H <125.0 PG/ML Total Protein 7.5 6.4-8.2 GM/DL Albumin 3.6 3.2-4.5 GM/DL My Orders Orders - JEFFERSON,DYLAN DO Chest Pa/Lat (2 View) (11/05/22 20:21) Covid 19 Inhouse Test (11/05/22 20:37) Influenza A And B By Pcr (11/05/22 20:37) Isolation Central Supply Req (11/05/22 20:37) Prednisone Tablet (Deltasone Tablet) (11/05/22 20:45) Albuterol Inhaler (Albuterol) (11/05/22 20:45) Cbc With Automated Diff (11/05/22 20:49) Comprehensive Metabolic Panel (11/05/22 20:49) Blood Culture (11/05/22 20:49) Ed Iv/Invasive Line Start (11/05/22 20:49) O2 (11/05/22 20:49) Ns Iv 1000 Ml (Sodium Chloride 0.9%) (11/05/22 21:00) Probnp Fs (11/05/22 20:50) Medications Given in ED Current Medications Medications Dose Ordered Sig/Marcio Route Start Time Stop Time Status Last Admin Dose Admin Albuterol Sulfate 4 PUFFS ONCE PRN IH 11/05/22 20:45 11/05/22 20:48 8.5 GM Prednisone 50 mg ONCE ONCE PO 11/05/22 20:45 11/05/22 20:46 DC 11/05/22 20:47 50 MG Vital Signs/I&O 11/05/22 20:19 Temp 37.6 Pulse 128 Resp 24 B/P (MAP) 171/102 (125) Pulse Ox 93 O2 Delivery Room Air Capillary Refill : Departure Communication (Admissions) Chest x-ray: No acute cardiopulmonary disease on preliminary ED review Patient with bronchitis with asthma-like symptoms with the findings of bilateral pulmonary infiltrates on x-rays. Steroids, albuterol given with significant improvement in symptoms. First dose of antibiotics given in the emergency department. Recommendations are for continued therapeutic and supportive care with PCP follow-up. Return precautions reviewed. Patient verbalizes understanding agreement discharge instructions prior to departure. Impression Primary Impression: Pneumonia Additional Impression: Reactive airway disease Disposition: HOME, SELF-CARE Condition: Stable Departure-Patient Inst. Decision time for Depature: 22:59 Referrals: LOR GONZALEZ MD (PCP) Primary Care Physician [facility] (Family) Primary Care Physician Patient Instructions: Pneumonia, Adult ED, Asthma, Adult ED Add. Discharge Instructions: You were evaluated in the emergency department for cough and chest wall pain. Exam is consistent with pneumonia with underlying COPD or asthma. Please continue to use inhaler and take newly prescribed medications as directed. Follow-up with your PCP in 2 to 3 days for reevaluation. Return to the ED if new or worsening symptoms. All discharge instructions reviewed with patient and/or family. Voiced understanding. Scripts Prednisone (Prednisone) 20 Mg Tab 40 MG PO DAILY, #12 TAB 0 Refills Prov: DYLAN JEFFERSON DO 11/05/22 Doxycycline Hyclate (Doxycycline Hyclate) 100 Mg Tablet 100 MG PO BID, #20 TAB 0 Refills Prov: DYLAN JEFFERSON DO 11/05/22 DYLAN JEFFERSON DO Nov 05, 2022 20:45
[2022-11-05] MEDS ORDERED: NS IV 1000 ML 1,000 ML IV SCH (21:00)
[2022-11-05 22:24] LABS: BASOPHILS # (AUTO) 0.1 10^3/uL (0.0-0.1); BASOPHILS % (AUTO) 1 % (0-10); EOSINOPHILS # (AUTO) 0.1 10^3/uL (0.0-0.3); EOSINOPHILS % (AUTO) 1 % (0-10); HEMATOCRIT 37 % (40-54); HEMOGLOBIN 12.4 g/dL (13.3-17.7); LYMPHOCYTES # (AUTO) 2.1 10^3/uL (1.0-4.0); LYMPHOCYTES % (AUTO) 19 % (12-44); MEAN CORPUSCULAR HEMOGLOBIN 28 pg (25-34); MEAN CORPUSCULAR HGB CONC 34 g/dL (32-36); MEAN CORPUSCULAR VOLUME 83 fL (80-99); MEAN PLATELET VOLUME 10.5 fL (9.0-12.2); MONOCYTES % (AUTO) 9 % (0-12); NEUTROPHILS # (AUTO) 7.6 10^3/uL (1.8-7.8); NEUTROPHILS % (AUTO) 69 % (42-75); PLATELET COUNT 184 10^3/uL (130-400); WHITE BLOOD COUNT 10.9 10^3/uL (4.3-11.0)
[2022-11-05 22:47] LABS: CALCIUM 9.7 MG/DL (8.5-10.1); CREATININE SERUM 0.6 MG/DL (0.60-1.30); POTASSIUM 3.8 MMOL/L (3.6-5.0)
[2022-11-05 22:48] LABS: ALBUMIN 3.6 GM/DL (3.2-4.5); BILIRUBIN,TOTAL 0.8 MG/DL (0.1-1.0); TOTAL PROTEIN 7.5 GM/DL (6.4-8.2)
[2022-11-05] MEDS ORDERED: PRD20T PO (23:00)
[2022-11-05] MEDS ORDERED: DOXY100T2 PO (23:00)
[2022-11-05] MEDS ORDERED: DOXYCYCLINE 100 MG (VIBRAMYCIN) TABLET PO SCH (23:15)
[2022-11-05 23:22] VITALS: BP 172/112
--- NOTE | 2022-11-06 08:40 | Diagnostic Imaging Report ---
EXAMINATION: Chest 2 view HISTORY: Cough. COMPARISON: 03/20/2021. FINDINGS: Patchy and consolidative opacities are seen in the bilateral perihilar regions and right lung base. No pleural effusion or pneumothorax. Stable cardiac silhouette. No acute osseous abnormalities. IMPRESSION: 1. Opacities in the perihilar regions and right lung base, similar in appearance to the prior exam. Findings appear chronic. Recommend correlation with patient history and if indicated CT chest to further characterize. Dictated by: Dictated on workstation # [id number]
== END 2022-11-05 23:22 | disposition home or self-care (01) ==
LOC: EDUNIT# 20:11 → ER FS 20:14
DX: J18.9 Pneumonia, unspecified organism (principal); J44.9 Chronic obstructive pulmonary disease, unspecified; Z20.822 Contact with and (suspected) exposure to COVID-19; Z87.891 Personal history of nicotine dependence
CPT/HCPCS: 36415; 71046; 80053; 83880; 85025; 87040; 87636; 94640

== ENCOUNTER 2022-12-04 12:50 | Emergency (ER) | payer OTHER ==
[~2022-12-04] VITALS: Ht 180.3 cm; Wt 104.3 kg
[~2022-12-04 12:50] MED LIST changes: +DOXY100T2 PO
[2022-12-04 13:12] LABS: BASOPHILS % (AUTO) 0 % (0-10); EOSINOPHILS % (AUTO) 1 % (0-10); HEMATOCRIT 46 % (40-54); LYMPHOCYTES # (AUTO) 2.7 10^3/uL (1.0-4.0); LYMPHOCYTES % (AUTO) 38 % (12-44); MEAN CORPUSCULAR HEMOGLOBIN 28 pg (25-34); MEAN CORPUSCULAR HGB CONC 33 g/dL (32-36); MEAN CORPUSCULAR VOLUME 85 fL (80-99); MEAN PLATELET VOLUME 9.6 fL (9.0-12.2); MONOCYTES # (AUTO) 0.6 10^3/uL (0.0-1.0); MONOCYTES % (AUTO) 8 % (0-12); NEUTROPHILS # (AUTO) 3.8 10^3/uL (1.8-7.8); NEUTROPHILS % (AUTO) 53 % (42-75); PLATELET COUNT 196 10^3/uL (130-400); WHITE BLOOD COUNT 7.2 10^3/uL (4.3-11.0)
[2022-12-04] MEDS ORDERED: LACTATED RINGERS 0 ML IV ONE (13:13)
[2022-12-04] MEDS ORDERED: CEFEPIME INJECTION 1,000 MG in NS (IVPB) 50 ML IV ONE (13:15)
[2022-12-04] MEDS ORDERED: LACTATED RINGERS 1,000 ML IV ONE (13:15)
[2022-12-04 13:27] LABS: ALBUMIN 4.1 GM/DL (3.2-4.5); CHLORIDE 99 MMOL/L (98-107); INR 1.1 (0.8-1.4); POTASSIUM 3.7 MMOL/L (3.6-5.0); PROTHROMBIN TIME PATIENT 14.3 SEC (12.2-14.7)
[2022-12-04 13:28] LABS: SODIUM 138 MMOL/L (135-145)
[2022-12-04 13:29] LABS: CALCIUM 10.2 MG/DL (8.5-10.1)
[2022-12-04 13:30] LABS: GLUCOSE 354 MG/DL (70-105); TOTAL PROTEIN 7.3 GM/DL (6.4-8.2)
[2022-12-04 13:31] LABS: CARBON DIOXIDE 21 MMOL/L (21-32)
[2022-12-04 13:33] LABS: ALKALINE PHOSPHATASE 78 U/L (40-136)
[2022-12-04 13:34] LABS: CREATININE SERUM 1.43 MG/DL (0.60-1.30); GFR ESTIMATED 55
[2022-12-04 13:35] LABS: BUN/CREATININE RATIO 10
[2022-12-04 13:36] LABS: ALANINE AMINOTRANSFERASE 45 U/L (0-55)
--- NOTE | 2022-12-04 13:38 | Diagnostic Imaging Report ---
INDICATION: Dizziness, diaphoretic, hypotension. TECHNIQUE: Single-view chest from 12/04/2022. COMPARISON: 03/20/2021. FINDINGS: The heart is prominent. Pulmonary vasculature is normal. Bibasilar atelectasis is noted. Early infiltrates not excluded. No effusions. No pneumothorax. IMPRESSION: 1. Bibasilar atelectasis with early infiltrate not excluded. Dictated by: Dictated on workstation # [id number]
[2022-12-04] MEDS ORDERED: LACTATED RINGERS 1,000 ML IV SCH (14:00)
--- NOTE | 2022-12-04 14:08 | ED General ---
General Chief Complaint: Dizziness/Syncope Stated Complaint: DIZZINESS Nursing Triage Note: PT BROUGHT IN BY [facility] FROM [facility]ARKING LOT WITH COMPLAINT OF DIZZINESS, DIAPHORETIC, AND HYPOTENSIVE. PT STATES HE WAS DRIVING HIS DAD TO DIALYSIS AND STARTED NOT FEELING RIGHT AND HAD HIS DAD DRIVE THE REST OF THE WAY. PTS BP WAS INITALLY 59/40 FOR EMS. ALERT AND ORIENTED ON ARRIVAL. DENIES PAIN. Source of Information: Patient Exam Limitations: No Limitations History of Present Illness Date Seen by Provider: Dec 04, 2022 Time Seen by Provider: 12:55 Initial Comments Patient is a 62-year-old male who presents to the emergency department via EMS for evaluation of sudden onset of dizziness, diaphoresis, and hypotension. Patient states he did not feel well since waking up. He was driving his dad to dialysis today but had to switch and let his father drive due to patient feeling unwell. BP was initially 59/40 for EMS. Upon arrival to the emergency de partment patient states he still feels slightly unwell but much better than he did when his symptoms began 15 to 30 minutes prior to arrival. He denies having chest pain at any point. Also denies any shortness of air. States he has a history of diabetes and hypertension. Denies any history of symptoms similar to those that bring him to the ER today. Allergies and Home Medications Allergies Coded Allergies: No Known Drug Allergies (Unverified , 05/05/17) Patient Home Medication List Home Medication List Reviewed: Yes Amlodipine Besylate (Amlodipine Besylate) 5 Mg Tablet, 5 MG PO DAILY, (Reported) Entered as Reported by: JAZ BISHOP on 03/19/21 09 Doxycycline Hyclate (Doxycycline Hyclate) 100 Mg Tablet, 100 MG PO BID Prescribed by: DYLAN JEFFERSON on 11/05/22 2300 Empagliflozin/Metformin HCl (Synjardy Xr 10-1,000 mg Tablet) 1 Each Tab.bp.24h, 1 EA PO DAILY, (Reported) Entered as Reported by: JAZ BISHOP on 03/19/21 09 Ergocalciferol (Vitamin D2) (Vitamin D2) 1,250 Mcg (97366 Unit) Capsule, 1,250 MCG PO WEEK, (Reported) Entered as Reported by: AKOSUA HARRIS on 02/15/22 1205 Gabapentin (Gabapentin) 600 Mg Tablet, 600 MG PO BID, (Reported) Entered as Reported by: AKOSUA HARRIS on 02/15/22 120 Glipizide (Glipizide) 10 Mg Tablet, 10 MG PO DAILY, (Reported) Entered as Reported by: ROSEMARIE DESAI on 03/18/211947 Lisinopril (Lisinopril) 40 Mg Tablet, 40 MG PO DAILY, (Reported) Entered as Reported by: JAZ BISHOP on 03/19/21 0909 Meloxicam (Meloxicam) 7.5 Mg Tablet, 7.5 MG PO DAILY Prescribed by: ARIANNA COOL on 11/03/221942 Metformin HCl (Metformin HCl ER) 1,000 Mg Tab.er.24, 1,000 MG PO BID, (Reported) Entered as Reported by: AKOSUA HARRIS on 02/15/22 120 Omeprazole (Omeprazole) 20 Mg Capsule.dr, 20 MG PO DAILY, (Reported) Entered as Reported by: JAZ BISHOP on 03/19/21 0909 Oxycodone HCl (Oxycodone HCl) 10 Mg Tablet, 10 MG PO TID PRN for PAIN-MODERATE (5-7), (Reported) Entered as Reported by: RAEVN CELIS on 03/18/21 1714 Prednisone (Prednisone) 20 Mg Tab, 40 MG PO DAILY Prescribed by: DYLAN JEFFERSON on 11/05/22 2300 Quetiapine Fumarate (Quetiapine Fumarate) 100 Mg Tablet, 100 MG PO BID, (Reported) Entered as Reported by: JAZ BISHOP on 03/19/21 0909 Sertraline HCl (Sertraline HCl) 25 Mg Tablet, 25 MG PO DAILY, (Reported) Entered as Reported by: ROSEMARIE DESAI on 03/18/211947 Simvastatin (Simvastatin) 10 Mg Tablet, 10 MG PO DAILY, (Reported) Entered as Reported by: RUSTY ZUÑIGA on 05/05/17 1049 Triamcinolone Acetonide (Triamcinolone Acetonide 0.5% Ointment) 0.5 % Oint, 15 GM TP BID, (Reported) Entered as Reported by: AKOSUA HARRIS on 02/15/22 120 Review of Systems Review of Systems Constitutional: see HPI, dizziness EENTM: no symptoms reported Respiratory: no symptoms reported Cardiovascular: no symptoms reported Gastrointestinal: no symptoms reported Genitourinary: no symptoms reported Musculoskeletal: no symptoms reported Skin: no symptoms reported Psychiatric/Neurological: No Symptoms Reported Hematologic/Lymphatic: No Symptoms Reported Immunological/Allergic: no symptoms reported Past Nzpazrz-Smkfaq-Fqaixr Hx Patient Social History Tobacco Use?: Yes Tobacco type used: Cigarettes Smoking Status: Current Everyday Smoker Use of E-Cig and/or Vaping dev: No Substance use?: No Additional substance use comme: PAST IV DRUG USER Alcohol Use?: Yes Alcohol Frequency: Daily Pt feels they are or have been: No Immunizations Up To Date First/Initial COVID19 Vaccinat: December 2020 Second COVID19 Vaccination Leon: January 2021 Third COVID19 Vaccination Date: December 2020 Seasonal Allergies Seasonal Allergies: No Past Medical History Surgery/Hospitalization HX: neuropathy, DM, herniated discs Surgeries: Yes (right ing hernia) Respiratory: Yes COPD, Emphysema Cardiac: Yes High Cholesterol, Hypertension Neurological: Yes (seizure one time related to a med) Neuropathy Reproductive Disorders: No Genitourinary: Yes Kidney Stones Gastrointestinal: Yes (Enlarged Liver) Hepatitis Musculoskeletal: Yes Arthritis Endocrine: Yes Diabetes, Non-Insulin dep Cancer: No Psychosocial: No Integumentary: Yes (STATES HAD A WOUND "STAPH INFECTION" 2007, DENIES MRSA, NO CURRENT WOUNDS) Blood Disorders: No Physical Exam Vital Signs Vital Signs - First Documented 12/04/22 12:52 Temp 34.0 Pulse 105 Resp 15 B/P (MAP) 67/50 (56) Pulse Ox 98 O2 Delivery Room Air O2 Flow Rate 2.00 Capillary Refill : Less Than 3 Seconds Height, Weight, BMI Height: 5'11.00" Weight: 210lbs. 0.0oz. 95.144545yj; 32.00 BMI Method: General Appearance: No Apparent Distress, WD/WN HEENT: PERRL/EOMI, TMs Normal, Normal ENT Inspection, Pharynx Normal Neck: Full Range of Motion, Normal Inspection, Non Tender, Supple Respiratory: Chest Non Tender, Lungs Clear, Normal Breath Sounds, No Accessory Muscle Use, No Respiratory Distress Cardiovascular: Regular Rate, Rhythm Gastrointestinal: Non Tender, Soft Neurologic/Psychiatric: Alert, Oriented x3, No Motor/Sensory Deficits, Normal Mood/Affect Skin: Normal Color, Warm/Dry Focused Exam Lactate Level 12/04/22 13:02: Lactic Acid Level 3.24*H Lactic Acid Level Laboratory Tests Test 2/8/23 13:02 Lactic Acid Level 3.24 MMOL/L (0.50-2.00) *H Progress/Results/Core Measures Suspected Sepsis SIRS Temperature: Pulse: 105 Respiratory Rate: 15 Laboratory Tests 12/04/22 13:02: White Blood Count 7.2 Blood Pressure 67 /50 Mean: 56 12/04/22 13:02: Lactic Acid Level 3.24*H Laboratory Tests 12/04/22 13:02: Creatinine 1.43H, INR Comment 1.1, Platelet Count 196, Total Bilirubin 1.0 Results/Orders Lab Results Laboratory Tests Test 12/04/22 13:02 Range/Units White Blood Count 7.2 4.3-11.0 10^3/uL Red Blood Count 5.43 4.30-5.52 10^6/uL Hemoglobin 15.0 13.3-17.7 g/dL Hematocrit 46 40-54 % Mean Corpuscular Volume 85 80-99 fL Mean Corpuscular Hemoglobin 28 25-34 pg Mean Corpuscular Hemoglobin Concent 33 32-36 g/dL Red Cell Distribution Width 16.2 H 10.0-14.5 % Platelet Count 196 130-400 10^3/uL Mean Platelet Volume 9.6 9.0-12.2 fL Immature Granulocyte % (Auto) 1 % Neutrophils (%) (Auto) 53 42-75 % Lymphocytes (%) (Auto) 38 12-44 % Monocytes (%) (Auto) 8 0-12 % Eosinophils (%) (Auto) 1 0-10 % Basophils (%) (Auto) 0 0-10 % Neutrophils # (Auto) 3.8 1.8-7.8 10^3/uL Lymphocytes # (Auto) 2.7 1.0-4.0 10^3/uL Monocytes # (Auto) 0.6 0.0-1.0 10^3/uL Eosinophils # (Auto) 0.0 0.0-0.3 10^3/uL Basophils # (Auto) 0.0 0.0-0.1 10^3/uL Immature Granulocyte # (Auto) 0.0 0.0-0.1 10^3/uL Prothrombin Time 14.3 12.2-14.7 SEC INR Comment 1.1 0.8-1.4 Activated Partial Thromboplast Time 24 24-35 SEC Sodium Level 138 135-145 MMOL/L Potassium Level 3.7 3.6-5.0 MMOL/L Chloride Level 99 98-107 MMOL/L Carbon Dioxide Level 21 21-32 MMOL/L Anion Gap 18 H 5-14 MMOL/L Blood Urea Nitrogen 15 7-18 MG/DL Creatinine 1.43 H 0.60-1.30 MG/DL Estimat Glomerular Filtration Rate 55 BUN/Creatinine Ratio 10 Glucose Level 354 H 70-105 MG/DL Lactic Acid Level 3.24 *H 0.50-2.00 MMOL/L Calcium Level 10.2 H 8.5-10.1 MG/DL Corrected Calcium 10.1 8.5-10.1 MG/DL Total Bilirubin 1.0 0.1-1.0 MG/DL Aspartate Amino Transf (AST/SGOT) 43 H 5-34 U/L Alanine Aminotransferase (ALT/SGPT) 45 0-55 U/L Alkaline Phosphatase 78 40-136 U/L Troponin I < 0.028 <0.028 NG/ML Total Protein 7.3 6.4-8.2 GM/DL Albumin 4.1 3.2-4.5 GM/DL My Orders Orders - VETO KUMAR STOCK PULLER Cbc With Automated Diff (12/04/22 13:02) Comprehensive Metabolic Panel (12/04/22 13:02) Blood Culture (12/04/22 13:02) Sputum Culture (12/04/22 13:02) Urinalysis (12/04/22 13:02) Urine Culture (12/04/22 13:02) Protime With Inr (12/04/22 13:02) Partial Thromboplastin Time (12/04/22 13:02) Chest 1 View, Ap/Pa Only (12/04/22 13:02) Ed Iv/Invasive Line Start (12/04/22 13:02) Ed Iv/Invasive Line Start (12/04/22 13:02) Vital Signs Adult Sepsis Patie Q15M (12/04/22 13:02) O2 (12/04/22 13:02) Remove Rings In Anticipation O (12/04/22 13:02) Lactic Acid Analyzer (12/04/22 13:02) Lactated Ringers (Lr 1000 Ml Iv Solution (12/04/22 13:15) Cefepime Injection (Maxipime Injection) (12/04/22 13:15) Ekg Tracing (12/04/22 13:02) Troponin I Patricio (12/04/22 13:04) Lactated Ringers (Lr 1000 Ml Iv Solution (12/04/22 13:13) Lactated Ringers (Lr 1000 Ml Iv Solution (12/04/22 14:00) Medications Given in ED Current Medications Medications Dose Ordered Sig/Marcio Route Start Time Stop Time Status Last Admin Dose Admin Cefepime HCl 1000 mg/Sodium Chloride 50 ml @ 100 mls/hr ONCE ONCE IV 12/04/22 13:15 12/04/22 13:44 DC 12/04/22 13:49 100 MLS/HR Lactated Ringer's 1,000 ml @ 0 mls/hr Q0M ONCE IV 12/04/22 13:15 12/04/22 13:16 DC 12/04/22 13:27 0 MLS/HR Vital Signs/I&O 12/04/22 12/04/22 12/04/22 12:52 12:52 15:19 Temp 34.0 Pulse 105 97 Resp 15 18 B/P (MAP) 67/50 (56) 98/67 Pulse Ox 98 99 O2 Delivery Room Air Nasal Cannula O2 Flow Rate 2.00 Capillary Refill : Less Than 3 Seconds Blood Pressure Mean: 56 Progress Note : Progress Note Patient is awake and alert on my arrival to the room. No adventitious lung sounds or increased work of breathing noted. Vital signs are notable for hypotension and slight tachycardia. Patient was placed on 2 L of oxygen via nasal cannula by EMS. They did not state patient was hypoxic at any point but placed the patient on oxygen for comfort. Patient states he feels better than he did initially. Septic work-up ordered including CBC, CMP, blood cultures, urine cultures, urinalysis, coagulation studies, EKG, troponin, chest x-ray. A liter of LR IV bolus was ordered as well as a dose of IV cefepime. CBC is unremarkable with no leukocytosis or evidence of anemia. CMP notable for slightly increased anion gap along with hyperglycemia. Lactic acid is elevated above 3. Coagulation studies are unremarkable. EKG without any acute ischemic changes or arrhythmia. Patient does have some nonspecific ST changes in the anteroseptal leads but this appears consistent with prior EKG from November 03, 2022. Patient's blood pressure did improve after the first liter of LR but then dropped into the high 80s and thus a second liter of LR was given. Patient had significant improvement thereafter with systolic blood pressure in the high 90s to low 100s. Patient's tachycardia resolved. Patient states he feels much better. Patient was going to be admitted but upon discussing this patient states he is unable to stay in the hospital as he has to take his father to tomorrow for a procedure. We discussed risks of leaving versus benefits of staying. Patient verbalized understanding of these and persisted his desire to be discharged. I encouraged him to return to the ER for any concerning symptoms. I also encouraged him to follow-up with his PCP in the very near future. Patient verbalized understanding. Departure Impression Primary Impression: Hypotension Qualified Codes: I95.9 - Hypotension, unspecified Additional Impressions: Elevated lactic acid level Near syncope Left against medical advice Disposition: 07 AGAINST MEDICAL ADVICE Condition: Stable Departure-Patient Inst. Decision time for Depature: 15:05 Referrals: LOR GONZALEZ MD (PCP) Primary Care Physician [facility]/[place] (Family) Primary Care Physician Patient Instructions: Low Blood Pressure, Near Fainting (DC) Add. Discharge Instructions: You have chosen to left you have chosen to leave AGAINST MEDICAL ADVICE from the emergency department. Please know you are welcome to return to the ER at any point if you feel like your symptoms are worsening. You were seen today for a decrease in your blood pressure. We are unsure exactly of what caused this drop in your blood pressure. At the time of your discharge, your blood pressure has improved but is still on the low end of normal. It is important you rest today and be cautious changing positions from lying to sitting or sitting to standing as this may cause her blood pressure to drop and make you more likely to pass out. All discharge instructions reviewed with patient and/or family. Voiced understanding. VETO KUMAR APRN Dec 04, 2022 14:08
[2022-12-04 15:19] VITALS: BP 98/67
== END 2022-12-04 15:19 | disposition left against medical advice (07) ==
LOC: EDUNIT# 12:50 → ER 12:51
DX: I95.9 Hypotension, unspecified (principal); I10 Essential (primary) hypertension; R55 Syncope and collapse; R74.02 Elevation of levels of lactic acid dehydrogenase [LDH]; F17.200 Nicotine dependence, unspecified, uncomplicated
CPT/HCPCS: 36415; 71045; 80053; 83605; 84484; 85025; 85610; 85730; 87040; 93005